=== PATIENT | female | born 1950 | race Caucasian/White ===

== ENCOUNTER 2019-07-06 01:04 | Outpatient (CLI) | payer MEDICARE, MEDICAID, SELFPAY ==
--- NOTE | 2019-07-06 11:05 | DI.RAD_ITS ---
EXAM: XR HAND RT COMPLETE INDICATION: Rt hand deformity, M21.941, RA, M06.9, rt hand pain, M79.641, OA, M19.90. COMPARISON: DEXA BONE DENSITY WITH CHITRA from 09/08/2017 TECHNIQUE: 2D digital imaging was performed. FINDINGS: There is severe narrowing of the radiocarpal joint space. There are bony erosions of the distal radi us, ulnar styloid, navicular and triquetrum. There is also severe narrowing at the proximal carpal r ow and at the carpal metacarpal joints. Bony erosions are seen at the base of the 1st metacarpal and within the trapezium. The 3rd metacarpophalangeal joint shows severe narrowing as well as erosions on both sides of the joint. The remaining metacarpophalangeal joints are unremarkable. There is some spurring and narrowing of the interphalangeal joints of the fingers and thumb without evidence of er osions. IMPRESSION: Severe joint space narrowing and bony erosions in the carpal region as well as 3rd metacarpophalangea l joint are consistent with rheumatoid arthritis.
[2019-07-06 19:32] LABS: HCT 32.4 % (36.0-46.0); Mean Corp. HGB Concentration 30.9 g/dL (32.0-36.0); Mean Corpuscular Hemoglobin 25.1 pg (27.0-33.0); Mean Corpuscular Volume 81.2 fL (80-95); Mean Platelet Volume 9.9 fL (8.0-11.0); Platelet Count 527 x1000/uL (130-400); RBC 3.99 m/cumm (4.00-5.20); RBC Distribution Width 15.8 % (11.7-14.6); White Blood Cell Count 6.56 k/cumm (4.4-10.8)
[2019-07-06 19:50] LABS: Anion Gap 9.7 mmol/L (3-11); BUN 17 mg/dL (7-18); CO2 30.3 mmol/L (21.0-32.0); CREATININE 0.88 mg/dL (0.55-1.02); Calcium 9.5 mg/dL (8.5-10.1); Calculated LDL 126 mg/dL (<100); Chloride 101 mmol/L (98-107); Cholesterol 197 mg/dL (<200); Glucose 101 mg/dL (74-106); HDL Cholesterol 57 mg/dL (40-60); Potassium 4.5 mmol/L (3.5-5.1); Sodium 141 mmol/L (136-145); Triglyceride 74 mg/dL (<150)
== END 2019-07-06 01:24 ==
PROVIDERS: PCP Student in an Organized Health Care Education/Training Program; Visit Provider Student in an Organized Health Care Education/Training Program
DX: M06.9 Rheumatoid arthritis, unspecified (principal); M79.641 Pain in right hand; M21.941 Unspecified acquired deformity of hand, right hand; M19.041 Primary osteoarthritis, right hand; R79.89 Other specified abnormal findings of blood chemistry; E78.5 Hyperlipidemia, unspecified; D64.9 Anemia, unspecified; Z82.49 Family history of ischemic heart disease and other diseases of the circulatory system
CPT/HCPCS: 80048; 80061; 85027; 73130

== ENCOUNTER 2020-03-02 04:03 | Outpatient (CLI) | payer MEDICARE, MEDICAID, SELFPAY ==
--- NOTE | 2020-03-02 15:22 | DI.MAMMO_ITS ---
EXAM: MAMMO SCREENING CLINICAL HISTORY: screening,Z12.39 TECHNIQUE: Mammograms were interpreted according to the usual protocol including computer analysis w [employer] CAD system, tomosynthesis and C-view imaging. COMPARISON: FINDINGS: The breasts are of moderate density with fairly symmetrical distribution of fibroglandular tissue. N o dominant mass is identified in either breast. There are multiple areas of grouped calcifications o f both breasts, these appear to be consistent with acinar benign calcifications and show little inter nadiya change in comparison with prior mammogram of September 2017. No new suspicious clumped microcalcificat ion seen. No other significant change IMPRESSION: . no specific evidence of malignancy at this time. Routine screening examinations are suggested at y early intervals in this age group according to the ACS ACR guidelines. BI-RADS Category 1 - Negative Breast Density - Category B - Scattered areas of fibroglandular density
== END 2020-03-02 04:23 ==
PROVIDERS: PCP Student in an Organized Health Care Education/Training Program; Visit Provider Student in an Organized Health Care Education/Training Program
DX: Z12.31 Encounter for screening mammogram for malignant neoplasm of breast (principal)
CPT/HCPCS: 77063; 77067

== ENCOUNTER 2021-01-11 10:11 | Outpatient (REF) | payer MEDICARE, MEDICAID, SELFPAY ==
[2021-01-11 15:02] LABS: HCT 31.1 % (36.0-46.0); HGB 9.4 g/dL (11.2-15.7); MCH 23.5 pg (27.0-33.0); MCHC 30.2 % (32.0-36.0); MCV 77.8 fL (80-95); MPV 10.2 fL (8.0-11.0); Platelet Count 511 10^3/uL (130-400); RDW 16.6 % (11.7-14.6); RDW-SD 46.4 fL
[2021-01-11 16:44] LABS: ALT 13 U/L (14-59); AST 16 U/L (15-37); Albumin 3.3 g/dL (3.4-5.0); Alkaline Phosphatase 103 U/L (46-116); Anion Gap 9.6 mmol/L (3-11); BUN 17 mg/dL (7-18); Bilirubin, Total 0.2 mg/dL (0.2-1.0); CO2 28.4 mmol/L (21.0-32.0); CREATININE 0.7 mg/dL (0.55-1.02); Calcium 9.6 mg/dL (8.5-10.1); Calculated LDL 127 mg/dL (<100); Chloride 101 mmol/L (98-107); Cholesterol 208 mg/dL (<200); Glucose 95 mg/dL (74-106); HDL Cholesterol 63 mg/dL (40-60); Potassium 4.7 mmol/L (3.5-5.1); Sodium 139 mmol/L (136-145); TSH (W/Ref FT4) 2.18 uIU/mL (0.36-3.74); Total Protein 8.1 g/dL (6.4-8.2); Triglyceride 93 mg/dL (<150); Vitamin B12 314 pg/mL (193-986)
== END 2021-01-11 10:12 | disposition home or self-care (01) ==
LOC: LBO 10:11
PROVIDERS: PCP Student in an Organized Health Care Education/Training Program; Visit Provider Student in an Organized Health Care Education/Training Program
DX: R53.83 Other fatigue (principal); R79.89 Other specified abnormal findings of blood chemistry; R20.0 Anesthesia of skin; R26.89 Other abnormalities of gait and mobility; D64.9 Anemia, unspecified; K21.9 Gastro-esophageal reflux disease without esophagitis; R03.0 Elevated blood-pressure reading, without diagnosis of hypertension; Z13.220 Encounter for screening for lipoid disorders; E86.0 Dehydration; Z79.1 Long term (current) use of non-steroidal anti-inflammatories (NSAID); Z86.2 Personal history of diseases of the blood and blood-forming organs and certain disorders involving the immune mechanism
CPT/HCPCS: 80053; 80061; 85027; 82607; 84443

== ENCOUNTER 2021-09-12 11:14 | Outpatient (REF) | payer OTHER, MEDICAID, SELFPAY ==
[2021-09-12 15:49] LABS: HCT 29.1 % (36.0-46.0); HGB 8.4 g/dL (11.2-15.7); MCH 21.7 pg (27.0-33.0); MCHC 28.9 % (32.0-36.0); MCV 75.2 fL (80-95); MPV 10.6 fL (8.0-11.0); Platelet Count 436 10^3/uL (130-400); RBC 3.87 10^6/uL (3.93-5.22); RDW 17.9 % (11.7-14.6); RDW-SD 48.2 fL; Reticulocyte 1.4 % (0.5-2.4); WBC 6.69 10^3/uL (4.4-10.8)
[2021-09-12 16:02] LABS: Iron 20 ug/dL (50-170); Total Iron Binding Capacity 390 ug/dL (250-450); Transferrin Sat 5 % (15-50)
[2021-09-12 19:08] LABS: ALT 9 U/L (14-59); AST 14 U/L (15-37); Albumin 3.4 g/dL (3.4-5.0); Alkaline Phosphatase 119 U/L (46-116); Anion Gap 8.6 mmol/L (3-11); BUN 17 mg/dL (7-18); Bilirubin, Total 0.2 mg/dL (0.2-1.0); CO2 28.4 mmol/L (21.0-32.0); CREATININE 0.8 mg/dL (0.55-1.02); Calcium 9.3 mg/dL (8.5-10.1); Chloride 102 mmol/L (98-107); Ferritin 13 ng/mL (8-252); Folate 4.5 ng/mL (8.6-20.0); Glucose 93 mg/dL (74-106); Potassium 4.8 mmol/L (3.5-5.1); Sodium 139 mmol/L (136-145); TSH (W/Ref FT4) 3.25 uIU/mL (0.36-3.74); Total Protein 8.2 g/dL (6.4-8.2); Vitamin B12 225 pg/mL (193-986)
== END 2021-09-12 11:15 | disposition home or self-care (01) ==
LOC: LBN 11:14
PROVIDERS: PCP Student in an Organized Health Care Education/Training Program; Visit Provider Student in an Organized Health Care Education/Training Program
DX: D64.9 Anemia, unspecified (principal); K21.9 Gastro-esophageal reflux disease without esophagitis; K90.9 Intestinal malabsorption, unspecified; M06.9 Rheumatoid arthritis, unspecified; Z79.899 Other long term (current) drug therapy; I10 Essential (primary) hypertension; R77.0 Abnormality of albumin
CPT/HCPCS: 80053; 82306; 85027; 82607; 82728; 82746; 83540; 83550; 84443; 85045

== ENCOUNTER 2021-09-24 14:40 | Outpatient (CLI) | payer OTHER, MEDICAID, SELFPAY ==
--- NOTE | 2021-09-24 14:30 | RT.EKG_ITS ---
APPROVED REPORT Exam: Resting ECG Reason for Exam: chest pain Patient Location: O HR:55 bpm ECG Measurements Heart Rate 55 AXIS SD 135 P 34 QRSd 95 QRS -8 QT 468 T 19 QTc 446 Conclusion Sinus bradycardia...rate< 60 Normal Electrocardiogram
== END 2021-09-24 14:41 | disposition home or self-care (01) ==
LOC: DI.KIM 14:41
PROVIDERS: PCP Student in an Organized Health Care Education/Training Program; Visit Provider Student in an Organized Health Care Education/Training Program
DX: R07.9 Chest pain, unspecified (principal)
CPT/HCPCS: 93010

== ENCOUNTER → 2021-10-02 00:12 | Outpatient (CLI) | payer OTHER, MEDICAID, SELFPAY ==
--- NOTE | 2021-10-02 10:28 | DI.US_ITS ---
APPROVED REPORT EXAM: Comprehensive 2D, Doppler, and color-flow Echocardiogram Patient Location: Out-Patient [employer] Operator: Yarelis Singletary RDCS (AE) Indications: New onset chest pain, bilateral ankle edema Other Information Study Quality: Adequate Conclusion Normal left ventricular wall thickness and chamber size. Estimated ejection fraction is 60%. Wall m otion is normal Normal right ventricular size and systolic function Both atria are normal in size There is no structural or hemodynamically significant valvular disease Mildly dilated ascending aorta measuring 3.6 cm Estimated right ventricular systolic pressure is 31 mmHg Wall motion Left Ventricle The left ventricle is normal size. The left ventricular systolic function is normal. The left ventric ular ejection fraction is within the normal range. There is normal left ventricular wall thickness. T here is normal LV segmental wall motion. There is no ventricular septal defect visualized. LVEF is 60 %. Right Ventricle The right ventricle is normal size. The right ventricular systolic function is normal. The RVSP is 31 .4 mmHg. Atria The left atrium size is normal. The right atrium size is normal. The interatrial septum is intact wit h no evidence for an atrial septal defect. Aortic Valve The aortic valve is normal in structure. Aortic valve is trileaflet. There is no aortic valvular sten osis. No aortic regurgitation is present. Mitral Valve The mitral valve is normal in structure. No evidence of mitral valve stenosis. Trace to mild mitral r egurgitation. Tricuspid Valve The tricuspid valve is normal in structure. There is no tricuspid valve stenosis. Trace tricuspid reg urgitation. Pulmonic Valve The pulmonary valve is normal in structure. There is no pulmonic valvular stenosis. There is no pulmo anish valvular regurgitation. Great Vessels The aortic root is normal in size. The ascending aorta is mildly dilated. Aortic arch is not well vis ualized. IVC is normal in size and collapses >50% with inspiration. Pericardium There is no pericardial effusion. 2D Dimensions IVSD d PLAX 0.97 cm F: 0.6-1.0 LV Vol A2C d MOD 152.4 mL LVPW d PLAX 0.97 cm F: 0.6 - 1.0 LV Vol A4C d MOD 136.8 mL LVID d PLAX 4.92 cm F: 3.8 - 5.2 LA vol/ BSA A4C s A-L 44.2 mL/m2 LVDs 3.25 cm F: 2.2 - 3.5 LA Area A4C s MOD 26.05 cm2 Ao Root d 2.85 cm F: 2.7 - 3.3 LV EF A4C MOD 59.0 % RA Area A4C 17.49 cm2 LV EF A2C MOD 60.4 % RA Vol/ BSA A4C s A-L 23.9 mL/m2 LV EF Biplane MOD 60.2 % Ao Asc Diam d 3.60 cm F: 2.3 - 3.1 SV 90.19 mL LV EF Teichholz 61.6 % SV Index 44.88 mL/m2 LVEF (Salcedo's) 60.20 % F: 54 - 74 LV Volume 112.18 mL F: 46 - 106 LV Volume Index 55.81 mL/m2 F: 29 - 61 LV Vol Biplane MOD 149.8 mL FS 33.15 % M-Mode TAPSE 2.64 cm (M/F) >1.7 LV Diastology MV E' medial 0.072 (>0.07 m/s) E/A Ratio 1.1 LV E/e MED 14.20 (<14) MV E Vmax 1.02 (0.4-1.3 m/s) MV E' lateral 0.077 (>0.1 m/s) MV A Vmax 0.95 (0.4-1.3 m/s) LV E/e LAT 13.30 (<14) MV E/A Ratio 1.02 MV E/E' medial 14.21 MV E/E' lateral 13.30 Aortic Valve LVOT Area 2.93 cm2 AoV Area Vmax 2.34 cm2 LVOT Vmax 1.61 m/s AoV Area/ BSA (Vmax) 1.16 cm2/m2 LVOT Mean Chaz. 1.04 m/s ADRIANNA Mean Chaz. 2.27 cm2 LVOT Peak Grad 10.4 mmHg ADRIANNA Mean Chaz. Index 1.13 cm2/m2 LVOT Mean Grad 5.2 mmHg LVOT VTI 0.372 m LVOT Diam s 1.90 cm AoV Vmax 2.02 m/s Velocity Ratio 0.79 AoV Mean Chaz. 1.35 m/s AoV Peak Grad 16.3 mmHg LVOT SV 109.05 mL AoV Mean Grad 8.2 mmHg AoV VTI 0.430 m AoV Area VTI 2.54 cm2 AoV Area/ BSA (VTI) 1.26 cm/m2 Mitral Valve MV DT 214 (160-240 msec) MV PHT 62 msec MV Area PHT 3.54 cm2 MV VTI 0.404 m MV Area VTI 2.70 (4.0-6.0 cm2) Pulmonary Valve PV Vmax 1.38 (0.5-1.5 m/s) RVOT Peak Gr. 2.66 mmHg PV Peak Grad 7.6 mmHg RVOT Mean Gr. 1.25 mmHg PV Mean Grad 3.6 mmHg RVOT VTI 0.171 m PV VTI 0.288 m RVOT Vmax 0.81 m/s Tricuspid Valve TR Peak Grad 28.3 mmHg TR Vmax 2.66 m/s RA Pressure 3.00 mmHg RVSP (TR) 31.4 mmHg
== END ==
PROVIDERS: PCP Student in an Organized Health Care Education/Training Program; Visit Provider Student in an Organized Health Care Education/Training Program
DX: M25.471 Effusion, right ankle (principal); M25.472 Effusion, left ankle; R07.9 Chest pain, unspecified; I77.819 Aortic ectasia, unspecified site
CPT/HCPCS: 93306

== ENCOUNTER → 2021-10-24 01:02 | Outpatient (CLI) | payer OTHER, MEDICAID, SELFPAY ==
--- NOTE | 2021-10-24 08:00 | DI.NM_ITS ---
APPROVED REPORT Exam: Pharmacologic Patient Location: Out-Patient Room/Bed: Stress Nurse: Yashira Nassar RN Ordering Provider:TOM TORRES, Contact Number: [phone] BMI: 41.14 Baseline Rhythm: Sinus Bradycardia Indications: SUE/Chest pain Medical History Medical History: HLD, Obesity, Fibromyalgia, Depression, RA, Osteoarthritis, GERD, Anemia, New onset edema, Neuropathy migraines Cardiac Medications: Sumatripen succinate, Omeprazole, Epinephrine pen, Allergies: PCN, bee venum, Oxycodone, Amitriptyline, Aspirin, Bupropion, Hydrocodone, Hydroxychloroqu ine Cardiac Risk Factors: Hyperlipidemia, FHX of CAD, Obesity Previous Cardiac Procedures: none Pretest Chest Pain Characteristics: Non exertional/atypical chest pain Exercise History: Sedentary Physical Disabilities: none Lung Sounds: Clear to auscultation Heart Sounds: Regular Stress Test Details Test: Pharmacologic stress testing performed using 0.4 mg of regadenoson per 5 mL given IV over 10 s econds. Reason for pharmacologic stress test: physical limitation. Nuclear Acquisition: Rest Tc-99m/Stress Tc-99m 1 day Rest Isotope: Tc-99m Sestamibi. Dose: 9.9 Date: 10/24/2021 Injection Time: 1110 Stress Isotope: Tc-99m Sestamibi. Dose: 31.3 Date: 10/24/2021 Injection Time: 1255 HR Resting HR Supine: 50 bpm Max Heart Rate (APMHR): 150.899160 bpm Resting HR Standin bpm Target HR (85% APMHR): 127.841696 bpm Max HR Achieved: 84 bpm % of APMHR: 56.00 Recovery HR: 69 bpm BP Resting BP Supine: 172/78 mmHg Resting BP Standin/72 mmHg Max BP: 172/78 mmHg Recovery BP: 142/70 mmHg ECG Resting ECG: Sinus Bradycardia Ectopy: none Stress ECG: Sinus Rhythm ST Change: No significant ST segment changes noted Arrhythmia: None Recovery ECG: Sinus Rhythm Recovery ST Change: No significant ST segment changes noted Recovery Arrhythmia: none Clinical Stress Symptoms: Nausea, Dizziness Rate Pressure Product: [id number] Stress ECG Conclusion 1. The resting electrocardiogram was within normal limits 2. Patient underwent pharmacologic stress with regadenoson 3. Blunted hemodynamics. Maximum heart rate achieved was 56% of predicted for age 4. The electrocardiographic portion of the test was nondiagnostic 5. See MPI report Stress Test Summary STAGE HR BP Symptoms NOTES Supine 50 172/78 1 min post Lexiscan injection 83 152/60 nausea 3 min post Lexiscan injection 76 148/62 nausea 6 min post Lexiscan injection 69 142/70 symptom subsided Attempted to exercise patient, pt lasted only 8 seconds on treadmill complained of dizzyness and unab le to keep up with treadmill speed. MPI Conclusion There is no evidence of myocardial ischemia Breast attenuation artifact with mild fixed decreased uptake in the anterior wall EF 46% Radiologist Interpretation Radiologist Interpretation by: Connor Yoon MD Interpretation Date/Time: 10/24/2021 17:17:48
[2021-10-24] MEDS: Regadenoson 0.4 MG/5 ML SYR IVP (13:43)
== END ==
PROVIDERS: PCP Student in an Organized Health Care Education/Training Program; Visit Provider Student in an Organized Health Care Education/Training Program
DX: D64.9 Anemia, unspecified (principal); M25.471 Effusion, right ankle; M25.472 Effusion, left ankle; R07.89 Other chest pain; R06.09 Other forms of dyspnea
CPT/HCPCS: 78452; 93016; 93018; 93017; J2785

== ENCOUNTER → 2021-11-12 09:58 | Outpatient (BNVA) | payer OTHER, MEDICAID, SELFPAY | PROVIDERS: PCP Student in an Organized Health Care Education/Training Program; Referring Provider Student in an Organized Health Care Education/Training Program; Visit Provider Internal Medicine Cardiovascular Disease | DX: R07.89 Other chest pain (principal) | CPT/HCPCS: 99203 ==

== ENCOUNTER 2021-11-19 02:27 | Outpatient (RCR) | payer OTHER, MEDICAID, SELFPAY ==
[2021-11-19] MEDS: Normal Saline Flush 10 ML SYR IVP (11:14)
[2021-11-19] MEDS: IRON SUCROSE COMPLEX 200 MG in Normal Saline 100 ML 440 MG IVPB (11:22)
== END 2021-11-21 23:59 | disposition home or self-care (01) ==
LOC: INF 02:27
PROVIDERS: PCP Student in an Organized Health Care Education/Training Program; Visit Provider Student in an Organized Health Care Education/Training Program
DX: E61.1 Iron deficiency (principal); R79.89 Other specified abnormal findings of blood chemistry; R53.83 Other fatigue
CPT/HCPCS: 96365; J1756

== ENCOUNTER 2021-12-17 03:12 | Outpatient (RCR) | payer OTHER, MEDICAID, SELFPAY ==
[2021-11-28] MEDS: IRON SUCROSE COMPLEX 200 MG in Normal Saline 100 ML 440 MG IVPB (11:24)
[2021-11-28] MEDS: Normal Saline Flush 10 ML SYR IVP (11:25)
[2021-12-03] MEDS: Normal Saline Flush 10 ML SYR IVP (11:08)
[2021-12-03] MEDS: IRON SUCROSE COMPLEX 200 MG in Normal Saline 100 ML 440 MG IVPB (11:08)
[2021-12-17] MEDS: Normal Saline Flush 10 ML SYR IVP (11:27)
[2021-12-17] MEDS: IRON SUCROSE COMPLEX 200 MG in Normal Saline 100 ML 440 MG IVPB (11:27)
== END 2021-12-22 23:59 | disposition home or self-care (01) ==
LOC: INF 03:12
PROVIDERS: PCP Student in an Organized Health Care Education/Training Program; Visit Provider Student in an Organized Health Care Education/Training Program
DX: E61.1 Iron deficiency (principal); D64.9 Anemia, unspecified; R79.89 Other specified abnormal findings of blood chemistry; R53.83 Other fatigue
CPT/HCPCS: 96365; J1756

== ENCOUNTER 2021-12-26 02:31 | Outpatient (RCR) | payer OTHER, MEDICAID, SELFPAY ==
[2021-12-26] MEDS: Normal Saline Flush 10 ML SYR IVP (11:02)
[2021-12-26] MEDS: IRON SUCROSE COMPLEX 200 MG in Normal Saline 100 ML 440 MG IVPB (11:29)
== END 2022-01-22 23:59 | disposition home or self-care (01) ==
LOC: INF 02:31
PROVIDERS: PCP Student in an Organized Health Care Education/Training Program; Visit Provider Student in an Organized Health Care Education/Training Program
DX: E61.1 Iron deficiency (principal); D64.9 Anemia, unspecified; R79.89 Other specified abnormal findings of blood chemistry; R53.83 Other fatigue
CPT/HCPCS: 96365; J1756

== ENCOUNTER 2022-01-28 11:54 | Outpatient (REF) | payer OTHER, MEDICAID, SELFPAY ==
[2022-01-28 15:07] LABS: Abs Immature Grans 0.01 10^3/uL (0.0-0.06); Absolute Basophil Count 0.06 10^3/uL (0.0-0.2); Absolute Eosinophil Count 0.19 10^3/uL (0.0-0.7); Absolute Monocyte Count 0.56 10^3/uL (0.1-0.8); Absolute Neutrophil Count 4.41 10^3/uL (1.2-6.7); Basophils % 0.9; HCT 33.4 % (36.0-46.0); HGB 10.4 g/dL (11.2-15.7); Immature Grans % 0.2; Lymphocytes % 17.4; MCHC 31.1 % (32.0-36.0); MCV 80 fL (80-95); MPV 10.8 fL (8.0-11.0); Monocytes % 8.8; Neutrophils % 69.7; Platelet Count 331 10^3/uL (130-400); RBC 4.16 10^6/uL (3.93-5.22); RDW-SD 63.3 fL; WBC 6.33 10^3/uL (4.4-10.8)
[2022-01-28 16:01] LABS: Diff Comment RBC Morph Reviewed
[2022-01-28 16:02] LABS: Anisocytosis 2+; Basophilic Stippling 1+; Hypochromasia 1+; Microcytosis 1+; Poikilocytes 1+; Polychromasia Present
[2022-01-28 16:22] LABS: Iron 27 ug/dL (50-170)
[2022-01-28 16:58] LABS: ALT 16 U/L (14-59); AST 21 U/L (15-37); Albumin 3.5 g/dL (3.4-5.0); Alkaline Phosphatase 99 U/L (46-116); Anion Gap 7.2 mmol/L (3-11); BUN 17 mg/dL (7-18); Bilirubin, Total 0.3 mg/dL (0.2-1.0); CO2 30.8 mmol/L (21.0-32.0); CREATININE 0.7 mg/dL (0.55-1.02); Calcium 9.1 mg/dL (8.5-10.1); Chloride 104 mmol/L (98-107); Estimated GFR 92.41 (mL/min/1.73m2); Ferritin 86 ng/mL (8-252); Glucose 97 mg/dL (74-106); Potassium 4.9 mmol/L (3.5-5.1); Sodium 142 mmol/L (136-145); Total Protein 7.9 g/dL (6.4-8.2)
== END 2022-01-28 11:55 | disposition home or self-care (01) ==
LOC: LBN 11:54
PROVIDERS: PCP Student in an Organized Health Care Education/Training Program; Visit Provider Student in an Organized Health Care Education/Training Program
DX: D64.9 Anemia, unspecified (principal); N28.9 Disorder of kidney and ureter, unspecified
CPT/HCPCS: 80053; 82728; 83540; 85025

== ENCOUNTER → 2022-01-28 16:05 | Outpatient (CLI) | payer OTHER, MEDICAID, SELFPAY ==
--- NOTE | 2022-01-28 11:45 | DI.RAD_ITS ---
Exam(s) XR FOOT RT COMPLETE EXAM: XR FOOT RT COMPLETE CLINICAL HISTORY: pain out of proportion to sprain in september M79.671 PAIN RT FOOT. TECHNIQUE: 2D digital imaging was performed of the right foot. Three images were obtained. AP, obl ique and lateral views were obtained. COMPARISON: CR RIGHT FOOT LIMITED from 09/15/2013 FINDINGS: BONES: No acute fracture is present. No bony destructive lesion is seen. There is a well-circumscribe d cyst in the navicular. JOINTS: No dislocation present. At the 3rd through 5th metacarpal joints there is joint space narrowi ng and marginal erosions noted. At the 1st MTP joint there is joint space narrowing, hypertrophy and subchondral cysts. Mild hypertrophic changes are seen in the midfoot. SOFT TISSUE: There is diffuse soft tissue swelling of the foot. IMPRESSION: 1. No definite acute fracture or dislocation is seen. If symptoms persist a follow-up examination ma y be obtained to assess for evidence of healing. 2. Arthritic changes seen at the metacarpophalangeal joints suggestive of an inflammatory arthritis. Please correlate clinically. 3. Degenerative changes of the foot. 4. Diffuse soft tissue swelling of the foot. DATA REPOSITORY: RADIATION DOSE DELIVERED:
== END ==
PROVIDERS: PCP Student in an Organized Health Care Education/Training Program; Visit Provider Student in an Organized Health Care Education/Training Program
DX: M19.071 Primary osteoarthritis, right ankle and foot (principal)
CPT/HCPCS: 73630

== ENCOUNTER 2022-05-14 15:36 | Emergency (ER) | payer OTHER, MEDICAID, SELFPAY ==
[2022-05-14 15:40] VITALS: BP 163/63; PULSE 77; RESP 18; TEMP 37; O2SAT 98
--- NOTE | 2022-05-14 15:56 | ED.GENADUL_ITS ---
Discharge Plan Disposition Patient Disposition: Home Condition: Good Discharge Details Clinical Impression: Frostbite of right great toe Primary Care Provider: Tameka Ware ED Provider: Liam Montes Home Meds and New Rx's Prescriptions: No Action cholecalciferol (vitamin D3) 50 mcg (2,000 unit) capsule 50 mcg PO DAILY Hold Instructions: Home Medication placed on hold at Doctor's office (DME) Incontinence pads MED See Rx Instructions .Route .MEDSUPPLY Qty: 150 0RF Rx Instructions: As directed sumatriptan succinate 50 mg tablet 50 mg PO ONCE Qty: 30 0RF Rx Instructions: Take 50mg by mouth ONCE. If no response in 2hrs, a 2nd dose can be taken, not to exceed 200mg/day or > 4 days in a month. sennosides-docusate sodium [Senna-S] 8.6-50 mg tablet 1 tab-cap PO DAILY Qty: 90 3RF citalopram 20 mg tablet 20 mg PO DAILY Qty: 90 3RF Rx Instructions: Take with 10mg tablet for a total of 30mg daily. 09/24/21 citalopram 10 mg tablet 10 mg PO DAILY Qty: 90 3RF Rx Instructions: Take with 20mg tablet for a total of 30mg daily. 09/24/21 alpha lipoic acid 100 mg capsule 100 mg PO TID Qty: 270 5RF Rx Instructions: Take 1 capsule with meal x 1wk, then increase to 1 cap BID x 1wk, then 1cap TID. If effective may titrate to MDD of 200mg TID with meals. epinephrine [EpiPen 2-Leon] 0.3 mg/0.3 mL auto-injector 0.3 mg IM PRN Qty: 2 1RF Rx Instructions: for allergic reaction prevagen See Rx Instructions .ROUTE .COMPLEX Qty: 90 1RF Rx Instructions: Supplement Trial, as recommended by pharmacist; Supplement Trial cholecalciferol (vitamin D3) 250 mcg (10,000 unit) capsule 250 mcg PO QWEEK Qty: 10 0RF Rx Instructions: High dose WEEKLY, then return to 1,000 units/daily Nurtec ODT 75 mg tablet,disintegrating 75 mg PO ONCE PRN (Reason: migraine headache) Qty: 30 1RF Rx Instructions: Continue acetaminophen [Arthritis Pain Relief (acetam)] 650 mg tablet extended release 650 mg PO .once a day PRN (Reason: fever) Qty: 90 1RF Zyrtec 10 mg capsule 10 mg PO DAILY Qty: 90 3RF Rx Instructions: OTC, taking daily now vs just seasonally alpha lipoic acid 100 mg capsule 100 mg PO TID Qty: 90 1RF Rx Instructions: Trial for nerve health; Start @ 1/day in AM x 3 days, then add @ meals for 3/day. pyridoxine (vitamin B6) 100 mg tablet 100 mg PO BID Qty: 60 1RF Rx Instructions: Trial for nerve health. Review per Super B. thiamine HCl (vitamin B1) 100 mg tablet 100 mg PO DAILY Qty: 30 1RF Rx Instructions: Trial for nerve health. Rvw with Super-B. pregabalin 100 mg capsule 100 mg PO QHS Qty: 90 1RF Rx Instructions: increase from 75mg, goal of 150mg BID multivitamin [Once Daily] 1 EACH tablet 1 ea PO DAILY Rx Instructions: every other day. Super B Complex + C 150 mg tablet 1 tab PO DAILY Rx Instructions: every other day ipratropium bromide 21 mcg (0.03 %) spray,non-aerosol 2 spray NS TID PRN (Reason: allergy symptoms) Qty: 1 0RF Rx Instructions: as directed for allergic rhinitis (uses year round) ibuprofen 800 mg tablet 800 mg PO TID PRN (Reason: fever or pain) Qty: 90 3RF Hold Instructions: Changed by Provider Rx Instructions: sparingly for arthritic pain WITH FOOD (no longer taking celebrex) omeprazole 40 mg capsule,delayed release(DR/EC) 40 mg PO BID Qty: 180 3RF Rx Instructions: BID per GI fluticasone propionate 50 mcg/actuation spray,suspension 1 spray intranasal .COMPLEX Qty: 16 1RF Rx Instructions: 1 spray intranasal; Nervive 1 ea PO DAILY Qty: 90 1RF Rx Instructions: Supplement naproxen 500 mg tablet 500 mg PO BID PRN (Reason: pain) Qty: 60 2RF Rx Instructions: (do not take with ibuprofen/advil). ER not covered by insurance. diclofenac sodium 1 % gel 4 g topical QID Qty: 100 2RF Rx Instructions: apply to single foot, @ top of foot @ around ankles magnesium oxide 400 mg magnesium capsule 400 mg PO DAILY Qty: 90 3RF Rx Instructions: Take (1) every evening .. helps with the low potassium, and may help with headache, muscle pains Discharge Instructions Instructions: Frostbite (ED) Additional Instructions: Continue to keep toe clean warm and dry. Monitor for signs of infection and if these occur then return to ED or follow up with your Primary care office. It is reccomended to follow up with your Primary care office next week for recheck and to ensure proper healing. Referrals: Tameka Ware DO [Primary Care Provider] - 1 week Discharge Data Discharge Date/Time-TO BE ENTERED AT DEPARTURE: 05/14/22 16:13 Medical Decision Making Patient presenting to the emergency department for chief complaint of frostbite to right great toe. She states that she had been walking outside in the snow when snow got into her shoe. She did not realize it until later when she took off her shoe. Patient denies any other symptoms. Physical exam shows blackened tissue to the plantar aspect of the right toe. Patient does have two-point discrimination intact and does have sensation below the blackened tissue. Given that this occurred 1 week ago and I see no signs of secondary infection encourage patient to continue to monitor and described standard acute wound care for frostbite along with return and follow-up precautions. I do not feel that tissue should be removed at this point as it is intact. After discussion of diagnosis and plan of care patient has no further needs, questions, or concerns and states clear understanding to return to the emergency department for any worsening symptoms. This documentation was generated using [employer] dictation system, please disregard any oddities of phrase or misspellings. HPI General Mode of arrival: ambulatory . Date/Time Provider Initiated Documentation: 05/14/22 15:38 . Limitations to Documentation: no limitations . Information obtained by: patient and RN notes reviewed . History of Present Illness 71 year old F presents to the emergency department with the chief complaint of Frostbite on right foot, described as moderate, with intensity rated at 7. Quality is described as aching, and is localized to the right and lower extremity. Patient reports no radiation. Patient started experiencing this week(s) (1) and it has been constant. No relieving factors improve symptom(s), No exacerbating factors reported . Patient notes no other symptoms.. Patient did receive the following treatments prior to arrival, none Related Data Home Medications Medication Instructions Recorded Confirmed multivitamin (Once Daily tablet) 1 ea PO DAILY 07/27/12 05/12/22 vitamin B comp with C no.4 150 mg 1 tab PO DAILY 03/03/18 05/12/22 tablet (Super B Complex + C) ipratropium bromide 21 mcg (0.03 2 spray NS TID PRN allergy 09/06/20 05/12/22 %) nasal spray symptoms #1 unit cholecalciferol (vitamin D3) 50 50 mcg PO DAILY 12/13/20 05/12/22 mcg (2,000 unit) capsule Incontinence pads #150 ea 01/11/21 05/12/22 sumatriptan succinate 50 mg tablet 50 mg PO ONCE #30 tab-caps 01/11/21 05/12/22 ibuprofen 800 mg tablet 800 mg PO TID PRN fever or pain 05/08/21 05/12/22 #90 tab-caps omeprazole 40 mg capsule,delayed 40 mg PO BID #180 caps 06/09/21 05/12/22 release fluticasone propionate 50 1 spray intranasal .COMPLEX #16 mL 07/11/21 05/12/22 mcg/actuation nasal spray,suspension epinephrine 0.3 mg/0.3 mL 0.3 mg (0.3 mL) IM PRN bee sting 09/22/21 05/12/22 injection, auto-injector (EpiPen #2 multiple units 2-Leon) alpha lipoic acid 100 mg capsule 100 mg PO TID peripheral 09/24/21 05/12/22 neuropathy #270 caps citalopram 10 mg tablet 10 mg PO DAILY #90 tabs 09/24/21 05/12/22 citalopram 20 mg tablet 20 mg PO DAILY #90 tabs 09/24/21 05/12/22 sennosides 8.6 mg-docusate sodium 1 tab-cap PO DAILY #90 tabs 09/24/21 05/12/22 50 mg tablet (Senna-S) Nervive 1 ea PO DAILY #90 tabs 11/08/21 05/12/22 naproxen 500 mg tablet 500 mg PO BID PRN pain #60 tabs 11/21/21 05/12/22 cholecalciferol (vitamin D3) 250 250 mcg PO QWEEK #10 caps 01/28/22 05/12/22 mcg (10,000 unit) capsule prevagen See Rx Instructions .Route 01/28/22 05/12/22 .COMPLEX #90 ea rimegepant 75 mg disintegrating 75 mg PO ONCE PRN migraine 01/28/22 05/12/22 tablet (Nurtec ODT) headache #30 tabs acetaminophen 650 mg 650 mg PO .once a day PRN fever 04/18/22 05/12/22 tablet,extended release (Arthritis #90 tabs Pain Relief (acetaminophen) ER) alpha lipoic acid 100 mg capsule 100 mg PO TID #90 caps 04/18/22 05/12/22 cetirizine 10 mg capsule (Zyrtec) 10 mg PO DAILY #90 caps 04/18/22 05/12/22 pregabalin 100 mg capsule 100 mg PO QHS #90 caps 04/18/22 05/12/22 pyridoxine (vitamin B6) 100 mg 100 mg PO BID #60 tabs 04/18/22 05/12/22 tablet thiamine HCl (vitamin B1) 100 mg 100 mg PO DAILY #30 tabs 04/18/22 05/12/22 tablet diclofenac sodium 1 % topical gel 4 g topical QID acute 04/30/22 05/12/22 musculo-skeletal pain #100 grams magnesium oxide 400 mg PO DAILY hypokal #90 05/01/22 05/12/22 tab-caps Previous Rx's Medication Instructions Recorded ipratropium bromide 21 mcg (0.03 2 spray NS TID PRN allergy 09/06/20 %) nasal spray symptoms #1 unit Incontinence pads #150 ea 01/11/21 sumatriptan succinate 50 mg tablet 50 mg PO ONCE #30 tab-caps 01/11/21 ibuprofen 800 mg tablet 800 mg PO TID PRN fever or pain 05/08/21 #90 tab-caps omeprazole 40 mg capsule,delayed 40 mg PO BID #180 caps 06/09/21 release fluticasone propionate 50 1 spray intranasal .COMPLEX #16 mL 07/11/21 mcg/actuation nasal spray,suspension epinephrine 0.3 mg/0.3 mL 0.3 mg (0.3 mL) IM PRN bee sting 09/22/21 injection, auto-injector (EpiPen #2 multiple units 2-Leon) alpha lipoic acid 100 mg capsule 100 mg PO TID peripheral 09/24/21 neuropathy #270 caps citalopram 10 mg tablet 10 mg PO DAILY #90 tabs 09/24/21 citalopram 20 mg tablet 20 mg PO DAILY #90 tabs 09/24/21 sennosides 8.6 mg-docusate sodium 1 tab-cap PO DAILY #90 tabs 09/24/21 50 mg tablet (Senna-S) Nervive 1 ea PO DAILY #90 tabs 11/08/21 naproxen 500 mg tablet 500 mg PO BID PRN pain #60 tabs 11/21/21 cholecalciferol (vitamin D3) 250 250 mcg PO QWEEK #10 caps 01/28/22 mcg (10,000 unit) capsule prevagen See Rx Instructions .Route 01/28/22 .COMPLEX #90 ea rimegepant 75 mg disintegrating 75 mg PO ONCE PRN migraine 01/28/22 tablet (Nurtec ODT) headache #30 tabs acetaminophen 650 mg 650 mg PO .once a day PRN fever 04/18/22 tablet,extended release (Arthritis #90 tabs Pain Relief (acetaminophen) ER) alpha lipoic acid 100 mg capsule 100 mg PO TID #90 caps 04/18/22 cetirizine 10 mg capsule (Zyrtec) 10 mg PO DAILY #90 caps 04/18/22 pregabalin 100 mg capsule 100 mg PO QHS #90 caps 04/18/22 pyridoxine (vitamin B6) 100 mg 100 mg PO BID #60 tabs 04/18/22 tablet thiamine HCl (vitamin B1) 100 mg 100 mg PO DAILY #30 tabs 04/18/22 tablet diclofenac sodium 1 % topical gel 4 g topical QID acute 04/30/22 musculo-skeletal pain #100 grams magnesium oxide 400 mg PO DAILY hypokal #90 05/01/22 tab-caps Allergies Allergy/AdvReac Type Severity Reaction Status Date / Time Penicillins Allergy Severe HOSPITALIZE Verified 04/18/22 15:50 D venom-honey bee Allergy Severe ANAPHYLAXSI Verified 04/18/22 15:50 S oxycodone AdvReac Severe HEART Verified 04/18/22 15:50 ATTACK LIKE SYMPTOMS amitriptyline AdvReac Intermediate WEIGHT Verified 04/18/22 15:50 GAIN ON 50 MG aspirin AdvReac Intermediate GI Verified 04/18/22 15:50 INTOLERANCE bupropion [From Wellbutrin] AdvReac Intermediate depression Verified 04/18/22 15:50 hydrocodone AdvReac Intermediate NAUSEA, Verified 04/18/22 15:50 CONFUSION hydroxychloroquine AdvReac Intermediate blurred Verified 04/18/22 15:50 vision and headache General Stated Complaint: Orthopedic SILVERIO: 4 Review of Systems Narrative: 6 systems reviewed and unremarkable except what is marked below. Integumentary/Breasts Skin/Breast: Reports as per HPI and Reports change in pigmentation PFSH All Active Problems (Updated 05/14/22 @ 16:00 by Liam Montes NP) Frostbite of right great toe (Acute) Hypertensive retinopathy (Acute ~02/19/22) early, both Eyes Chest wall muscle strain (Acute) Ejection fraction < 50% (Acute) Ankle edema, bilateral (Acute) new onset Atypical chest pain (Acute) Neuropathy (Chronic) vs fibro? myalgias? Fibromyalgia muscle pain (Acute) Anemia (Chronic) Incontinence in female (Acute) Complicated grief (Acute) Shoulder pain, right (Acute) Acute on chronic pain, injury? Depressive disorder, not elsewhere classified (Chronic 08/04/11) Stress due to illness of family member (Acute) Bro w/ lung CA; Sister with CAD, recent PM/Bypass); Sis w/ ut cancer... Seasonal affective disorder (Acute) Arthritis (Acute 09/12/13) Hallux valgus with bunions (Acute 10/24/13) Headache (Acute 08/31/12) Spondylosis of cervical spine (Acute 07/06/14) Toxic effect of venom (Acute 08/04/11) Sleep disorder (Acute 02/01/13) senior care ambien use Rheumatoid arthritis (Acute 09/20/13) R 2&3 MCP & TMP; [place]aut[place] [facility] [place] Primary osteoarthritis involving multiple joints (Acute 08/04/11) s/p bilateral TKA, following with Ortho (09/09/17) Obesity, Class III, BMI 40-49.9 (morbid obesity) (Acute 08/04/11) Weight goal: 190 Myalgia and myositis, unspecified (Acute 08/04/11) Fibromyalgia Migraine (Acute 12/06/12) SINCE PUBERTY; ANTONIO-MENSTRUAL UNTIL MENOPAUSE; WORSE SINCE ~05/2011; Topirimate helps, Dr Fuller, Dr Cooper 2012 Please evaluate for BOTOX for worsening migraines Localized adiposity of lower extremity (Acute 10/16/17[place] [facility] [place] Plastic surgery of bilateral legs, fullness surrounding knees. Surgical removal suggested Hyperlipidemia (Acute 08/04/11) LDL GOAL 130; CV risk 5.1% 05/2016 Hirsutism (Acute 08/04/11) Dr Clyde astudillo Headache (Acute 08/31/12) Dr Fuller 09/2012; chronic; [place] 03/22/13 Hallux abductovalgus with bunions (Acute 10/24/13) bilat Gastroesophageal reflux disease (Acute 08/04/11) + ON BA SWALLOW 11/2011; Omeprazole effective Familial tremor (Acute 09/08/16) similar to her two sisters Degenerative joint disease of cervical spine (Acute 07/06/14) Cervicalgia (Acute 08/04/11) WORK INJURY 2004 shoulder injury Atrophic vaginitis (Acute 12/26/14) Arthritis (Acute 09/12/13) R hand index middle MCP; R foot 2 3 MTP Allergic rhinitis (Acute 12/26/13) year round, sarah goldenrod & milkweed, rx OTC Loratadine Surgical History (Updated 02/28/22 @ 14:59 by Maude Rice RN) Abdominal hysterectomy (07/11/98) Dr Arellano, [facility] Appendectomy (07/11/98) Dr Arellano, along with hysterectomy section (05/06/75) Dr Grant, [facility] Cholecystectomy (02/10/12) Dr Funes Ligation of fallopian tube (11/12/75) Dr Castro, [facility] Replacement of total knee joint (05/25/06) R Knee Dr Ted Spicer R Knee revsion Dr Hernandez [facility] [place] [facility] [place] of total knee joint (07/25/09) R Knee Dr Ted Spicer R Knee revsion Dr Hernandez [facility] [place] [facility] [place] of total knee joint (09/02/11) R Knee Dr Ted Spicer R Knee revsion Dr Hernandez [facility] [place] [facility] [place] of lipoma (12/2018[place] [facility] [place] Family History Mother , breast ca at age 47. Tobacco dependence Breast cancer Lung cancer COPD (chronic obstructive pulmonary disease) Father , renal failure at age 62. Tobacco dependence COPD (chronic obstructive pulmonary disease) Atrial fibrillation Renal failure Sister Age: 67 Tobacco dependence Lung cancer COPD (chronic obstructive pulmonary disease) Bladder cancer Sister Age: 69 Tobacco dependence Diabetes Brother Age: 67 Tobacco dependence COPD (chronic obstructive pulmonary disease) Heart disease Paternal Grandmother Diabetes Social History Smoking/Tobacco Use Status: Never Smoking risk assessment performed?: Yes Alcohol Intake: current Alcohol Intake frequency: holidays/special occasions only Drug use: Never Substance use type: does not use Adopted: No Caregiver/Support person: No Foster care: No Household members: none Housing: apartment Number of Children: 1 number of grandchildren: 1 Education Level: master's degree Do you need help understanding health information?: Rarely current occupation: retired Pets and animals: Yes Sexually active: No Do you think of yourself as: straight/heterosexual Current gender identity: female What is your relationship status?: How often do you talk on the phone with friends or family?: three or more times per week How often do you get together with friends or relatives?: three or more times per week Do you belong to any clubs or organized social groups?: yes Panel score (0-1 are the most socially isolated patients): 2 What type of physical activity do you participate in: walking Duration: 30-45 minutes/day Frequency: 3-4 times per week Ellen/Episcopal: Faith Special ellen needs: No Seatbelt use: always Helmet use: Yes Helmet use: never Drive intox or ride w/intox student truck 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: No Do you feel safe at home: Yes Do you feel safe in your relationship?: Yes Exam Const General: cooperative, no acute distress and not ill appearing Orientation: alert, awake and oriented x3 Resp Effort & Inspection: normal respiratory effort, able to speak in complete sentences and no respiratory distress Cardio Rate: regular rate Rhythm: regular rhythm Pulses: posterior tibial pulses present, dorsalis pedis present and normal peripheral pulses Skin General skin exam: no rashes or lesions noted Neuro General: patient alert, patient awake, patient oriented x3, moves all extremities and no focal motor deficits Sensory Exam: no sensory deficits noted Extrem General: normal exam except as noted Right lower extremity: foot Details: abnormal to inspection Details: other (Blackened skin on plantar surface of distal right toe) Course Vital Signs Vital signs: Vital Signs Temperature 37.0 C 05/14/22 15:40 Pulse 77 05/14/22 15:40 Respiratory Rate 18 05/14/22 15:40 Blood Pressure 163/63 H 05/14/22 15:40 Pulse Oximetry 98 05/14/22 15:40 Temperature 37.0 C 05/14/22 15:40 Temperature Source Tympanic 05/14/22 15:40 Pulse 77 05/14/22 15:40 Respiratory Rate 18 05/14/22 15:40 Respiratory Effort 05/14/22 15:45 Blood Pressure 163/63 H 05/14/22 15:40 Blood Pressure Position Supine 05/14/22 15:40 Pulse Oximetry 98 05/14/22 15:40 Oxygen Delivery Method Room Air 05/14/22 15:40 Oxygen Flow Rate 0 05/14/22 15:40 Pain Level 7 05/14/22 15:40
--- NOTE | 2022-05-14 18:27 | NUR.NOTE ---
Nursing Note: referral to for frostbite can be phone visit
== END 2022-05-14 16:13 | disposition home or self-care (01) ==
PROVIDERS: Emergency Provider Nurse Practitioner Family; PCP Student in an Organized Health Care Education/Training Program
DX: T33.831A Superficial frostbite of right toe(s), initial encounter (principal); X31.XXXA Exposure to excessive natural cold, initial encounter
CPT/HCPCS: 99281; 99282

== ENCOUNTER 2022-07-21 02:56 | Outpatient (CLI) | payer OTHER, MEDICAID, SELFPAY ==
[2022-07-21 13:28] LABS: HCT 35.6 % (36.0-46.0); HGB 11.2 g/dL (11.2-15.7); MCH 27.2 pg (27.0-33.0); MCHC 31.5 % (32.0-36.0); MCV 86 fL (80-95); Platelet Count 288 10^3/uL (130-400); RBC 4.12 10^6/uL (3.93-5.22); RDW-SD 47.1 fL; WBC 5.58 10^3/uL (4.4-10.8)
[2022-07-21 14:20] LABS: Vitamin D 25 Total 31.2 ng/mL (30-100)
[2022-07-21 14:22] LABS: ALT 18 U/L (14-59); AST 19 U/L (15-37); Albumin 3.4 g/dL (3.4-5.0); Alkaline Phosphatase 121 U/L (46-116); Anion Gap 4.4 mmol/L (3-11); BUN 17 mg/dL (7-18); Bilirubin, Total 0.3 mg/dL (0.2-1.0); CO2 33.6 mmol/L (21.0-32.0); CREATININE 0.8 mg/dL (0.55-1.02); Calcium 9.8 mg/dL (8.5-10.1); Chloride 104 mmol/L (98-107); Estimated GFR 78.72 (mL/min/1.73m2); Folate 15.7 ng/mL (8.6-20.0); Glucose 97 mg/dL (74-106); Potassium 4.7 mmol/L (3.5-5.1); Sodium 142 mmol/L (136-145); Total Protein 8.2 g/dL (6.4-8.2); Vitamin B12 327 pg/mL (193-986)
[2022-07-21 14:24] LABS: Iron 41 ug/dL (50-170); Total Iron Binding Capacity 305 ug/dL (250-450); Transferrin Sat 13 % (15-50)
== END 2022-07-21 02:57 | disposition home or self-care (01) ==
PROVIDERS: PCP Student in an Organized Health Care Education/Training Program; Referring Provider Student in an Organized Health Care Education/Training Program; Visit Provider Student in an Organized Health Care Education/Training Program
DX: E66.01 Morbid (severe) obesity due to excess calories (principal); D64.9 Anemia, unspecified; G62.9 Polyneuropathy, unspecified; M06.9 Rheumatoid arthritis, unspecified; M79.7 Fibromyalgia; T50.905A Adverse effect of unspecified drugs, medicaments and biological substances, initial encounter; Z86.018 Personal history of other benign neoplasm; R60.9 Edema, unspecified; R74.8 Abnormal levels of other serum enzymes
CPT/HCPCS: 80053; 82306; 85027; 82607; 82746; 83540; 83550

== ENCOUNTER 2022-12-16 08:51 | Observation (INO) | payer OTHER, MEDICAID, SELFPAY ==
[2022-12-16] VITALS (8 sets, daily range): BP systolic 124–175; BP diastolic 59–101; PULSE 62–92; RESP 2–20; TEMP 36–37; O2SAT 94–98
--- NOTE | 2022-12-16 08:45 | RT.EKG_ITS ---
APPROVED REPORT Exam: Resting ECG Reason for Exam: dryheaving feeling unwell Patient Location: E HR:83 bpm ECG Measurements Heart Rate 83 AXIS IA 151 P 43 QRSd 95 QRS 2 QT 373 T 54 QTc 438 Conclusion Sinus rhythm...normal P axis, V-rate 60- 99 sinus rhytm, normal axis, normal intervals, non ischemic
[2022-12-16] MEDS: Albuterol 2.5 MG/3 ML INH SOLN VIAL UPD (09:23)
[2022-12-16 09:30] LABS: Source Nasal/Nares
[2022-12-16 09:30] LABS: Abs Immature Grans 0.02 10^3/uL (0.0-0.06); Absolute Basophil Count 0.04 10^3/uL (0.0-0.2); Absolute Eosinophil Count 0.18 10^3/uL (0.0-0.7); Absolute Lymphocyte Count 1.14 10^3/uL (1.2-3.4); Absolute Monocyte Count 0.49 10^3/uL (0.1-0.8); Absolute Neutrophil Count 5.36 10^3/uL (1.2-6.7); Basophils % 0.6; Eosinophils % 2.5; HCT 30.5 % (36.0-46.0); HGB 9.6 g/dL (11.2-15.7); Immature Grans % 0.3; Lymphocytes % 15.8; MCH 27.2 pg (27.0-33.0); MCHC 31.5 % (32.0-36.0); MCV 86 fL (80-95); MPV 10.2 fL (8.0-11.0); Monocytes % 6.8; Platelet Count 340 10^3/uL (130-400); RBC 3.53 10^6/uL (3.93-5.22); RDW 14.5 % (11.7-14.6); WBC 7.23 10^3/uL (4.4-10.8)
[2022-12-16 09:53] LABS: ALT 14 U/L (14-59); AST 15 U/L (15-37); Albumin 3.1 g/dL (3.4-5.0); Alkaline Phosphatase 91 U/L (46-116); Anion Gap 8.2 mmol/L (3-11); BUN 13 mg/dL (7-18); Bilirubin, Total 0.3 mg/dL (0.2-1.0); CO2 29.8 mmol/L (21.0-32.0); CREATININE 0.7 mg/dL (0.55-1.02); Chloride 107 mmol/L (98-107); Estimated GFR 91.83 (mL/min/1.73m2); Glucose 111 mg/dL (74-106); Magnesium 1.8 mg/dL (1.8-2.4); Potassium 3.2 mmol/L (3.5-5.1); Sodium 145 mmol/L (136-145); Troponin I 56 ng/L (<or=60)
[2022-12-16 10:00] LABS: NT-proBNP 5793 pg/mL (<300)
[2022-12-16 10:01] LABS: TSH (W/Ref FT4) 2.67 uIU/mL (0.36-3.74)
--- NOTE | 2022-12-16 10:05 | DI.CT_ITS ---
Exam(s) CT HEAD CERVICAL SPINE WO EXAM: CT HEAD CERVICAL SPINE WO CLINICAL HISTORY: falls, head injury, left weakness. TECHNIQUE: Imaging Protocol: Axial computed tomography images with coronal and sagittal reformatted images were created and reviewed COMPARISON: No exams were available for comparison FINDINGS: BRAIN: There are no skull fractures nor fluid in the visualized paranasal sinuses. There is no evidence of intracranial hemorrhage, mass effect, or shift of midline structures. There are no extra-axial fluid collections. The ventricles are not enlarged or shifted and there is no blo od within the ventricular system nor within the basal cisterns. CERVICAL SPINE: There are advanced degenerative changes at C1-C2 level but no obvious acute fracture, listhesis, nor offset of the spinal laminar line. There is multilevel disc space narrowing throughout the cervical spine. Multilevel facet arthropathy. There is no significant facet joint malalignment. No significant osseous lesions evident. IMPRESSION: No acute intracranial findings on this noninfused CT scan of the brain. No evidence of cervical spine fracture, malalignment, nor acute compromise of the cervical spinal can al. RADIATION DOSE DELIVERED: Total DLP DATA REPOSITORY: All CT scans at this facility are submitted to the National Radiology Data Registry (NRDR) Dose Index Registry (DIR) with the [employer] (ACR). RADIATION OPTIMIZATION: All CT scans at this facility use at least one of these dose optimization te chniques: automated exposure control; mA and/or kV adjustment per patient size (includes targeted exa ms where dose is matched to clinical indication); or iterative reconstruction.
[2022-12-16] MEDS: Normal Saline Flush 10 ML SYR IJ ×2 (10:09→16:01)
[2022-12-16] MEDS: Normal Saline - Diluent 50 ML VIAL IJ (10:09)
[2022-12-16] MEDS: Omnipaque 350 MG/ML 500 ML BTL-Imaging package 100 ML IJ (10:10)
--- NOTE | 2022-12-16 10:16 | DI.CT_ITS ---
Exam(s) CT CHEST PE ABD PELVIS W EXAM: CT CHEST PE ABD PELVIS W CLINICAL HISTORY: falls, left hip pain, left flank pain. TECHNIQUE: Imaging Protocol: Axial CT angiography was performed with multi-slice acquisition and m ulti-planar and/or 3D reconstructions. CONTRAST MATERIAL: Intravenous: Omnipaque 350 Contrast volume:100 ml Oral: None COMPARISON: CT,NM,TMT NM MPI REST STRESS GRP from 10/24/[address] HEAD CERVICAL SPINE WO from 12/16/2022 FINDINGS: CHEST: PULMONARY ARTERIES: There are no obvious intra-arterial filling defects to suggest the presence of [place] pulmonary emboli. LUNGS: There are moderate size bilateral pleural effusions. Mild ground-glass densities both lung fi elds.. MEDIASTINUM: There is no hilar nor mediastinal adenopathy. CARDIAC: There is cardiomegaly. No pericardial effusion.Caliber thoracic aorta normal. No dissectio n. OSSEOUS: No significant osseous lesions.No fractures.. ABDOMEN: There is no ascites. LIVER: There 2 benign-appearing hypodensities in the superior aspect of the right hepatic lobe. The larger hypodensity measures 1 cm. These are probably benign cysts or hemangiomas. GALLBLADDER/BILIARY: Gallbladder is surgically absent. CBD diameter upper normal. PANCREAS: No evidence of pancreatic mass nor dilatation of the pancreatic duct. SPLEEN: Spleen is not enlarged. There are no intrasplenic lesions. Splenic and portal veins are jose nt. ADRENALS: There are no significant adrenal masses. KIDNEYS:Small sub cm benign cyst left kidney. No calculi nor hydronephrosis. No solid renal masses. ABDOMINAL AORTA: Abdominal aorta is not enlarged. LYMPH NODES: There is no retroperitoneal or para-aortic adenopathy. ABDOMINAL WALL/GI: No evidence of significant anterior abdominal wall hernia. No bowel obstruction. PELVIS: LYMPH NODES: There is no intrapelvic nor inguinal adenopathy. GI: No evidence of appendicitis.Sigmoid diverticuli but no evidence of acute diverticulitis. Abundan t fecal material noted in the rectum. URINARY BLADDER: No calculi nor masses evident REPRODUCTIVE: Uterus surgically absent. No abnormal adnexal masses. OSSEOUS: Degenerative changes noted in both hips. No fractures. No osseous. IMPRESSION: 1. No evidence of obvious acute pulmonary emboli nor pulmonary infarction. 2. Moderate-sized bilateral pleural effusions. 3. Cardiomegaly. No pericardial effusion. Possible CHF 4. Intra-abdominal findings as above but no acute [id number] findings. 5. Evidence of previous cholecystectomy and hysterectomy. No bowel obstruction. RADIATION DOSE DELIVERED: Total DLP DATA REPOSITORY: All CT scans at this facility are submitted to the National Radiology Data Registry (NRDR) Dose Index Registry (DIR) with the [employer] (ACR). RADIATION OPTIMIZATION: All CT scans at this facility use at least one of these dose optimization te chniques: automated exposure control; mA and/or kV adjustment per patient size (includes targeted exa ms where dose is matched to clinical indication); or iterative reconstruction.
[2022-12-16 10:32] LABS: COVID-19 PCR Negative (Negative)
--- NOTE | 2022-12-16 10:34 | ED.GENADUL_ITS ---
Discharge Plan Disposition Patient Disposition: Admit to [facility] Discharge Details Chief Complaint: SOB/SuddenOnset Clinical Impression: Hypokalemia, Anemia, Heart failure, Respiratory failure Admit Date/Time: 12/16/22 11:09 Admit Provider: Fidel Christensen Attending Provider: Fidel Chirstensen Primary Care Provider: Tameka Ware ED Provider: Manju Lawrence Discharge Data Discharge Date/Time-TO BE ENTERED AT DEPARTURE: 12/16/22 13:20 Medical Decision Making 72-year-old female in acute respiratory distress, hypoxia 87%, tachypnea, crackles throughout, no significant peripheral edema maybe 1+, no significant calf swelling or tenderness Speaking in complete sentences, alert and oriented x4, no murmur or rub appreciated Patient secondary to BNP of 5698, CT chest consistent with pulmonary edema, cardiomegaly, and acute respiratory steroid failure was administered 40 of IV Lasix and this diuretic na?ve patient Approximately 850 cc of output past administration with mild improvement in symptoms, still oxygen dependent Will need admission for diuresis and likely repeat echocardiogram Case discussed with Dr. Christensen who is agreeable to admission at this time Troponin negative, blood pressure improved at time of reassessment, on 2 L of oxygen, 93% on room air Mild anemia, 9.6, decreased from 11 in June, denies any bleeding Mild hypokalemia, 3, supplemented with 40 mEq of p.o. potassium HPI General Date/Time Provider Initiated Documentation: 12/16/22 09:11 . HPI Narrative: This 72-year-old female presents with hypertension rheumatoid arthritis, presents with report of shortness of breath which woke patient from sleep in the supine position. She states she cannot catch her breath. She received a neb in the ambulance and feels as though this helped her symptoms. She denies ever feeling like this before. She denies any weight gain, change in medications, chest pain, fever or chills. She states she felt fine yesterday per patient. Denies any calf pain or swelling, remote history of DVT, not currently anticoagulated, denies history of PE. States has had frequent falls secondary to balance issues, currently under the best investigation of her primary care physician, this been going on for a year patient denies acute change, she states she has had some ongoing left-sided lower extremity weakness which is essentially unchanged. She states she is fallen twice this week, once when she was walking and lost her balance fell on her left side and now has left-sided pain, and an additional time when she attempted to stand on a stool to hang a plant from the ceiling. She did she fell back and did hit her head. She has no loss of consciousness. She denies any changes in bowel or bladder. Related Data Home Medications Medication Instructions Recorded Confirmed multivitamin (Once Daily tablet) 1 ea PO DAILY 07/27/12 12/16/22 vitamin B comp with C no.4 150 mg 1 tab PO DAILY 03/03/18 12/16/22 tablet (Super B Complex + C) cholecalciferol (vitamin D3) 50 50 mcg PO DAILY 12/13/20 08/13/22 mcg (2,000 unit) capsule Incontinence pads #150 ea 01/11/21 08/13/22 sennosides 8.6 mg-docusate sodium 1 tab-cap PO DAILY #90 tabs 09/24/21 12/16/22 50 mg tablet (Senna-S) prevagen See Rx Instructions .Route 01/28/22 08/13/22 .COMPLEX #90 ea rimegepant 75 mg disintegrating 75 mg PO ONCE PRN migraine 01/28/22 12/16/22 tablet (Nurtec ODT) headache #30 tabs cetirizine 10 mg capsule (Zyrtec) 10 mg PO DAILY #90 caps 04/18/22 12/16/22 magnesium oxide 400 mg PO DAILY hypokal #90 05/01/22 12/16/22 tab-caps omeprazole 40 mg capsule,delayed 40 mg PO BID #180 caps 07/18/22 12/16/22 release epinephrine 0.3 mg/0.3 mL 0.3 mg (0.3 mL) IM PRN bee sting 08/13/22 12/16/22 injection, auto-injector (EpiPen #2 multiple units 2-Leon) fluticasone propionate 50 1 spray intranasal .COMPLEX #16 mL 08/13/22 12/16/22 mcg/actuation nasal spray,suspension lisinopril 10 mg tablet 10 mg PO BID #180 tabs 08/13/22 12/16/22 diclofenac sodium 1 % topical gel 4 g topical QID acute 08/21/22 12/16/22 musculo-skeletal pain #100 grams acetaminophen 650 mg 650 mg PO .once a day PRN fever 09/19/22 12/16/22 tablet,extended release (Arthritis #90 tabs Pain Relief (acetaminophen) ER) citalopram 10 mg tablet 10 mg PO DAILY #90 tabs 10/09/22 12/16/22 citalopram 20 mg tablet 20 mg PO DAILY #90 tabs 10/09/22 12/16/22 naproxen 500 mg tablet See Rx Instructions .Route 10/09/22 12/16/22 .COMPLEX #60 tabs Lipoedema Pedal Machine #1 ea 11/04/22 11/04/22 cholecalciferol (vitamin D3) 250 250 mcg PO QWEEK #10 caps 11/09/22 11/09/22 mcg (10,000 unit) capsule ibuprofen 800 mg tablet 800 mg PO Q8H PRN fever or pain 11/09/22 12/16/22 #100 tab-caps pregabalin 100 mg capsule 100 mg PO BID #180 caps 11/09/22 12/16/22 Previous Rx's Medication Instructions Recorded Incontinence pads #150 ea 01/11/21 sennosides 8.6 mg-docusate sodium 1 tab-cap PO DAILY #90 tabs 09/24/21 50 mg tablet (Senna-S) prevagen See Rx Instructions .Route 01/28/22 .COMPLEX #90 ea rimegepant 75 mg disintegrating 75 mg PO ONCE PRN migraine 01/28/22 tablet (Nurtec ODT) headache #30 tabs cetirizine 10 mg capsule (Zyrtec) 10 mg PO DAILY #90 caps 04/18/22 magnesium oxide 400 mg PO DAILY hypokal #90 05/01/22 tab-caps omeprazole 40 mg capsule,delayed 40 mg PO BID #180 caps 07/18/22 release epinephrine 0.3 mg/0.3 mL 0.3 mg (0.3 mL) IM PRN bee sting 08/13/22 injection, auto-injector (EpiPen #2 multiple units 2-Leon) fluticasone propionate 50 1 spray intranasal .COMPLEX #16 mL 08/13/22 mcg/actuation nasal spray,suspension lisinopril 10 mg tablet 10 mg PO BID #180 tabs 08/13/22 diclofenac sodium 1 % topical gel 4 g topical QID acute 08/21/22 musculo-skeletal pain #100 grams acetaminophen 650 mg 650 mg PO .once a day PRN fever 09/19/22 tablet,extended release (Arthritis #90 tabs Pain Relief (acetaminophen) ER) citalopram 10 mg tablet 10 mg PO DAILY #90 tabs 10/09/22 citalopram 20 mg tablet 20 mg PO DAILY #90 tabs 10/09/22 naproxen 500 mg tablet See Rx Instructions .Route 10/09/22 .COMPLEX #60 tabs Lipoedema Pedal Machine #1 ea 11/04/22 cholecalciferol (vitamin D3) 250 250 mcg PO QWEEK #10 caps 11/09/22 mcg (10,000 unit) capsule ibuprofen 800 mg tablet 800 mg PO Q8H PRN fever or pain 11/09/22 #100 tab-caps pregabalin 100 mg capsule 100 mg PO BID #180 caps 11/09/22 Allergies Allergy/AdvReac Type Severity Reaction Status Date / Time Penicillins Allergy Severe HOSPITALIZE Verified 11/04/22 12:36 D venom-honey bee Allergy Severe ANAPHYLAXSI Verified 11/04/22 12:36 S oxycodone AdvReac Severe HEART Verified 11/04/22 12:36 ATTACK LIKE SYMPTOMS amitriptyline AdvReac Intermediate WEIGHT Verified 11/04/22 12:36 GAIN ON 50 MG aspirin AdvReac Intermediate GI Verified 11/04/22 12:36 INTOLERANCE bupropion [From Wellbutrin] AdvReac Intermediate depression Verified 11/04/22 12:36 hydrocodone AdvReac Intermediate NAUSEA, Verified 11/04/22 12:36 CONFUSION hydroxychloroquine AdvReac Intermediate blurred Verified 11/04/22 12:36 vision and headache General Stated Complaint: SOB/SuddenOnset SILVERIO: 3 PFSH All Active Problems (Updated 12/17/22 @ 08:29 by MING Salcido) Anemia (Chronic) Respiratory failure (Acute) Hypokalemia (Acute) Heart failure (Acute) Hypertension (Chronic) Elevated BPs, with Hx HTN. Hx Rx per pt rpt? Starting lisinopril. Hypertensive retinopathy (Acute ~02/19/22) early, both Eyes Chest wall muscle strain (Acute) Ejection fraction < 50% (Acute) Ankle edema, bilateral (Acute) new onset Atypical chest pain (Acute) Neuropathy (Chronic) vs fibro? myalgias? Fibromyalgia muscle pain (Acute) Anemia (Chronic) Incontinence in female (Acute) Complicated grief (Acute) Shoulder pain, right (Acute) Acute on chronic pain, injury? Depressive disorder, not elsewhere classified (Chronic 08/04/11) Stress due to illness of family member (Acute) Bro w/ lung CA; Sister with CAD, recent PM/Bypass); Sis w/ ut cancer... 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 Rheumatoid arthritis (Acute 09/20/13) R 2&3 MCP & TMP; Rheum Dr Bautista [facility] [place] (09/2014) Primary osteoarthritis involving multiple joints (Acute 08/04/11) s/p bilateral TKA, following with Ortho (09/09/17) Obesity, Class III, BMI 40-49.9 (morbid obesity) (Acute 08/04/11) Weight goal: 190 Myalgia and myositis, unspecified (Acute 08/04/11) Fibromyalgia Migraine (Acute 12/06/12) SINCE PUBERTY; 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 Surgical removal suggested Hyperlipidemia (Acute 08/04/11) LDL GOAL 130; CV risk 5.1% 05/2016 Hirsutism (Acute 08/04/11) Dr Clyde astudillo Headache (Acute 08/31/12) Dr Fuller 09/2012; chronic; Allison 03/22/13 Hallux abductovalgus with bunions (Acute 10/24/13) bilat Gastroesophageal reflux disease (Acute 08/04/11) + ON BA SWALLOW 11/2011; Omeprazole effective Familial tremor (Acute 09/08/16) similar to her two sisters Degenerative joint disease of cervical spine (Acute 07/06/14) Cervicalgia (Acute 08/04/11) WORK INJURY 2004 shoulder injury Atrophic vaginitis (Acute 12/26/14) Arthritis (Acute 09/12/13) R hand index middle MCP; R foot 2 3 MTP Allergic rhinitis (Acute 12/26/13) year round, sarah goldenrod & milkweed, rx OTC Loratadine Surgical History (Updated 02/28/22 @ 14:59 by Maude Rice RN) Abdominal hysterectomy (07/11/98) Dr Arellano, [facility] Appendectomy (07/11/98) Dr Arellano, along with hysterectomy section (05/06/75) Dr Grant, [facility] Cholecystectomy (02/10/12) Dr Funes Ligation of fallopian tube (11/12/75) Dr Castro, [facility] Replacement of total knee joint (05/25/06) R Knee Dr Ted Spicer R Knee revsion Dr Hernandez [facility] [place] L knee Dr Hernandez [facility] [place] Replacement of total knee joint (07/25/09) R Knee Dr Ted Spicer R Knee revsion Dr Hernandez [facility] [place] L knee Dr Hernandez [facility] [place] Replacement of total knee joint (09/02/11) R Knee Dr Ted Spicer R Knee revsion Dr Hernandez [facility] [place] L knee Dr Hernandez [facility] [place] S/P excision of lipoma (12/2018) [facility] [place]-thigh tumor excision Family History Mother , breast ca at age 47. Tobacco dependence Breast cancer Lung cancer COPD (chronic obstructive pulmonary disease) Father , renal failure at age 62. Tobacco dependence COPD (chronic obstructive pulmonary disease) Atrial fibrillation Renal failure Sister Age: 67 Tobacco dependence Lung cancer COPD (chronic obstructive pulmonary disease) Bladder cancer Sister Age: 69 Tobacco dependence Diabetes Brother Age: 67 Tobacco dependence COPD (chronic obstructive pulmonary disease) Heart disease Paternal Grandmother Diabetes Social History Smoking/Tobacco Use Status: Never Smoking risk assessment performed?: Yes Alcohol Intake: current Alcohol Intake frequency: holidays/special occasions only Drug use: Never Substance use type: does not use Adopted: No Caregiver/Support person: No Foster care: No Household members: none Housing: apartment Number of Children: 1 number of grandchildren: 1 Education Level: master's degree Do you need help understanding health information?: Rarely current occupation: retired Pets and animals: Yes Sexually active: No Do you think of yourself as: straight/heterosexual Current gender identity: female What is your relationship status?: How often do you talk on the phone with friends or family?: three or more times per week How often do you get together with friends or relatives?: three or more times per week Do you belong to any clubs or organized social groups?: yes Panel score (0-1 are the most socially isolated patients): 2 What type of physical activity do you participate in: walking Duration: 30-45 minutes/day Frequency: 3-4 times per week Ellen/Temple: Sikhism Special ellen needs: No Seatbelt use: always Helmet use: Yes Helmet use: never Drive intox or ride w/intox 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 Do you feel safe at home: Yes Do you feel safe in your relationship?: Yes Course Vital Signs Vital signs: Vital Signs Temperature 36.4 C 12/16/22 08:52 Pulse 90 12/16/22 08:52 Respiratory Rate 17 12/16/22 08:52 Blood Pressure 175/101 H 12/16/22 08:52 Pulse Oximetry 97 12/16/22 08:52 Temperature 36.4 C 12/16/22 08:52 Temperature Source Oral 12/16/22 08:52 Pulse 72 12/16/22 09:23 Respiratory Rate 20 12/16/22 09:23 Respiratory Effort Short of Breath 12/16/22 09:12 Respiratory Depth Normal 12/16/22 09:12 Respiratory Pattern Normal 12/16/22 09:12 Blood Pressure 175/101 H 12/16/22 08:52 Blood Pressure Position Supine 12/16/22 08:52 Pulse Oximetry 95 12/16/22 09:23 Oxygen Delivery Method Nasal Cannula 12/16/22 09:23 Oxygen Flow Rate 2 12/16/22 09:23 Lab/Test Results Lab/Test Results: Laboratory Tests Range/Units 12/16/22 12/16/22 12/16/22 09:15 09:15 09:15 WBC (4.4-10.8) 10^3/uL 7.23 RBC (3.93-5.22) 10^6/uL 3.53 L Hgb (11.2-15.7) g/dL 9.6 L Hct (36.0-46.0) % 30.5 L MCV (80-95) fL 86 MCH (27.0-33.0) pg 27.2 MCHC (32.0-36.0) % 31.5 L RDW (11.7-14.6) % 14.5 Plt Count (130-400) 10^3/uL 340 MPV (8.0-11.0) fL 10.2 Immature Gran % 0.3 Neutrophils % 74.0 Lymphocytes % 15.8 Monocytes % 6.8 Eosinophils % 2.5 Basophils % 0.6 Nucleated RBC % (0.0-0.3) % 0.0 Absolute Neutrophils (1.2-6.7) 10^3/uL 5.36 Absolute Lymphocytes (1.2-3.4) 10^3/uL 1.14 L Absolute Monocytes (0.1-0.8) 10^3/uL 0.49 Absolute Eosinophils (0.0-0.7) 10^3/uL 0.18 Absolute Basophils (0.0-0.2) 10^3/uL 0.04 Sodium (136-145) mmol/L 145 Potassium (3.5-5.1) mmol/L 3.2 L Chloride (98-107) mmol/L 107 Carbon Dioxide (21.0-32.0) mmol/L 29.8 Anion Gap (3-11) mmol/L 8.2 BUN (7-18) mg/dL 13 Creatinine (0.55-1.02) mg/dL 0.7 Est GFR (CKD-EPI 2020) (mL/min/1.73m2) 91.83 Glucose (74-106) mg/dL 111 H Calcium (8.5-10.1) mg/dL 9.0 Magnesium (1.8-2.4) mg/dL 1.8 Total Bilirubin (0.2-1.0) mg/dL 0.3 AST (15-37) U/L 15 ALT (14-59) U/L 14 Alkaline Phosphatase (46-116) U/L 91 Troponin I (<or=60) ng/L 56 NT-Pro-B Natriuret Pep (<300) pg/mL 5793 H Total Protein (6.4-8.2) g/dL 8.0 Albumin (3.4-5.0) g/dL 3.1 L TSH (0.36-3.74) uIU/mL COVID-19 Source SARS-CoV-2 (PCR) (Negative) Range/Units 12/16/22 12/16/22 09:15 09:20 WBC (4.4-10.8) 10^3/uL RBC (3.93-5.22) 10^6/uL Hgb (11.2-15.7) g/dL Hct (36.0-46.0) % MCV (80-95) fL MCH (27.0-33.0) pg MCHC (32.0-36.0) % RDW (11.7-14.6) % Plt Count (130-400) 10^3/uL MPV (8.0-11.0) fL Immature Gran % Neutrophils % Lymphocytes % Monocytes % Eosinophils % Basophils % Nucleated RBC % (0.0-0.3) % Absolute Neutrophils (1.2-6.7) 10^3/uL Absolute Lymphocytes (1.2-3.4) 10^3/uL Absolute Monocytes (0.1-0.8) 10^3/uL Absolute Eosinophils (0.0-0.7) 10^3/uL Absolute Basophils (0.0-0.2) 10^3/uL Sodium (136-145) mmol/L Potassium (3.5-5.1) mmol/L Chloride (98-107) mmol/L Carbon Dioxide (21.0-32.0) mmol/L Anion Gap (3-11) mmol/L BUN (7-18) mg/dL Creatinine (0.55-1.02) mg/dL Est GFR (CKD-EPI 2020) (mL/min/1.73m2) Glucose (74-106) mg/dL Calcium (8.5-10.1) mg/dL Magnesium (1.8-2.4) mg/dL Total Bilirubin (0.2-1.0) mg/dL AST (15-37) U/L ALT (14-59) U/L Alkaline Phosphatase (46-116) U/L Troponin I (<or=60) ng/L NT-Pro-B Natriuret Pep (<300) pg/mL Total Protein (6.4-8.2) g/dL Albumin (3.4-5.0) g/dL TSH (0.36-3.74) uIU/mL 2.67 COVID-19 Source Nasal/Nares SARS-CoV-2 (PCR) (Negative) Negative Critical Care Time Critical Care Time Attestation: 45 minutes of critical care time secondary to acute respiratory failure in the setting of CHF, with 2 L of oxygen supplementation required, acute diuresis for volume overload with Lasix and CHF exacerbation, and telemetry monitoring and admission to the hospital
[2022-12-16] MEDS: Furosemide 40 MG/4 ML VIAL IVP ×2 (10:57→16:01)
--- NOTE | 2022-12-16 11:12 | HPE_ITS ---
Date of service: 12/16/22 Time of Service: 11:12 Assessment and Plan Assessment and plan (1) Heart failure: Status: Acute Assessment and plan: continue diuresis with strict I&O, daily weights, update echo trend troponin. wean oxygen as able. last echo September 2021 Conclusion Normal left ventricular wall thickness and chamber size.? Estimated ejection fraction is 60%.? Wall motion is normal Normal right ventricular size and systolic function Both atria are normal in size There is no structural or hemodynamically significant valvular disease Mildly dilated ascending aorta measuring 3.6 cm Estimated right ventricular systolic pressure is 31 mmHg (2) Hypertension: Status: Chronic Assessment and plan: continue lisinopril monitor and adjust as needed (3) Hypokalemia: Status: Acute Assessment and plan: repete and follow discussed with DR Christensen. History of Present Illness History of Present Illness Chief Complaint: shortness of breath Narrative: woke up from sleep with sudden onset of shortness of breath. work up in the ED shows CHF, given 40 mg IV lasix and potassium replacement. will be admitted to hosp services. Review of Systems All systems reviewed & are unremarkable except as noted in HPI and below PFSH All Active Problems (Updated 12/17/22 @ 08:29 by MING Salcido) Anemia (Chronic) Respiratory failure (Acute) Hypokalemia (Acute) Heart failure (Acute) Hypertension (Chronic) Elevated BPs, with Hx HTN. Hx Rx per pt rpt? Starting lisinopril. Hypertensive retinopathy (Acute ~02/19/22) early, both Eyes Chest wall muscle strain (Acute) Ejection fraction < 50% (Acute) Ankle edema, bilateral (Acute) new onset Atypical chest pain (Acute) Neuropathy (Chronic) vs fibro? myalgias? Fibromyalgia muscle pain (Acute) Anemia (Chronic) Incontinence in female (Acute) Complicated grief (Acute) Shoulder pain, right (Acute) Acute on chronic pain, injury? Depressive disorder, not elsewhere classified (Chronic 08/04/11) Stress due to illness of family member (Acute) Bro w/ lung CA; Sister with CAD, recent PM/Bypass); Sis w/ ut cancer... 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 Rheumatoid arthritis (Acute 09/20/13) R 2&3 MCP & TMP; Rheum Dr Batuista [facility] [place] (09/2014) Primary osteoarthritis involving multiple joints (Acute 08/04/11) s/p bilateral TKA, following with Ortho (09/09/17) Obesity, Class III, BMI 40-49.9 (morbid obesity) (Acute 08/04/11) Weight goal: 190 Myalgia and myositis, unspecified (Acute 08/04/11) Fibromyalgia Migraine (Acute 12/06/12) SINCE PUBERTY; ANTONIO-MENSTRUAL UNTIL MENOPAUSE; WORSE SINCE ~05/2011; Topirimate helps, Dr Fuller, Dr Cooper 2012 Please evaluate for BOTOX for worsening migraines Localized adiposity of lower extremity (Acute 10/16/17) C Dr Carlos Veras, Plastic surgery of bilateral legs, fullness surrounding knees. Surgical removal suggested Hyperlipidemia (Acute 08/04/11) LDL GOAL 130; CV risk 5.1% 05/2016 Hirsutism (Acute 08/04/11) Dr Clyde astudillo Headache (Acute 08/31/12) Dr Fuller 09/2012; chronic; Allison 03/22/13 Hallux abductovalgus with bunions (Acute 10/24/13) bilat Gastroesophageal reflux disease (Acute 08/04/11) + ON BA SWALLOW 11/2011; Omeprazole effective Familial tremor (Acute 09/08/16) similar to her two sisters Degenerative joint disease of cervical spine (Acute 07/06/14) Cervicalgia (Acute 08/04/11) WORK INJURY 2004 shoulder injury Atrophic vaginitis (Acute 12/26/14) Arthritis (Acute 09/12/13) R hand index middle MCP; R foot 2 3 MTP Allergic rhinitis (Acute 12/26/13) year round, sarah goldenrod & milkweed, rx OTC Loratadine Surgical History (Updated 02/28/22 @ 14:59 by Maude Rice RN) Abdominal hysterectomy (07/11/98) Dr Arellano, [facility] Appendectomy (07/11/98) Dr Arellano, along with hysterectomy section (05/06/75) Dr Grant, [facility] Cholecystectomy (02/10/12) Dr Funes Ligation of fallopian tube (11/12/75) Dr Castro, [facility] Replacement of total knee joint (05/25/06) R Knee Dr Ted Spicer R Knee revsion Dr Hernandez [facility] L knee Dr Hernandez [facility] Replacement of total knee joint (07/25/09) R Knee Dr Ted Spicer R Knee revsion Dr Hernandez [facility] L knee Dr Hernandez [facility] Replacement of total knee joint (09/02/11) R Knee Dr Ted Spicer R Knee revsion Dr Hernandez [facility] L knee Dr Hernandez [facility] S/P excision of lipoma (12/2018) [facility] [place]-thigh tumor excision Family History Mother , breast ca at age 47. Tobacco dependence Breast cancer Lung cancer COPD (chronic obstructive pulmonary disease) Father , renal failure at age 62. Tobacco dependence COPD (chronic obstructive pulmonary disease) Atrial fibrillation Renal failure Sister Age: 67 Tobacco dependence Lung cancer COPD (chronic obstructive pulmonary disease) Bladder cancer Sister Age: 69 Tobacco dependence Diabetes Brother Age: 67 Tobacco dependence COPD (chronic obstructive pulmonary disease) Heart disease Paternal Grandmother Diabetes Social History Smoking/Tobacco Use Status: Never Smoking risk assessment performed?: Yes Alcohol Intake: current Alcohol Intake frequency: holidays/special occasions only Drug use: Never Substance use type: does not use Adopted: No Caregiver/Support person: No Foster care: No Household members: none Housing: apartment Number of Children: 1 number of grandchildren: 1 Education Level: master's degree Do you need help understanding health information?: Rarely current occupation: retired Pets and animals: Yes Sexually active: No Do you think of yourself as: straight/heterosexual Current gender identity: female What is your relationship status?: How often do you talk on the phone with friends or family?: three or more times per week How often do you get together with friends or relatives?: three or more times per week Do you belong to any clubs or organized social groups?: yes Panel score (0-1 are the most socially isolated patients): 2 What type of physical activity do you participate in: walking Duration: 30-45 minutes/day Frequency: 3-4 times per week Ellen/Zoroastrian: Amish Special ellen needs: No Seatbelt use: always Helmet use: Yes Helmet use: never Drive 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 or 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 w/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 Do you feel safe at home: Yes Do you feel safe in your relationship?: Yes Meds Allergies and Home Medications Allergies Allergy/AdvReac Type Severity Reaction Status Date / Time Penicillins Allergy Severe HOSPITALIZE Verified 11/04/22 12:36 D venom-honey bee Allergy Severe ANAPHYLAXSI Verified 11/04/22 12:36 S oxycodone AdvReac Severe HEART Verified 11/04/22 12:36 ATTACK LIKE SYMPTOMS amitriptyline AdvReac Intermediate WEIGHT Verified 11/04/22 12:36 GAIN ON 50 MG aspirin AdvReac Intermediate GI Verified 11/04/22 12:36 INTOLERANCE bupropion [From Wellbutrin] AdvReac Intermediate depression Verified 11/04/22 12:36 hydrocodone AdvReac Intermediate NAUSEA, Verified 11/04/22 12:36 CONFUSION hydroxychloroquine AdvReac Intermediate blurred Verified 11/04/22 12:36 vision and headache Home Medications Medication Instructions Recorded Confirmed Type multivitamin (Once Daily tablet) 1 ea PO DAILY 07/27/12 12/16/22 History vitamin B comp with C no.4 150 mg 1 tab PO DAILY 03/03/18 12/16/22 History tablet (Super B Complex + C) cholecalciferol (vitamin D3) 50 50 mcg PO DAILY 12/13/20 08/13/22 History mcg (2,000 unit) capsule Incontinence pads #150 ea 01/11/21 08/13/22 Rx sennosides 8.6 mg-docusate sodium 1 tab-cap PO DAILY #90 tabs 09/24/21 12/16/22 Rx 50 mg tablet (Senna-S) prevagen See Rx Instructions .Route 01/28/22 08/13/22 Rx .COMPLEX #90 ea rimegepant 75 mg disintegrating 75 mg PO ONCE PRN migraine 01/28/22 12/16/22 Rx tablet (Nurtec ODT) headache #30 tabs cetirizine 10 mg capsule (Zyrtec) 10 mg PO DAILY #90 caps 04/18/22 12/16/22 Rx magnesium oxide 400 mg PO DAILY hypokal #90 05/01/22 12/16/22 Rx tab-caps omeprazole 40 mg capsule,delayed 40 mg PO BID #180 caps 07/18/22 12/16/22 Rx release epinephrine 0.3 mg/0.3 mL 0.3 mg (0.3 mL) IM PRN bee sting 08/13/22 12/16/22 Rx injection, auto-injector (EpiPen #2 multiple units 2-Leon) fluticasone propionate 50 1 spray intranasal .COMPLEX #16 mL 08/13/22 12/16/22 Rx mcg/actuation nasal spray,suspension lisinopril 10 mg tablet 10 mg PO BID #180 tabs 08/13/22 12/16/22 Rx diclofenac sodium 1 % topical gel 4 g topical QID acute 08/21/22 12/16/22 Rx musculo-skeletal pain #100 grams acetaminophen 650 mg 650 mg PO .once a day PRN fever 09/19/22 12/16/22 Rx tablet,extended release (Arthritis #90 tabs Pain Relief (acetaminophen) ER) citalopram 10 mg tablet 10 mg PO DAILY #90 tabs 10/09/22 12/16/22 Rx citalopram 20 mg tablet 20 mg PO DAILY #90 tabs 10/09/22 12/16/22 Rx naproxen 500 mg tablet See Rx Instructions .Route 10/09/22 12/16/22 Rx .COMPLEX #60 tabs Lipoedema Pedal Machine #1 ea 11/04/22 11/04/22 Rx cholecalciferol (vitamin D3) 250 250 mcg PO QWEEK #10 caps 11/09/22 11/09/22 Rx mcg (10,000 unit) capsule ibuprofen 800 mg tablet 800 mg PO Q8H PRN fever or pain 11/09/22 12/16/22 Rx #100 tab-caps pregabalin 100 mg capsule 100 mg PO BID #180 caps 11/09/22 12/16/22 Rx Exam Const General: cooperative, comfortable and no acute distress Nutritional Appearance: overweight Orientation: alert, awake and oriented x3 HENMT Head: normal to inspection and normocephalic Mouth: oral mucosae normal Neck Neck: full ROM and JVD Chest Chest: normal inspection of the chest Resp Effort & Inspection: no audible wheezes, no cough and tachypneic Auscultation: rales Cardio Rate: regular rate Rhythm: regular rhythm Heart Sounds: murmur GI Inspection: normal to inspection Palpation: soft Skin General skin exam: no rashes or lesions noted Neuro General: patient alert, patient awake and patient oriented x3 Extrem General: normal to inspection Psych Appearance: grossly normal Mental Status: mental status grossly normal Speech and Movement: speech and movement normal Mood: anxious mood Affect: anxious affect Results Labs 12/17/22 05:55 12/17/22 05:55 Labs: Laboratory Results - last 24 hr 12/16/22 12/16/22 12/16/22 09:15 09:15 09:15 WBC 7.23 RBC 3.53 L Hgb 9.6 L Hct 30.5 L MCV 86 MCH 27.2 MCHC 31.5 L RDW 14.5 Plt Count 340 MPV 10.2 Immature Gran % 0.3 Neutrophils % 74.0 Lymphocytes % 15.8 Monocytes % 6.8 Eosinophils % 2.5 Basophils % 0.6 Nucleated RBC % 0.0 Absolute Neutrophils 5.36 Absolute Lymphocytes 1.14 L Absolute Monocytes 0.49 Absolute Eosinophils 0.18 Absolute Basophils 0.04 Sodium 145 Potassium 3.2 L Chloride 107 Carbon Dioxide 29.8 Anion Gap 8.2 BUN 13 Creatinine 0.7 Est GFR (CKD-EPI 2020) 91.83 Glucose 111 H Calcium 9.0 Magnesium 1.8 Total Bilirubin 0.3 AST 15 ALT 14 Alkaline Phosphatase 91 Troponin I 56 NT-Pro-B Natriuret Pep 5793 H Total Protein 8.0 Albumin 3.1 L TSH COVID-19 Source SARS-CoV-2 (PCR) 12/16/22 12/16/22 09:15 09:20 WBC RBC Hgb Hct MCV MCH MCHC RDW Plt Count MPV Immature Gran % Neutrophils % Lymphocytes % Monocytes % Eosinophils % Basophils % Nucleated RBC % Absolute Neutrophils Absolute Lymphocytes Absolute Monocytes Absolute Eosinophils Absolute Basophils Sodium Potassium Chloride Carbon Dioxide Anion Gap BUN Creatinine Est GFR (CKD-EPI 2020) Glucose Calcium Magnesium Total Bilirubin AST ALT Alkaline Phosphatase Troponin I NT-Pro-B Natriuret Pep Total Protein Albumin TSH 2.67 COVID-19 Source Nasal/Nares SARS-CoV-2 (PCR) Negative Last Vital Signs Temp 36.4 C 12/16/22 08:52 Pulse 72 12/16/22 09:23 Resp 20 12/16/22 09:23 BP 175/101 H 12/16/22 08:52 Pulse Ox 95 12/16/22 09:23 Time Spent Time spent with Patient: 40-54 minutes Time was spent: preparing to see the patient(eg.review tests), obtaining and/or reviewing separately otained hiistory, ordering medications,tests, procedures, indepentently interpreting results and counseling the patient
[2022-12-16] MEDS: Potassium Chloride 20 MEQ TABCR 40 MEQ PO (11:15)
--- NOTE | 2022-12-16 15:00 | PT.INIE ---
PT Notes Visit Reasons: Congestive heart failure Inpatient Physical Therapy Evaluation Date: 12/16/2022 Referring Doctor: Domonique Dao PT Orders: PT CONSULT: mobility evaluation Precautions: Fall Risk, standard Patient Profile/Admitting Diagnosis: CHF, Pt. woke this am with SOB and couldn't catch her breath was taken via ambulance to ED. She reports increased frequency of falling that is happening more frequently. She also states she recently fell backward off of a step stool and hit her head 1.5 weeks ago and couldn't get up thus waited for someone to come by that heard her calling, refused transport but thinks she's still sore from that in her head, neck. She has hx of RA, weakness of left UE/LE of unknown etiology. PMHX: []All Active Problems?(Updated 06/14/22 @ 00:01 by JESSIE DOS SANTOS) Hypertension (Chronic) Elevated BPs, with Hx HTN. Hx Rx per pt rpt?? Starting lisinopril.Hypertensive retinopathy (Acute ~02/19/22) early, both EyesChest wall muscle strain (Acute) Ejection fraction < 50% (Acute) Ankle edema, bilateral (Acute) new onsetAtypical chest pain (Acute) Neuropathy (Chronic) vs fibro? 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 190 Myalgia and myositis, unspecified (Acute 08/04/11) Fibromyalgia Migraine (Acute 12/06/12) SINCE PUBERTY; ANTONIO-MENSTRUAL UNTIL MENOPAUSE; WORSE SINCE ~05/2011; Topirimate helps, Dr Fuller, Dr Cooper 2012 Please evaluate for BOTOX for worsening migraines Localized adiposity of lower extremity (Acute 10/16/17) [facility] Dr Carlos Veras, Plastic surgery of bilateral legs, fullness surrounding knees. Surgical removal suggested Hyperlipidemia (Acute 08/04/11) LDL GOAL 130; CV risk 5.1% 05/2016 Hirsutism (Acute 08/04/11) Dr Clyde astudillo Headache (Acute 08/31/12) Dr Fuller 09/2012; chronic; Allison 03/22/13 Hallux abductovalgus with bunions (Acute 10/24/13) bilat Gastroesophageal reflux disease (Acute 08/04/11) + ON BA SWALLOW 11/2011; Omeprazole effective Familial tremor (Acute 09/08/16) similar to her two sisters Degenerative joint disease of cervical spine (Acute 07/06/14) Cervicalgia (Acute 08/04/11) WORK INJURY 2004 shoulder injury Atrophic vaginitis (Acute 12/26/14) Arthritis (Acute 09/12/13) R hand index ? middle MCP; R foot 2 3 MTP Allergic rhinitis (Acute 12/26/13) year round, sarah goldenrod & milkweed, rx OTC Loratadine Surgical History?(Updated 02/28/22 @ 14:59 by Maude Rice RN) Abdominal [facility] (07/11/98) [facility] Arellano, along with hysterectomyCesarean section (05/06/75) Dr Grant[facility] Dr Abdi of fallopian tube (11/12/75) Dr Castro[facility] of [facility] (05/25/06) R Knee Dr Ted Spicer R Knee revsion Dr Hernandez [facility] [place] [place] L knee Dr Hernandez [facility] [place] [place] of [place] (07/25/09) R Knee Dr Ted Spicer R Knee revsion Dr Hernandez [facility] [place] [place] L knee Dr Hernandez [facility] [place] [place] of [place] (09/02/11) R Knee Dr Ted Spicer R Knee revsion Dr Hernandez [facility] [place] [place] L knee Dr Hernandez [facility]/P excision of lipoma (12/2018) [facility] [place] [place]-thigh tumor excision Social History/Home Situation: Lives alone in apartment with neighbors nearby, usually wears call button, has a dog and cat, 13 stairs to bedroom with railing, uses cane at baseline outside and furniture walks Current Functional Limitations: unsteady balance, increased falling Equipment Owned/DME:O2 n/c 1 L, cane, will need RW Subjective: []I have a headache and neck pain, feel better with breathing since being here Objective: [] General Observation: []Pt. with 1 L O2 n/c, sitting in chair Mental Status: A and O x3 Pain: 9/10 ROM: Right Upper Extremity:WFL Left Upper Extremity: 50% limited Right Lower Extremity: WFL Left Lower Extremity: 10-110 Strength: Right Upper Extremity: 4/5 Left Upper Extremity: shoulder elevation 3/5 bicep 4/5, tricep 4/5 Right Lower Extremity: 4/5 Left Lower Extremity: quad 3/5, ham 4/5, hip flex 3/5 reports inc LBP Sensation: dec. sensation both feet, neuropathy Bed Mobility/Transfers: sit to stand chair to RW with v/c for hand placement RW to chair v/c for hand placement RW to toilet v/c for handplacement using single rail toilet to RW indep Gait: Ambulates 2x12' with RW needs v/c for step length, sequencing and RW positioning tending to push far out in front Balance: Static Sitting: good Dynamic Sitting: good Static Standing: fair Dynamic Standing: poor/unable Special Tests: Mobility Limitations Standardized Measure [facility] AM-PAC 6 clicks Basic Mobility Inpatient Short Form: Raw Score: 19 CMS Score: 42% Informed Consent/Education: Patient instructed in purpose of PT consult and plan of care. Assessment: Patient is a 72 year old female referred to physical therapy services with the diagnosis of CHF . Patient presents with clinical signs and symptoms consistent with CHF and recent fall/balance issues, as demonstrated by the following impairment level findings: decreased ROM of left UE and L LE, Poor balance, decreased strength of Left UE and LE, increased fall risk. Impairments are contributing to the following functional limitations: AMPAC score. Patient is assessed as a Low 72262 complexity based on the following: Therapeutic Activity:([id number]) Repeated sit to stand chair to RW x5 Standing with light support at RW marching in place x5 ea leg Ambulate with RW 2x 10' (should be walking longer distances) with 1L n/c O2 Seated leg ext x5, hip flex x5, ankle pumps x5 every 30 min Goals: Goals X1 week 1. Supine-Sit I 2. Sit-Supine I 3. Sit-Stand I 4. Stand-Sit I 5. Bed-Chair I 6. Chair-Bed I 7. Gait Amb with least AD, walker likely but has been using cane at home 8. Stairs I with rail 9. Independent with home exercise program 10. Balance fair dynamic balance Plan of Care/Treatment Plan: 1-2x/day, 7 days/week x 1 week. Plan of care has been reviewed with the EMPLOYMENT PROGRAM REPRESENTATIVE providing the service under Physical Therapy direction. Initiate Physical Therapy intervention for strengthening, bed mobility, transfers, gait, stairs, balance training, use of assistive device. DISCHARGE RECOMMENDATIONS: [] Home with no services [] [x] Home with services PT [] Home with outpatient PT [] [] SNF for continued rehabilitation [] [] [facility] [] [] SNF versus LTC based on ability to participate and progress [] TREATMENT CODE/TIME:[id number]/[id number] 30'
[2022-12-16 15:34] LABS: Troponin I 81 ng/L (<or=60)
[2022-12-16 16:01] LABS: Bilirubin Negative (Negative); Blood Negative (Negative); Clarity Clear (Clear); Glucose Negative (Negative); Ketones Negative (Negative); Leukocyte Esterase Negative (Negative); Nitrite Negative (Negative); Urobilinogen 0.2 mg/dL (Up to 0.2); pH 5.5 (5-8)
[2022-12-16] MEDS: Diclofenac 1% Gel 100 GM TUBE TP ×2 (16:09→20:40)
[2022-12-16] MEDS: Lisinopril 10 MG TAB PO (20:41)
[2022-12-16] MEDS: Omeprazole 20 MG CAPCR 40 MG PO (20:41)
[2022-12-16] MEDS: Pregabalin 100 MG CAP PO (20:42)
[2022-12-16] MEDS: Ibuprofen 800 MG TAB PO (20:46)
[2022-12-16 23:50] LABS: Troponin I 71 ng/L (<or=60)
[2022-12-17] VITALS (7 sets, daily range): BP systolic 117–155; BP diastolic 63–78; PULSE 64–69; RESP 16–18; TEMP 36.5–37.2; O2SAT 90–97
[2022-12-17 07:01] LABS: Absolute Basophil Count 0.03 10^3/uL (0.0-0.2); Absolute Eosinophil Count 0.15 10^3/uL (0.0-0.7); Absolute Lymphocyte Count 1.25 10^3/uL (1.2-3.4); Absolute Monocyte Count 0.44 10^3/uL (0.1-0.8); Absolute Neutrophil Count 2.54 10^3/uL (1.2-6.7); Basophils % 0.7; Eosinophils % 3.4; HGB 8.9 g/dL (11.2-15.7); Lymphocytes % 28.3; MCH 27.1 pg (27.0-33.0); MCHC 31.8 % (32.0-36.0); MCV 85 fL (80-95); MPV 10.6 fL (8.0-11.0); Neutrophils % 57.6; Platelet Count 304 10^3/uL (130-400); RBC 3.28 10^6/uL (3.93-5.22); RDW 14.5 % (11.7-14.6); RDW-SD 44.5 fL; WBC 4.41 10^3/uL (4.4-10.8)
--- NOTE | 2022-12-17 07:15 | RT.EKG_ITS ---
APPROVED REPORT Exam: Resting ECG Reason for Exam: chest pain Patient Location: I HR:63 bpm ECG Measurements Heart Rate 63 AXIS GA 146 P 2 QRSd 87 QRS -14 QT 481 T 19 QTc 493 Conclusion Sinus rhythm...normal P axis, V-rate 50- 99 Probable left atrial enlargement...P >50mS, <-0.10mV V1 Possible inferior infarct, age indeterminate...Q>35mS, T neg, II III aVF Abnormal T, consider ischemia, anterior leads...T <-0.20mV, V2-V4 Baseline wander in lead(s) V1
[2022-12-17 07:27] LABS: Anion Gap 5.6 mmol/L (3-11); BUN 14 mg/dL (7-18); CO2 34.4 mmol/L (21.0-32.0); CREATININE 0.8 mg/dL (0.55-1.02); Chloride 104 mmol/L (98-107); Estimated GFR 78.24 (mL/min/1.73m2); Glucose 92 mg/dL (74-106); Potassium 3.3 mmol/L (3.5-5.1); Sodium 144 mmol/L (136-145)
[2022-12-17] MEDS: Omeprazole 20 MG CAPCR 40 MG PO ×2 (07:33→20:27)
[2022-12-17] MEDS: Vitamins B Comp w/C TAB 1 TAB PO (07:38)
[2022-12-17] MEDS: Cholecalciferol (Vitamin D3) 1,000 UNIT TAB 2000 UNITS PO (07:38)
[2022-12-17] MEDS: Acetaminophen 325 MG TAB 650 MG PO (07:38)
[2022-12-17] MEDS: Multivitamin TAB 1 TAB PO (07:39)
[2022-12-17] MEDS: M 10 MG PO (07:39)
[2022-12-17] MEDS: Pregabalin 100 MG CAP PO ×2 (07:40→20:27)
[2022-12-17] MEDS: Magnesium Oxide 400 MG TAB PO (07:41)
[2022-12-17] MEDS: Furosemide 40 MG/4 ML VIAL IVP ×2 (07:41→15:49)
[2022-12-17] MEDS: Potassium Chloride 20 MEQ TABCR PO ×3 (07:41→15:50)
[2022-12-17] MEDS: Lisinopril 10 MG TAB PO ×2 (07:41→20:29)
[2022-12-17] MEDS: Normal Saline Flush 10 ML SYR IJ ×2 (07:42→15:51)
[2022-12-17] MEDS: Diclofenac 1% Gel 100 GM TUBE TP ×2 (07:42→15:54)
[2022-12-17 08:32] LABS: Troponin I 63 ng/L (<or=60)
[2022-12-17] MEDS: Citalopram 10 MG TAB PO (09:14)
[2022-12-17] MEDS: Citalopram 20 MG TAB PO (09:15)
--- NOTE | 2022-12-17 12:22 | PDOC.CMIN ---
Date of service: 12/17/22 Time of Service: 12:22 Care Management Initial Assmt Initial Assessment REASON FOR HOSPITALIZATION:: CHF PREVIOUS FUNCTIONAL STATUS/SOCIAL/FAMILY SUPPORTS:: Bibi lives at [facility] in [place], [facility]. Her son and grand daughter live locally, and are supportive, as well as her sister and brother. 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 She is retired now, and is independent at baseline. CURRENT FUNCTIONAL STATUS:: Bibi was sitting up in her chair when CM met with her. She stated that she is feeling much better today than when she arrived. She discussed how she feels that she has declined mobility ring in the last year and a half, after she fell outside during the winter in May 2021. She reported that she now has a life line, which her insurance pays for. She stated that she has some trouble getting upstairs to her bedroom. CM discussed options including SNF placement, if recommended. She stated that she has been to SNF before, and does not want to return at this time. She stated that her plan will be to return home. Per report, she will have an echo tomorrow, as it is not available today. CM will continue to follow. ADVANCE DIRECTIVES:: On file, Shahid Julio listed as HCA. Diana Huang listed as alternate HCA. Has patient been provided with info about the portal/API?: Yes Did the patient sign up for the portal?: No CODE STATUS:: Full Code INSURANCE COVERAGE / FINANCIAL ISSUES:: [employer]; [employer] CURRENT HOME/COMMUNITY SERVICES/EQUIPMENT:: No current services or equipment PRIMARY CARE PHYSICIAN:: Tameka Ware POTENTIAL DISCHARGE NEEDS:: Evaluations for further needs, follow up appointments. PATIENT/FAMILY EDUCATION NEEDS:: Review discharge instructions and limitations, discussion of self care needs including ask me three. ANTICIPATED BARRIERS TO DISCHARGE:: None identified. TRANSPORTATION:: Via private vehicle by family/friends. PLAN:: Anticipate Bibi will return home once medically cleared. She will transport via private vehicle and will follow up with her PCP and discharge plan of care. CM will continue to follow. PFSH All Active Problems (Updated 12/17/22 @ 08:29 by MING Salcido) Anemia (Chronic) Respiratory failure (Acute) Hypokalemia (Acute) Heart failure (Acute) Hypertension (Chronic) Elevated BPs, with Hx HTN. Hx Rx per pt rpt? Starting lisinopril. Hypertensive retinopathy (Acute ~02/19/22) early, both Eyes Chest wall muscle strain (Acute) Ejection fraction < 50% (Acute) Ankle edema, bilateral (Acute) new onset Atypical chest pain (Acute) Neuropathy (Chronic) vs fibro? myalgias? Fibromyalgia muscle pain (Acute) Anemia (Chronic) Incontinence in female (Acute) Complicated grief (Acute) Shoulder pain, right (Acute) Acute on chronic pain, injury? Depressive disorder, not elsewhere classified (Chronic 08/04/11) Stress due to illness of family member (Acute) Bro w/ lung CA; Sister with CAD, recent PM/Bypass); Sis w/ ut cancer... Seasonal affective disorder (Acute) Arthritis (Acute 09/12/13) Hallux valgus with bunions (Acute 10/24/13) Headache (Acute 08/31/12) Spondylosis of cervical spine (Acute 07/06/14) Toxic effect of venom (Acute 08/04/11) Sleep disorder (Acute 02/01/13) senior care ambien use Rheumatoid arthritis (Acute 09/20/13) R 2&3 MCP & TMP; Rheum Dr Bautista [facility] (09/2014) Primary osteoarthritis involving multiple joints (Acute 08/04/11) s/p bilateral TKA, following with Ortho (09/09/17) Obesity, Class III, BMI 40-49.9 (morbid obesity) (Acute 08/04/11) Weight goal: 190 Myalgia and myositis, unspecified (Acute 08/04/11) Fibromyalgia Migraine (Acute 12/06/12) SINCE PUBERTY; ANTONIO-MENSTRUAL UNTIL MENOPAUSE; WORSE SINCE ~05/2011; Topirimate helps, Dr Fuller, Dr Cooper 2013 Please evaluate for BOTOX for worsening migraines Localized adiposity of lower extremity (Acute 10/16/17) C Dr Carlos Veras, Plastic surgery of bilateral legs, fullness surrounding knees. Surgical removal suggested Hyperlipidemia (Acute 08/04/11) LDL GOAL 130; CV risk 5.1% 05/2016 Hirsutism (Acute 08/04/11) Dr Clyde astudillo Headache (Acute 08/31/12) Dr Fuller 09/2012; chronic; [place] 03/22/13 Hallux abductovalgus with bunions (Acute 10/24/13) bilat Gastroesophageal reflux disease (Acute 08/04/11) + ON BA SWALLOW 11/2011; Omeprazole effective Familial tremor (Acute 09/08/16) similar to her two sisters Degenerative joint disease of cervical spine (Acute 07/06/14) Cervicalgia (Acute 08/04/11) WORK INJURY 2004 shoulder injury Atrophic vaginitis (Acute 12/26/14) Arthritis (Acute 09/12/13) R hand index middle MCP; R foot 2 3 MTP Allergic rhinitis (Acute 12/26/13) year round, sarah goldenrod & milkweed, rx OTC Loratadine Surgical History (Updated 02/28/22 @ 14:59 by Maude Rice RN) Abdominal hysterectomy (07/11/98) Dr Arellano, [facility] Appendectomy (07/11/98) Dr Arellano, along with hysterectomy section (05/06/75) Dr Grant, [facility] Cholecystectomy (02/10/12) Dr Funes Ligation of fallopian tube (11/12/75) Dr Castro, [facility] Replacement of total knee joint (05/25/06) R Knee Dr Ted Spicer R Knee revsion Dr Hernandez [facility] L knee Dr Hernandez [facility] Replacement of total knee joint (07/25/09) R Knee Dr Ted Spicer R Knee revsion Dr Hernandez [facility] L knee Dr Hernandez [facility] Replacement of total knee joint (09/02/11) R Knee Dr Ted Spicer R Knee revsion Dr Hernandez [facility] L knee Dr Hernandez [facility] S/P excision of lipoma (12/2018) [facility]-thigh tumor excision Family History Mother , breast ca at age 47. Tobacco dependence Breast cancer Lung cancer COPD (chronic obstructive pulmonary disease) Father , renal failure at age 62. Tobacco dependence COPD (chronic obstructive pulmonary disease) Atrial fibrillation Renal failure Sister Age: 67 Tobacco dependence Lung cancer COPD (chronic obstructive pulmonary disease) Bladder cancer Sister Age: 69 Tobacco dependence Diabetes Brother Age: 67 Tobacco dependence COPD (chronic obstructive pulmonary disease) Heart disease Paternal Grandmother Diabetes Social History Smoking/Tobacco Use Status: Never Smoking risk assessment performed?: Yes Alcohol Intake: current Alcohol Intake frequency: holidays/special occasions only Drug use: Never Substance use type: does not use Adopted: No Caregiver/Support person: No Foster care: No Household members: none Housing: apartment Number of Children: 1 number of grandchildren: 1 Education Level: master's degree Do you need help understanding health information?: Rarely current occupation: retired Pets and animals: Yes Sexually active: No Do you think of yourself as: straight/heterosexual Current gender identity: female What is your relationship status?: How often do you talk on the phone with friends or family?: three or more times per week How often do you get together with friends or relatives?: three or more times per week Do you belong to any clubs or organized social groups?: yes Panel score (0-1 are the most socially isolated patients): 2 What type of physical activity do you participate in: walking Duration: 30-45 minutes/day Frequency: 3-4 times per week Ellen/Jew: Anabaptist Special ellen needs: No Seatbelt use: always Helmet use: Yes Helmet use: never Drive intox or ride w/intox carry all driver: No Do you feel safe at home: Yes Do you feel safe in your relationship?: Yes
--- NOTE | 2022-12-17 15:05 | CHAPLAIN ---
Bibi was sitting up in the chair when I visited. She told me she is a believer. She attended Mass and catechism until her father told all the children they were no longer going to the Mandaeism Buddhism. She as rebaptized into the Baptist Buddhism as a teenager, but has not attended scientology lately. Bibi is close to her 19-year old granddaughter who visits her regularly. Her son is also supportive, she said. She was having some discomfort after talking for a while, so we stopped there.
--- NOTE | 2022-12-17 15:41 | NUR.NOTE ---
this rn was called to pt room after she states that she had a sever coughing episode that left her sob. on assessment, oxygen sat was 97% ra, hr 71, rr 20. pt does have hx of anxiety. charge nurse brandee notified.
--- NOTE | 2022-12-17 16:37 | PT.INTREAT ---
Date of service: 12/17/22 Time of Service: 10:22 PT Notes Visit Reasons: Congestive heart failure Inpatient Physical Therapy Treatment Note [facility] Date: 12/17/22 PRECAUTIONS: Fall, standard, activity as tolerated. SUBJECTIVE: Patient supine in bed, agreeable to therapy. OBJECTIVE: PAIN: none reported BED MOBILITY/TRANSFERS Rolling L/R: independent Supine-sit: independent Sit-supine: independent Sit-stand: standby Stand-sit: standby Bed-Chair: CGA Chair-bed: CGA GAIT Assistive Device: FWW Weight bearing: full Assist: CGA Distance: 200 feet Deviation: reduced rafia, required 2x standing rest, reported excessive SOB. SARAH Cronin notified. MANUAL THERAPY: soft tissue techniques applied to shoulders and neck to loosen muscles. Patient then instructed in grade 1 self-mobilizations to 1st rib, sidelying ribcage stretch, seated ribcage stretch. NEURO KAYY: Patient instructed in pursed lip breathing while seated, standing, walking. ASSESSMENT: Patient tolerates therapy well PLAN: Continue global strengthening per plan of care until patient is medically ready for discharge. TREATMENT CODE/TIME: AM: 39022 Manual 30 minutes, 49870 Neuro 13 minutes beginning at 10:22. PM [id number] Gait 29 minutes beginning at 14:24
--- NOTE | 2022-12-17 17:48 | W.PM.PROGNOT ---
Date of Service Date of service: 12/17/22 Time of Service: 17:48 Assessment and Plan Assessment and plan (1) Heart failure: Status: Acute Assessment and plan: now weaned off oxygen continue diuresis with strict I&O, daily weights, update echo tomorrow. trend troponin. wean oxygen as able. last echo September 2021 Conclusion Normal left ventricular wall thickness and chamber size.? Estimated ejection fraction is 60%.? Wall motion is normal Normal right ventricular size and systolic function Both atria are normal in size There is no structural or hemodynamically significant valvular disease Mildly dilated ascending aorta measuring 3.6 cm Estimated right ventricular systolic pressure is 31 mmHg (2) Hypertension: Status: Chronic Assessment and plan: blood pressure stable. continue lisinopril monitor and adjust as needed (3) Hypokalemia: Status: Acute Assessment and plan: continue to replete and follow discussed with DR Christensen. Subjective Subjective Patient reports: no new complaints, feels better, tolerating liquids well, tolerating a regular diet, voiding w/o difficulty and shortness of breath (with exertion, has been weaned off oxygen) Interval history since last seen: diuresing well Exam Const General: cooperative, no acute distress and not ill appearing Orientation: alert, awake and oriented x3 Resp Effort & Inspection: normal respiratory effort, able to speak in complete sentences and no respiratory distress Auscultation: rales bilaterally at the base, no rhonchi and no wheezes Cardio Rate: regular rate Rhythm: regular rhythm Heart Sounds: murmur systolic II/ GI Inspection: normal to inspection Palpation: soft and nontender Skin General skin exam: no rashes or lesions noted Neuro General: patient alert, patient awake, patient oriented x3, moves all extremities and no focal motor deficits Extrem General: normal to inspection and normal exam except as noted Right lower extremity: foot Details: abnormal to inspection Details: other (Blackened skin on plantar surface of distal right toe) Objective Last Vital Signs Temp 37.2 C 12/17/22 14:59 Pulse 65 12/17/22 14:59 Resp 16 12/17/22 07:23 BP 123/78 12/17/22 14:59 Pulse Ox 96 12/17/22 14:59 Laboratory Results - last 24 hr 12/16/22 12/17/22 12/17/22 23:14 05:55 05:55 WBC 4.41 RBC 3.28 L Hgb 8.9 L Hct 28.0 L MCV 85 MCH 27.1 MCHC 31.8 L RDW 14.5 Plt Count 304 MPV 10.6 Immature Gran % 0.0 Neutrophils % 57.6 Lymphocytes % 28.3 Monocytes % 10.0 Eosinophils % 3.4 Basophils % 0.7 Nucleated RBC % 0.0 Absolute Neutrophils 2.54 Absolute Lymphocytes 1.25 Absolute Monocytes 0.44 Absolute Eosinophils 0.15 Absolute Basophils 0.03 Sodium 144 Potassium 3.3 L Chloride 104 Carbon Dioxide 34.4 H Anion Gap 5.6 BUN 14 Creatinine 0.8 Est GFR (CKD-EPI 2020) 78.24 Glucose 92 Calcium 9.0 Troponin I 71 H* 63 H* Add-On Test Request 12/17/22 12/17/22 05:55 17:24 WBC RBC Hgb Hct MCV MCH MCHC RDW Plt Count MPV Immature Gran % Neutrophils % Lymphocytes % Monocytes % Eosinophils % Basophils % Nucleated RBC % Absolute Neutrophils Absolute Lymphocytes Absolute Monocytes Absolute Eosinophils Absolute Basophils Sodium Potassium Chloride Carbon Dioxide Anion Gap BUN Creatinine Est GFR (CKD-EPI 2020) Glucose Calcium Troponin I Cancelled Add-On Test Request Cancelled Time Spent with Patient Time Spent with Patient: 25-34 minutes Time was spent: preparing to see the patient(eg.review tests), ordering medications,tests, procedures and counseling the patient
[2022-12-17] MEDS: Melatonin 3 MG TAB 12 MG PO (20:27)
[2022-12-17] MEDS: Ibuprofen 800 MG TAB PO (20:29)
[2022-12-18 06:54] LABS: Abs Immature Grans 0.02 10^3/uL (0.0-0.06); Absolute Basophil Count 0.05 10^3/uL (0.0-0.2); Absolute Eosinophil Count 0.25 10^3/uL (0.0-0.7); Absolute Lymphocyte Count 1.24 10^3/uL (1.2-3.4); Basophils % 0.8; HGB 9.4 g/dL (11.2-15.7); Immature Grans % 0.3; Lymphocytes % 19.8; MCH 27.6 pg (27.0-33.0); MCHC 32.4 % (32.0-36.0); MCV 85 fL (80-95); MPV 10.6 fL (8.0-11.0); Monocytes % 9.6; Neutrophils % 65.5; Platelet Count 332 10^3/uL (130-400); RBC 3.41 10^6/uL (3.93-5.22); RDW 14.5 % (11.7-14.6); RDW-SD 44.5 fL; WBC 6.26 10^3/uL (4.4-10.8)
[2022-12-18 07:16] LABS: Anion Gap 4.2 mmol/L (3-11); BUN 24 mg/dL (7-18); CO2 34.8 mmol/L (21.0-32.0); Chloride 101 mmol/L (98-107); Estimated GFR 59.86 (mL/min/1.73m2); Glucose 105 mg/dL (74-106); Potassium 3.4 mmol/L (3.5-5.1); Sodium 140 mmol/L (136-145)
[2022-12-18 07:17] VITALS: BP 130/59; PULSE 65; RESP 18; TEMP 36.4; O2SAT 95
[2022-12-18] MEDS: Citalopram 20 MG TAB PO (07:33)
[2022-12-18] MEDS: Potassium Chloride 20 MEQ TABCR PO ×2 (07:33→11:17)
[2022-12-18] MEDS: Sennosides/Docusate Sodium TAB 1 TAB PO (07:33)
[2022-12-18] MEDS: Cholecalciferol (Vitamin D3) 1,000 UNIT TAB 2000 UNITS PO (07:33)
[2022-12-18] MEDS: Vitamins B Comp w/C TAB 1 TAB PO (07:33)
[2022-12-18] MEDS: Pregabalin 100 MG CAP PO (07:34)
[2022-12-18] MEDS: Omeprazole 20 MG CAPCR 40 MG PO (07:34)
[2022-12-18] MEDS: Furosemide 40 MG/4 ML VIAL IVP (07:34)
[2022-12-18] MEDS: Citalopram 10 MG TAB PO (07:34)
[2022-12-18] MEDS: M 10 MG PO (07:34)
[2022-12-18] MEDS: Magnesium Oxide 400 MG TAB PO (07:34)
[2022-12-18] MEDS: Multivitamin TAB 1 TAB PO (07:34)
[2022-12-18] MEDS: Diclofenac 1% Gel 100 GM TUBE TP (07:34)
[2022-12-18] MEDS: Lisinopril 10 MG TAB PO (07:36)
--- NOTE | 2022-12-18 11:08 | DI.US_ITS ---
APPROVED REPORT EXAM: Comprehensive 2D, Doppler, and color-flow Echocardiogram Patient Location: In-Patient Room/Bed: 228 Imagery Intelligence: Adal Louis RDMS, CASSIDYT Indications: CHF, HTN Other Information Study Quality: Adequate. Technically limited study due to body habitus. Conclusion Normal left ventricular wall thickness and chamber size. Ejection fraction is 60%. Wall motion is n ormal. Diastolic function is normal Normal right ventricular size and systolic function Both atria are normal in size There is no structural or hemodynamically significant valvular disease Right ventricular systolic pressure could not be estimated Wall motion Left Ventricle The left ventricle is normal size. The left ventricular systolic function is normal. The left ventric ular ejection fraction is within the normal range. There is normal left ventricular wall thickness. T here is normal LV segmental wall motion. There is no ventricular septal defect visualized. LVEF is 60 %. Right Ventricle The right ventricle is normal size. Right ventricular systolic function is grossly normal. Unable to assess PA pressure. Atria The left atrium size is normal. The right atrium size is normal. The interatrial septum is intact wit h no evidence for an atrial septal defect. Aortic Valve The aortic valve is normal in structure. Aortic valve is trileaflet. There is no aortic valvular sten osis. No aortic regurgitation is present. Mitral Valve Mild mitral annular calcification. No evidence of mitral valve stenosis. Trace mitral regurgitation. Tricuspid Valve The tricuspid valve is normal in structure. There is no tricuspid valve stenosis. Trace tricuspid reg urgitation. Pulmonic Valve The pulmonary valve is normal in structure. There is no pulmonic valvular stenosis. There is no pulmo anish valvular regurgitation. Great Vessels The aortic root is normal in size. Ascending aorta is not well visualized. Aortic arch is normal in c aliber. IVC is normal in size and collapses >50% with inspiration. Pericardium There is no pericardial effusion. 2D Dimensions IVSD d PLAX 0.66 cm F: 0.6-1.0 LV Vol A2C d MOD 132.0 mL LVPW d PLAX 0.68 cm F: 0.6 - 1.0 LV Vol A4C d MOD 110.6 mL LVID d PLAX 3.77 cm F: 3.8 - 5.2 LV EF A4C MOD 58.6 % LVDs 2.40 cm F: 2.2 - 3.5 LV EF A2C MOD 58.7 % Ao Root d 2.79 cm F: 2.7 - 3.3 LV EF Biplane MOD 55.9 % LV EF Teichholz 66.3 % SV 68.81 mL LVEF (Salcedo's) 55.93 % F: 54 - 74 SV Index 35.25 mL/m2 LV Volume 93.03 mL F: 46 - 106 LV Volume Index 47.70 mL/m2 F: 29 - 61 LV Vol Biplane MOD 123.0 mL FS 35.90 % M-Mode TAPSE 2.92 cm (M/F) >1.7 LV Diastology MV E' medial 0.068 (>0.07 m/s) E/A Ratio 0.7 LV E/e MED 10.10 (<14) MV E Vmax 0.69 (0.4-1.3 m/s) MV E' lateral 0.071 (>0.1 m/s) MV A Vmax 1.00 (0.4-1.3 m/s) LV E/e LAT 9.75 (<14) MV E/A Ratio 0.69 MV E/E' medial 10.14 MV E/E' lateral 9.79 Aortic Valve LVOT Area 2.84 cm2 AoV Area Vmax 2.34 cm2 LVOT Vmax 1.38 m/s AoV Area/ BSA (Vmax) 1.20 cm2/m2 LVOT Mean Chaz. 0.87 m/s ADRIANNA Mean Chaz. 2.22 cm2 LVOT Peak Grad 7.6 mmHg ADRIANNA Mean Chaz. Index 1.14 cm2/m2 LVOT Mean Grad 3.6 mmHg LVOT VTI 0.255 m LVOT Diam s 1.90 cm AoV Vmax 1.67 m/s Velocity Ratio 0.83 AoV Mean Chaz. 1.12 m/s AoV Peak Grad 11.2 mmHg LVOT SV 72.47 mL AoV Mean Grad 5.8 mmHg AoV VTI 0.293 m AoV Area VTI 2.48 cm2 AoV Area/ BSA (VTI) 1.27 cm/m2 Mitral Valve MV DT 217 (160-240 msec) MV PHT 63 msec MV Area PHT 3.50 cm2 MV VTI 0.314 m MV Area VTI 2.31 (4.0-6.0 cm2) Pulmonary Valve PV Vmax 1.11 (0.5-1.5 m/s) RVOT Peak Gr. 2.39 mmHg PV Peak Grad 4.9 mmHg RVOT Mean Gr. 1.10 mmHg PV Mean Grad 3.2 mmHg RVOT VTI 0.150 m PV VTI 0.189 m RVOT Vmax 0.77 m/s
--- NOTE | 2022-12-18 13:00 | DSE_ITS ---
Date of service: 12/18/22 Time of Service: 13:00 DS: Diagnosis Discharge Diagnosis (1) Heart failure: Status: Acute (2) Hypertension: Status: Chronic (3) Hypokalemia: Status: Acute Discharge Plan Disposition Patient Disposition: Home Condition: Stable Discharge Details Reason For Visit: CHF Admit Date/Time: 12/16/22 11:09 Admit Provider: Fidel Christensen Attending Provider: Fidel Christensen Primary Care Provider: Tameka Ware Hospital Course Hospital Course: This is a 72-year-old female patient who was awoken during the night with shortness of breath. She had no chest pain. She presented to the emergency department and work-up was most consistent with fluid overload. She was diuresed with good effect. She underwent an echocardiogram which did show normal left ventricular wall size. EF was 60% no wall motion abnormalities diastolic function was normal. Her symptoms were completely resolved. She was back to her baseline with no further shortness of breath. She had no chest pain or pressure serial troponins remained negative EKG with no acute ST segment changes she is to be discharged to home with no new medication changes she was to resume her previous medications and discuss further with primary care provider discharge discussed with Dr. Christensen Home Meds and New Rx's Prescriptions: Continued cholecalciferol (vitamin D3) 50 mcg (2,000 unit) capsule 50 mcg PO DAILY Hold Instructions: Home Medication placed on hold at Doctor's office (DME) Incontinence pads MED See Rx Instructions .Route .MEDSUPPLY Qty: 150 0RF Rx Instructions: As directed sennosides-docusate sodium [Senna-S] 8.6-50 mg tablet 1 tab-cap PO DAILY Qty: 90 3RF prevagen See Rx Instructions .ROUTE .COMPLEX Qty: 90 1RF Rx Instructions: Supplement Trial, as recommended by pharmacist; Supplement Trial Nurtec ODT 75 mg tablet,disintegrating 75 mg PO ONCE PRN (Reason: migraine headache) Qty: 30 1RF Rx Instructions: Continue epinephrine [EpiPen 2-Leon] 0.3 mg/0.3 mL auto-injector 0.3 mg IM PRN Qty: 2 1RF Rx Instructions: for allergic reaction fluticasone propionate 50 mcg/actuation spray,suspension 1 spray intranasal .COMPLEX Qty: 16 1RF Rx Instructions: 1 spray intranasal; lisinopril 10 mg tablet 10 mg PO BID Qty: 180 3RF Rx Instructions: Continue once a day, with BP checks (possible need for afternoon tab if BP fluctuates) Zyrtec 10 mg capsule 10 mg PO DAILY Qty: 90 3RF Rx Instructions: OTC, taking daily now vs just seasonally (DME) Lipoedema Pedal Machine See Rx Instructions .Route .MEDSUPPLY Qty: 1 0RF Rx Instructions: As discussed with [facility] cholecalciferol (vitamin D3) 250 mcg (10,000 unit) capsule 250 mcg PO QWEEK Qty: 10 0RF Rx Instructions: High dose WEEKLY, then return to 1,000 units/daily ibuprofen 800 mg tablet 800 mg PO Q8H MDD 2400mg PRN (Reason: fever or pain) Qty: 100 3RF Rx Instructions: sparingly for arthritic pain WITH FOOD (no longer taking celebrex) pregabalin 100 mg capsule 100 mg PO BID Qty: 180 1RF Rx Instructions: Trial 2/day, add to morning pills; Goal of 150mg BID multivitamin [Once Daily] 1 EACH tablet 1 ea PO DAILY Rx Instructions: every other day. Super B Complex + C 150 mg tablet 1 tab PO DAILY Rx Instructions: every other day magnesium oxide 400 mg magnesium capsule 400 mg PO DAILY Qty: 90 3RF Rx Instructions: Take (1) every evening .. helps with the low potassium, and may help with headache, muscle pains omeprazole 40 mg capsule,delayed release(DR/EC) 40 mg PO BID Qty: 180 3RF Rx Instructions: BID per GI diclofenac sodium 1 % gel 4 g topical QID Qty: 100 2RF Rx Instructions: apply to single foot, @ top of foot @ around ankles acetaminophen [Arthritis Pain Relief (acetam)] 650 mg tablet extended release 650 mg PO .once a day PRN (Reason: fever) Qty: 90 1RF citalopram 10 mg tablet 10 mg PO DAILY Qty: 90 3RF Rx Instructions: Take with 20mg tablet for a total of 30mg daily. 09/24/21 citalopram 20 mg tablet 20 mg PO DAILY Qty: 90 3RF Rx Instructions: Take with 10mg tablet for a total of 30mg daily. 09/24/21 naproxen 500 mg tablet See Rx Instructions .ROUTE .COMPLEX Qty: 60 0RF Dose Instruction: TAKE ONE TABLET BY MOUTH TWICE A DAY NEEDED FOR PAIN ( DO NOT TAKE WITH IBUPROFEN/ ADVIL) Rx Instructions: TAKE ONE TABLET BY MOUTH TWICE A DAY NEEDED FOR PAIN ( DO NOT TAKE WITH IBUPROFEN/ ADVIL) Discharge Instructions Instructions: Heart Failure (DC) Additional Instructions: continue usual medication discuss further outpatient evaluation with your primary care provider echo results: Normal left ventricular wall thickness and chamber size.? Ejection fraction is 60%.? Wall motion is normal.? Diastolic function is normal Referrals: Tameka Ware DO [Primary Care Provider] - Activity:: Activity as Tolerated Equipment/Supplies:: No Equipment Needed Diet:: As Tolerated Discharge Orders Discharge Orders: Discharge Order (Routine); Ordered 12/18/22 Ordered By: Domonique Dao Discharge Data Discharge Date/Time-TO BE ENTERED AT DEPARTURE: 12/18/22 15:48 DS: Summary Time Spent with Patient providing and/or coordinating discharge services: Less than 30 minutes Status at Discharge Functional status at discharge: independent ambulation Overall status at discharge: patient is back to baseline Mental Status: mental status grossly normal Speech and Movement: speech and movement normal Mood: congruent mood Affect: normal affect Exam Const General: cooperative and no acute distress Orientation: alert, awake and oriented x3 Resp Effort & Inspection: normal respiratory effort, able to speak in complete sentences and no respiratory distress Auscultation: rales bilaterally at the base, no rhonchi and no wheezes Cardio Rate: regular rate Rhythm: regular rhythm GI Inspection: normal to inspection Palpation: soft and nontender Skin General skin exam: no rashes or lesions noted Neuro General: patient alert, patient awake, patient oriented x3, moves all extremities and no focal motor deficits Extrem General: normal to inspection Psych Mental Status: mental status grossly normal Speech and Movement: speech and movement normal Mood: congruent mood Affect: normal affect DS: Data Vitals/I&O Vitals and I&O: Vital Signs Temperature 36.4 C L 12/18/22 07:17 Temperature Source Tympanic 12/18/22 07:17 Pulse 65 12/18/22 07:17 Pulse Rhythm Regular 12/18/22 07:43 Respiratory Rate 18 12/18/22 07:17 Respiratory Effort Normal, Non-Labored 12/18/22 07:43 Respiratory Depth Normal 12/18/22 07:43 Respiratory Pattern Normal 12/18/22 07:43 Blood Pressure 130/59 L 12/18/22 07:17 Blood Pressure Position Supine 12/16/22 08:52 Pulse Oximetry 95 12/18/22 07:17 Oxygen Delivery Method Room Air 12/18/22 07:17 Oxygen Flow Rate 0 12/18/22 07:17 Pain Level 5 12/18/22 07:17 Intake & Output 12/17/22 12/18/22 12/18/22 23:59 11:59 23:59 Intake Total 900 / 1300 250 / 250 Output Total 1650 / 3250 1400 / 1400 Balance -750 / -1950 -1150 / -1150 Intake: Oral 900 / 1300 250 / 250 Output: Urine 1650 / 3250 1400 / 1400 Other: Urine Color Yellow Pale Yellow Urine Appearance Clear Clear Urine Odor None Voiding Methods Toilet Toilet Data Completed and Pending Labs on day of discharge: Labs from last 24 hours 12/18/22 12/18/22 12/17/22 06:11 06:11 17:24 WBC 6.26 RBC 3.41 L Hgb 9.4 L Hct 29.0 L MCV 85 MCH 27.6 MCHC 32.4 RDW 14.5 Plt Count 332 MPV 10.6 Immature Gran % 0.3 Neutrophils % 65.5 Lymphocytes % 19.8 Monocytes % 9.6 Eosinophils % 4.0 Basophils % 0.8 Nucleated RBC % 0.0 Absolute Neutrophils 4.10 Absolute Lymphocytes 1.24 Absolute Monocytes 0.60 Absolute Eosinophils 0.25 Absolute Basophils 0.05 Sodium 140 Potassium 3.4 L Chloride 101 Carbon Dioxide 34.8 H Anion Gap 4.2 BUN 24 H Creatinine 1.0 Est GFR (CKD-EPI 2020) 59.86 Glucose 105 Calcium 9.0 Troponin I Add-On Test Request Cancelled 12/17/22 05:55 WBC RBC Hgb Hct MCV MCH MCHC RDW Plt Count MPV Immature Gran % Neutrophils % Lymphocytes % Monocytes % Eosinophils % Basophils % Nucleated RBC % Absolute Neutrophils Absolute Lymphocytes Absolute Monocytes Absolute Eosinophils Absolute Basophils Sodium Potassium Chloride Carbon Dioxide Anion Gap BUN Creatinine Est GFR (CKD-EPI 2020) Glucose Calcium Troponin I Cancelled Add-On Test Request PFSH All Active Problems (Updated 12/17/22 @ 08:29 by MING Salcido) Anemia (Chronic) Respiratory failure (Acute) Hypokalemia (Acute) Heart failure (Acute) Hypertension (Chronic) Elevated BPs, with Hx HTN. Hx Rx per pt rpt? Starting lisinopril. Hypertensive retinopathy (Acute ~02/19/22) early, both Eyes Chest wall muscle strain (Acute) Ejection fraction < 50% (Acute) Ankle edema, bilateral (Acute) new onset Atypical chest pain (Acute) Neuropathy (Chronic) vs fibro? myalgias? Fibromyalgia muscle pain (Acute) Anemia (Chronic) Incontinence in female (Acute) Complicated grief (Acute) Shoulder pain, right (Acute) Acute on chronic pain, injury? Depressive disorder, not elsewhere classified (Chronic 08/04/11) Stress due to illness of family member (Acute) Bro w/ lung CA; Sister with CAD, recent PM/Bypass); Sis w/ ut cancer... Seasonal affective disorder (Acute) Arthritis (Acute 09/12/13) Hallux valgus with bunions (Acute 10/24/13) Headache (Acute 08/31/12) Spondylosis of cervical spine (Acute 07/06/14) Toxic effect of venom (Acute 08/04/11) Sleep disorder (Acute 02/01/13) oysterman ambien use Rheumatoid arthritis (Acute 09/20/13) R 2&3 MCP & TMP; Rheum Dr Bautista [facility] (09/2014) Primary osteoarthritis involving multiple joints (Acute 08/04/11) s/p bilateral TKA, following with Ortho (09/09/17) Obesity, Class III, BMI 40-49.9 (morbid obesity) (Acute 08/04/11) Weight goal: 190 Myalgia and myositis, unspecified (Acute 08/04/11) Fibromyalgia Migraine (Acute 12/06/12) SINCE PUBERTY; ANTONIO-MENSTRUAL UNTIL MENOPAUSE; WORSE SINCE ~05/2011; To pirimate Dr Jonny [place], Dr Cooper 2012 Please evaluate for BOTOX for worsening migraines Localized adiposity of lower extremity (Acute 10/16/17) [facility] [place] Carlos Veras, Plastic surgery of bilateral legs, fullness surrounding knees. Surgical removal suggested Hyperlipidemia (Acute 08/04/11) LDL GOAL 130; CV risk 5.1% 05/2016 Hirsutism (Acute 08/04/11) Dr Clyde astudillo Headache (Acute 08/31/12) Dr Fuller 09/2012; chronic; Allison 03/22/13 Hallux abductovalgus with bunions (Acute 10/24/13) bilat Gastroesophageal reflux disease (Acute 08/04/11) + ON BA SWALLOW 11/2011; Omeprazole effective Familial tremor (Acute 09/08/16) similar to her two sisters Degenerative joint disease of cervical spine (Acute 07/06/14) Cervicalgia (Acute 08/04/11) WORK INJURY 2004 shoulder injury Atrophic vaginitis (Acute 12/26/14) Arthritis (Acute 09/12/13) R hand index middle MCP; R foot 2 3 MTP Allergic rhinitis (Acute 12/26/13) year round, sarah goldenrod & milkweed, rx OTC Loratadine Surgical History (Updated 02/28/22 @ 14:59 by Maude Rice RN) Abdominal hysterectomy (07/11/98) Dr Arellano, [facility] Appendectomy (07/11/98) Dr Arellano, along with hysterectomy section (05/06/75) Dr Grant, [facility] Cholecystectomy (02/10/12) Dr Funes Ligation of fallopian tube (11/12/75) Dr Castro, [facility] Replacement of total knee joint (05/25/06) R Knee Dr Ted Spicer R Knee revsion Dr Hernandez [facility] L knee Dr Hernandez [facility] Replacement of total knee joint (07/25/09) R Knee Dr Ted Spicer R Knee revsion Dr Hernandez [facility] L knee Dr Hernandez [facility] Replacement of total knee joint (09/02/11) R Knee Dr Ted Spicer R Knee revsion Dr Hernandez [facility] L knee Dr Hernandez [facility] S/P excision of lipoma (12/2018) [facility]-thigh tumor excision Family History Mother , breast ca at age 47. Tobacco dependence Breast cancer Lung cancer COPD (chronic obstructive pulmonary disease) Father , renal failure at age 62. Tobacco dependence COPD (chronic obstructive pulmonary disease) Atrial fibrillation Renal failure Sister Age: 67 Tobacco dependence Lung cancer COPD (chronic obstructive pulmonary disease) Bladder cancer Sister Age: 69 Tobacco dependence Diabetes Brother Age: 67 Tobacco dependence COPD (chronic obstructive pulmonary disease) Heart disease Paternal Grandmother Diabetes Social History Smoking/Tobacco Use Status: Never Smoking risk assessment performed?: Yes Alcohol Intake: current Alcohol Intake frequency: holidays/special occasions only Drug use: Never Substance use type: does not use Adopted: No Caregiver/Support person: No Foster care: No Household members: none Housing: apartment Number of Children: 1 number of grandchildren: 1 Education Level: master's degree Do you need help understanding health information?: Rarely current occupation: retired Pets and animals: Yes Sexually active: No Do you think of yourself as: straight/heterosexual Current gender identity: female What is your relationship status?: How often do you talk on the phone with friends or family?: three or more times per week How often do you get together with friends or relatives?: three or more times per week Do you belong to any clubs or organized social groups?: yes Panel score (0-1 are the most socially isolated patients): 2 What type of physical activity do you participate in: walking Duration: 30-45 minutes/day Frequency: 3-4 times per week Ellen/Yazidism: Denominational Special ellen needs: No Seatbelt use: always Helmet use: Yes Helmet use: never Drive intox or ride w/intox delivery driver: No Do you feel safe at home: Yes Do you feel safe in your relationship?: Yes Time Spent with Patient Time Spent with Patient: <45 minutes Time was spent: preparing to see the patient(eg.review tests), ordering medications,tests, procedures and counseling the patient
--- NOTE | 2022-12-18 16:59 | PTTR_ITS ---
Date of service: 12/18/22 Time of Service: 13:35 PT Notes Visit Reasons: Congestive heart failure Inpatient Physical Therapy Treatment Note [facility] Date: 12/18/22 PRECAUTIONS: Fall, standard, activity as tolerated. SUBJECTIVE: Patient seated EOB, agreeable to therapy. This therapist returned after 2 hours, patient seated in recliner, agreeable to therapy, preparing for discharge. OBJECTIVE: PAIN: none reported BED MOBILITY/TRANSFERS Sit-stand: independent Stand-sit: independent Bed-Chair: independent Chair-bed: independent GAIT Assistive Device: FWW Weight bearing: full Assist: SBA Distance: 150 feet Deviation: no LOB, no SOB reported. Issued walker for home, adjusted walker to patient, educated patient on adjustment of walker as well as how to fold and unfold it. THEREX: Created and reviewed HEP with patient including the following exercises. Patient demonstrated good understanding of each exercise. Access Code: [email or web address] URL: [email or web address] Date: 12/18/2022 Prepared by: Mily Ortiz Exercises - First Rib Mobilization with Strap? - 1 x daily - 7 x weekly - 3 sets - 10 reps - Seated Thoracic Self-Mobilization? - 1 x daily - 7 x weekly - 3 sets - 10 reps - Thoracic Sidebending with Towel Roll? - 1 x daily - 7 x weekly - 3 sets - 10 reps - Seated Alternating Side Stretch with Arm Overhead? - 1 x daily - 7 x weekly - 3 sets - 10 reps - Supine Pursed Lip Breathing? - 1 x daily - 7 x weekly - 3 sets - 10 reps - Seated Pursed Lip Breathing? - 1 x daily - 7 x weekly - 3 sets - 10 reps - Walking with Pursed Lip Breathing? - 1 x daily - 7 x weekly - 3 sets - 10 reps ASSESSMENT: Patient tolerates therapy well x2. Would benefit from continued skilled therapy services at home for balance, gait, strength. PLAN: Continue global strengthening per plan of care until patient is medicallly cleared for discharge. Walker issued for home use. TREATMENT CODE/TIME: 41501 Ther Act 31 minutes beginning at 13:35. 61422 Ther Ex 9 minutes beginning as 15:13.
--- NOTE | 2022-12-18 17:11 | NUR.NOTE ---
Nursing Note: Discharge Instructions printed to be mailed to patient. Voicemail left with KARIN - requested they schedule a follow up with pt.
--- NOTE | 2022-12-18 17:28 | PDOC.CMDIS ---
Date of service: 12/18/22 Time of Service: 17:28 LACE Index Scoring Tool Questions: Length of Stay (in days): 2 Was the patient admitted via the E.D.?: Yes Comorbidities: Congestive Heart Failure E.D. Visits: 0 Answers: Total Score: 7 Risk of Readmission: Low Risk Care Management Discharge Plan Reason for Hospitalization: CHF Discharge Plan: Bibi returned home today with no new services. She transported via private vehicle. She will follow up with her PCP and discharge plan of care. Patient/Family Education Needs: Review discharge instructions and limitations, discussion of self care needs including ask me three.
--- NOTE | 2022-12-19 15:10 | NUR.NOTE ---
Accessed chart to determine orders for EKG and to determine whether or not one needs to be cancelled. Nursing Note:
== END 2022-12-18 15:48 | disposition home or self-care (01) | DRG 291 ==
LOC: ER 11:24 → MS 13:29
PROVIDERS: Nurse Practitioner Acute Care; Admitting Provider Family Medicine; Emergency Provider Physician Assistant; PCP Student in an Organized Health Care Education/Training Program; Visit Provider Family Medicine
DX: I11.0 Hypertensive heart disease with heart failure (principal); J96.00 Acute respiratory failure, unspecified whether with hypoxia or hypercapnia; I50.9 Heart failure, unspecified; E87.6 Hypokalemia; D64.9 Anemia, unspecified; M79.7 Fibromyalgia; G62.9 Polyneuropathy, unspecified; F32.A Depression, unspecified; R32 Unspecified urinary incontinence; M15.9 Polyosteoarthritis, unspecified; G43.909 Migraine, unspecified, not intractable, without status migrainosus; E78.5 Hyperlipidemia, unspecified; J30.2 Other seasonal allergic rhinitis; M06.9 Rheumatoid arthritis, unspecified; R29.6 Repeated falls; W08.XXXA Fall from other furniture, initial encounter; Z96.653 Presence of artificial knee joint, bilateral
CPT/HCPCS: 36415; 71275; 74177; 80048; 80053; 87635; 93005; 96374; 97110; 97112; 97116; 97140; 97161; 97530; 99291; 70450; 72125; 81003; 83735; 83880; 84443; 84484; 85025; 93010; 93306; 99223; 99233; 99239; J1940; J7613

== ENCOUNTER 2022-12-22 12:54 | Observation (INO) | payer OTHER, MEDICAID, SELFPAY ==
[2022-12-22] VITALS (9 sets, daily range): BP systolic 110–182; BP diastolic 52–79; PULSE 55–83; RESP 16–22; TEMP 36.6–36.8; O2SAT 93–99
--- NOTE | 2022-12-22 12:45 | RT.EKG_ITS ---
APPROVED REPORT Exam: Resting ECG Reason for Exam: SOB/CP Patient Location: E HR:60 bpm ECG Measurements Heart Rate 60 AXIS NV 148 P 50 QRSd 106 QRS 20 QT 547 T -16 QTc 536 Conclusion Sinus bradycardia...rate< 60 Atrial premature complex...SV complex w/ short R-R interval Abnrm T, consider ischemia, anterolateral lds...T <-0.20mV, I aVL V2-V6 Prolonged QT interval...QTc >500mS
--- NOTE | 2022-12-22 13:15 | DI.RAD_ITS ---
Exam(s) XR PORTABLE CHEST AP EXAM: XR PORTABLE CHEST AP CLINICAL HISTORY: chest pain. TECHNIQUE: 2D digital imaging was performed. COMPARISON: No exams were available for comparison FINDINGS: Single AP portable view. Heart size is upper normal. The mediastinum is not widened. Lungs are clear. No infiltrates nor obvious pleural effusions. IMPRESSION: No acute pulmonary findings on this single AP portable view of the chest. DATA REPOSITORY: RADIATION DOSE DELIVERED:
--- NOTE | 2022-12-22 13:24 | ED.GENADUL_ITS ---
Discharge Plan Disposition Patient Disposition: Admit to [facility] Condition: Stable Discharge Details Chief Complaint: SOB Clinical Impression: Chest pain Primary Care Provider: Tameka Ware ED Provider: Darrell Segal Home Meds and New Rx's Prescriptions: No Action cholecalciferol (vitamin D3) 50 mcg (2,000 unit) capsule 50 mcg PO DAILY Hold Instructions: Home Medication placed on hold at Doctor's office (DME) Incontinence pads MED See Rx Instructions .Route .MEDSUPPLY Qty: 150 0RF Rx Instructions: As directed sennosides-docusate sodium [Senna-S] 8.6-50 mg tablet 1 tab-cap PO DAILY Qty: 90 3RF prevagen See Rx Instructions .ROUTE .COMPLEX Qty: 90 1RF Rx Instructions: Supplement Trial, as recommended by pharmacist; Supplement Trial Nurtec ODT 75 mg tablet,disintegrating 75 mg PO ONCE PRN (Reason: migraine headache) Qty: 30 1RF Rx Instructions: Continue epinephrine [EpiPen 2-Leon] 0.3 mg/0.3 mL auto-injector 0.3 mg IM PRN Qty: 2 1RF Rx Instructions: for allergic reaction fluticasone propionate 50 mcg/actuation spray,suspension 1 spray intranasal .COMPLEX Qty: 16 1RF Rx Instructions: 1 spray intranasal; lisinopril 10 mg tablet 10 mg PO BID Qty: 180 3RF Rx Instructions: Continue once a day, with BP checks (possible need for afternoon tab if BP fluctuates) Zyrtec 10 mg capsule 10 mg PO DAILY Qty: 90 3RF Rx Instructions: OTC, taking daily now vs just seasonally (DME) Lipoedema Pedal Machine See Rx Instructions .Route .MEDSUPPLY Qty: 1 0RF Rx Instructions: As discussed with [facility] cholecalciferol (vitamin D3) 250 mcg (10,000 unit) capsule 250 mcg PO QWEEK Qty: 10 0RF Rx Instructions: High dose WEEKLY, then return to 1,000 units/daily ibuprofen 800 mg tablet 800 mg PO Q8H MDD 2400mg PRN (Reason: fever or pain) Qty: 100 3RF Rx Instructions: sparingly for arthritic pain WITH FOOD (no longer taking celebrex) pregabalin 100 mg capsule 100 mg PO BID Qty: 180 1RF Rx Instructions: Trial 2/day, add to morning pills; Goal of 150mg BID multivitamin [Once Daily] 1 EACH tablet 1 ea PO DAILY Rx Instructions: every other day. Super B Complex + C 150 mg tablet 1 tab PO DAILY Rx Instructions: every other day magnesium oxide 400 mg magnesium capsule 400 mg PO DAILY Qty: 90 3RF Rx Instructions: Take (1) every evening .. helps with the low potassium, and may help with headache, muscle pains omeprazole 40 mg capsule,delayed release(DR/EC) 40 mg PO BID Qty: 180 3RF Rx Instructions: BID per GI diclofenac sodium 1 % gel 4 g topical QID Qty: 100 2RF Rx Instructions: apply to single foot, @ top of foot @ around ankles acetaminophen [Arthritis Pain Relief (acetam)] 650 mg tablet extended release 650 mg PO .once a day PRN (Reason: fever) Qty: 90 1RF citalopram 10 mg tablet 10 mg PO DAILY Qty: 90 3RF Rx Instructions: Take with 20mg tablet for a total of 30mg daily. 09/24/21 citalopram 20 mg tablet 20 mg PO DAILY Qty: 90 3RF Rx Instructions: Take with 10mg tablet for a total of 30mg daily. 09/24/21 naproxen 500 mg tablet See Rx Instructions .ROUTE .COMPLEX Qty: 60 0RF Dose Instruction: TAKE ONE TABLET BY MOUTH TWICE A DAY NEEDED FOR PAIN ( DO NOT TAKE WITH IBUPROFEN/ ADVIL) Rx Instructions: TAKE ONE TABLET BY MOUTH TWICE A DAY NEEDED FOR PAIN ( DO NOT TAKE WITH IBUPROFEN/ ADVIL) Medical Decision Making 72 yo female with hx of htn, gerd, who was recently addmitted for new onste pulmonary edema causing hypoxia and had reassuring echo and diuresed well, who comes in with chest pain on the left anterior chest for a day descrbied as a pressure. Denies fevers, chills, has had some dyspnea as well. She arrives hemodynamically stable, given asa with ems. She has clear lungs, no murmurs, no jvd, no abdominal tenderness, ekg unchanged. Concern for possible nstemi, will obtain cbc,cmp, troponin and treat with nitro. She had a negative CTA when she was admitted without evidence of PE so doubt this and has no tearing back pain so doubt dissection. labs unremarkable, probnp improved from admission, troponin negative, xray unremarkable on my read. She does feel better after nitro, discussed results with her and given her age and states she lives alone doesn't feel comfortable going home which I feel is reasonable, will discuss with hospitalist about admission for serial troponins and possible stress test Differential Diagnosis Differential Diagnosis: nstemi, chest wall pain, pneumonia Medical Records Medical records reviewed: Yes I reviewed the patient's medical records. Imaging Data Radiologic Study: Attestation: I personally reviewed and interpreted this imaging study as follows: Imaging: X-Ray Radiologist's impression: no acute findings Lab Data Lab results reviewed: Yes I reviewed the patient's lab results. ECG Data Attestation: I personally reviewed and interpreted this ECG (s) as follows: Prior ECG tracings: available for review Interpretation: sinus rate of 60 pr 148 no significant changes from prior ekg no stemi HPI General Mode of arrival: EMS . Date/Time Provider Initiated Documentation: 12/22/22 12:56 . Limitations to Documentation: no limitations . Information obtained by: patient . History of Present Illness 72 year old F presents to the emergency department with the chief complaint of chest pain, described as moderate, Patient started experiencing this day(s) (1) and it has been constant. No relieving factors improve symptom(s), No exacerbating factors reported . Patient notes denies cough and fever/chills. Patient did receive the following treatments prior to arrival, Aspirin Related Data Home Medications Medication Instructions Recorded Confirmed multivitamin (Once Daily tablet) 1 ea PO DAILY 07/27/12 12/22/22 vitamin B comp with C no.4 150 mg 1 tab PO DAILY 03/03/18 12/22/22 tablet (Super B Complex + C) cholecalciferol (vitamin D3) 50 50 mcg PO DAILY 12/13/20 12/22/22 mcg (2,000 unit) capsule Incontinence pads #150 ea 01/11/21 08/13/22 sennosides 8.6 mg-docusate sodium 1 tab-cap PO DAILY #90 tabs 09/24/21 12/22/22 50 mg tablet (Senna-S) prevagen See Rx Instructions .Route 01/28/22 12/22/22 .COMPLEX #90 ea rimegepant 75 mg disintegrating 75 mg PO ONCE PRN migraine 01/28/22 12/22/22 tablet (Nurtec ODT) headache #30 tabs cetirizine 10 mg capsule (Zyrtec) 10 mg PO DAILY #90 caps 04/18/22 12/22/22 magnesium oxide 400 mg PO DAILY hypokal #90 05/01/22 12/22/22 tab-caps omeprazole 40 mg capsule,delayed 40 mg PO BID #180 caps 07/18/22 12/22/22 release epinephrine 0.3 mg/0.3 mL 0.3 mg (0.3 mL) IM PRN bee sting 08/13/22 12/22/22 injection, auto-injector (EpiPen #2 multiple units 2-Leon) fluticasone propionate 50 1 spray intranasal .COMPLEX #16 mL 08/13/22 12/22/22 mcg/actuation nasal spray,suspension lisinopril 10 mg tablet 10 mg PO BID #180 tabs 08/13/22 12/22/22 diclofenac sodium 1 % topical gel 4 g topical QID acute 08/21/22 12/22/22 musculo-skeletal pain #100 grams acetaminophen 650 mg 650 mg PO .once a day PRN fever 09/19/22 12/22/22 tablet,extended release (Arthritis #90 tabs Pain Relief (acetaminophen) ER) citalopram 10 mg tablet 10 mg PO DAILY #90 tabs 10/09/22 12/22/22 citalopram 20 mg tablet 20 mg PO DAILY #90 tabs 10/09/22 12/22/22 naproxen 500 mg tablet See Rx Instructions .Route 10/09/22 12/22/22 .COMPLEX #60 tabs Lipoedema Pedal Machine #1 ea 11/04/22 11/04/22 cholecalciferol (vitamin D3) 250 250 mcg PO QWEEK #10 caps 11/09/22 12/22/22 mcg (10,000 unit) capsule ibuprofen 800 mg tablet 800 mg PO Q8H PRN fever or pain 11/09/22 12/22/22 #100 tab-caps pregabalin 100 mg capsule 100 mg PO BID #180 caps 11/09/22 12/22/22 Previous Rx's Medication Instructions Recorded Incontinence pads #150 ea 01/11/21 sennosides 8.6 mg-docusate sodium 1 tab-cap PO DAILY #90 tabs 09/24/21 50 mg tablet (Senna-S) prevagen See Rx Instructions .Route 01/28/22 .COMPLEX #90 ea rimegepant 75 mg disintegrating 75 mg PO ONCE PRN migraine 01/28/22 tablet (Nurtec ODT) headache #30 tabs cetirizine 10 mg capsule (Zyrtec) 10 mg PO DAILY #90 caps 04/18/22 magnesium oxide 400 mg PO DAILY hypokal #90 05/01/22 tab-caps omeprazole 40 mg capsule,delayed 40 mg PO BID #180 caps 07/18/22 release epinephrine 0.3 mg/0.3 mL 0.3 mg (0.3 mL) IM PRN bee sting 08/13/22 injection, auto-injector (EpiPen #2 multiple units 2-Leon) fluticasone propionate 50 1 spray intranasal .COMPLEX #16 mL 08/13/22 mcg/actuation nasal spray,suspension lisinopril 10 mg tablet 10 mg PO BID #180 tabs 08/13/22 diclofenac sodium 1 % topical gel 4 g topical QID acute 08/21/22 musculo-skeletal pain #100 grams acetaminophen 650 mg 650 mg PO .once a day PRN fever 09/19/22 tablet,extended release (Arthritis #90 tabs Pain Relief (acetaminophen) ER) citalopram 10 mg tablet 10 mg PO DAILY #90 tabs 10/09/22 citalopram 20 mg tablet 20 mg PO DAILY #90 tabs 10/09/22 naproxen 500 mg tablet See Rx Instructions .Route 10/09/22 .COMPLEX #60 tabs Lipoedema Pedal Machine #1 ea 11/04/22 cholecalciferol (vitamin D3) 250 250 mcg PO QWEEK #10 caps 11/09/22 mcg (10,000 unit) capsule ibuprofen 800 mg tablet 800 mg PO Q8H PRN fever or pain 11/09/22 #100 tab-caps pregabalin 100 mg capsule 100 mg PO BID #180 caps 11/09/22 Allergies Allergy/AdvReac Type Severity Reaction Status Date / Time Penicillins Allergy Severe HOSPITALIZE Verified 12/22/22 13:01 D venom-honey bee Allergy Severe ANAPHYLAXSI Verified 12/22/22 13:01 S oxycodone AdvReac Severe HEART Verified 12/22/22 13:01 ATTACK LIKE SYMPTOMS amitriptyline AdvReac Intermediate WEIGHT Verified 12/22/22 13:01 GAIN ON 50 MG aspirin AdvReac Intermediate GI Verified 12/22/22 13:01 INTOLERANCE bupropion [From Wellbutrin] AdvReac Intermediate depression Verified 12/22/22 13:01 hydrocodone AdvReac Intermediate NAUSEA, Verified 12/22/22 13:01 CONFUSION hydroxychloroquine AdvReac Intermediate blurred Verified 12/22/22 13:01 vision and headache General Stated Complaint: SOB SILVERIO: 3 Review of Systems All systems reviewed & are unremarkable except as noted in HPI and below Constitutional Constitutional: Denies chills, Denies fever(s) and Denies weakness Eyes Eyes: Denies loss of vision ENT Ears, Nose, Mouth, and Throat: Denies change in voice Cardiovascular Cardiovascular: Reports chest pain Respiratory Respiratory: Denies cough Gastrointestinal Gastrointestinal: Denies abdominal pain, Denies nausea and Denies vomiting Genitourinary Genitourinary: Denies dysuria Musculoskeletal Musculoskeletal: Denies joint swelling Integumentary/Breasts Skin/Breast: Denies rash Neurologic Neurologic: Denies loss of vision and Denies weakness Psychiatric Psychiatric: Denies depression Endocrine Endocrine: Denies cold intolerance and Denies heat intolerance Allergic/Immunologic Allergic/Immunologic: Denies urticaria PFSH All Active Problems (Updated 12/22/22 @ 14:48 by Darrell Segal MD) Anemia (Chronic) Respiratory failure (Acute) Chest pain (Acute) Hypokalemia (Acute) Heart failure (Acute) Hypertension (Chronic) Elevated BPs, with Hx HTN. Hx Rx per pt rpt? Starting lisinopril. Hypertensive retinopathy (Acute ~02/19/22) early, both Eyes Chest wall muscle strain (Acute) Ejection fraction < 50% (Acute) Ankle edema, bilateral (Acute) new onset Atypical chest pain (Acute) Neuropathy (Chronic) vs fibro? myalgias? Fibromyalgia muscle pain (Acute) Anemia (Chronic) Incontinence in female (Acute) Complicated grief (Acute) Shoulder pain, right (Acute) Acute on chronic pain, injury? Depressive disorder, not elsewhere classified (Chronic 08/04/11) Stress due to illness of family member (Acute) Bro w/ lung CA; Sister with CAD, recent PM/Bypass); Sis w/ ut cancer... Seasonal affective disorder (Acute) Arthritis (Acute 09/12/13) Hallux valgus with bunions (Acute 10/24/13) Headache (Acute 08/31/12) Spondylosis of cervical spine (Acute 07/06/14) Toxic effect of venom (Acute 08/04/11) Sleep disorder (Acute 02/01/13) half-way ambien use Rheumatoid arthritis (Acute 09/20/13) R 2&3 MCP & TMP; [place] [facility] [place] Primary osteoarthritis involving multiple joints (Acute 08/04/11) s/p bilateral TKA, following with Ortho (09/09/17) Obesity, Class III, BMI 40-49.9 (morbid obesity) (Acute 08/04/11) Weight goal: 190 Myalgia and myositis, unspecified (Acute 08/04/11) Fibromyalgia Migraine (Acute 12/06/12) SINCE PUBERTY; 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 Surgical removal suggested Hyperlipidemia (Acute 08/04/11) LDL GOAL 130; CV risk 5.1% 05/2016 Hirsutism (Acute 08/04/11) Dr Clyde astudillo Headache (Acute 08/31/12) Dr Fuller 09/2012; chronic; Allison 03/22/13 Hallux abductovalgus with bunions (Acute 10/24/13) bilat Gastroesophageal reflux disease (Acute 08/04/11) + ON BA SWALLOW 11/2011; Omeprazole effective Familial tremor (Acute 09/08/16) similar to her two sisters Degenerative joint disease of cervical spine (Acute 07/06/14) Cervicalgia (Acute 08/04/11) WORK INJURY 2004 shoulder injury Atrophic vaginitis (Acute 12/26/14) Arthritis (Acute 09/12/13) R hand index middle MCP; R foot 2 3 MTP Allergic rhinitis (Acute 12/26/13) year round, sarah goldenrod & milkweed, rx OTC Loratadine Surgical History (Updated 02/28/22 @ 14:59 by Maude Rice RN) Abdominal hysterectomy (07/11/98) Dr Arellano, [facility] Appendectomy (07/11/98) Dr Arellano, along with hysterectomy section (05/06/75) Dr Grant, [facility] Cholecystectomy (02/10/12) Dr Funes Ligation of fallopian tube (11/12/75) Dr Castro, [facility] Replacement of total knee joint (05/25/06) R Knee Dr Ted Spicer R Knee revsion Dr [place] [facility] [place] [facility] [place]placement of total knee joint (07/25/09) R Knee Dr eTd Spicer R Knee revsion Dr Hernandez [facility] [place] [facility] [place]placement of total knee joint (09/02/11) R Knee Dr Ted Spicer R Knee revsion Dr [place] [facility] [place] [facility] [place] excision of lipoma (12/2018[place] [facility] [place] Family History Mother , breast ca at age 47. Tobacco dependence Breast cancer Lung cancer COPD (chronic obstructive pulmonary disease) Father , renal failure at age 62. Tobacco dependence COPD (chronic obstructive pulmonary disease) Atrial fibrillation Renal failure Sister Age: 67 Tobacco dependence Lung cancer COPD (chronic obstructive pulmonary disease) Bladder cancer Sister Age: 69 Tobacco dependence Diabetes Brother Age: 67 Tobacco dependence COPD (chronic obstructive pulmonary disease) Heart disease Paternal Grandmother Diabetes Social History Smoking/Tobacco Use Status: Never Smoking risk assessment performed?: Yes Alcohol Intake: current Alcohol Intake frequency: holidays/special occasions only Drug use: Never Substance use type: does not use Adopted: No Caregiver/Support person: No Foster care: No Household members: none Housing: apartment Number of Children: 1 number of grandchildren: 1 Education Level: master's degree Do you need help understanding health information?: Rarely current occupation: retired Pets and animals: Yes Sexually active: No Do you think of yourself as: straight/heterosexual Current gender identity: female What is your relationship status?: How often do you talk on the phone with friends or family?: three or more times per week How often do you get together with friends or relatives?: three or more times per week Do you belong to any clubs or organized social groups?: yes Panel score (0-1 are the most socially isolated patients): 2 What type of physical activity do you participate in: walking Duration: 30-45 minutes/day Frequency: 3-4 times per week Ellen/Sabianism: Jew Special ellen needs: No Seatbelt use: always Helmet use: Yes Helmet use: never Drive intox or ride w/intox racing car driver: No Do you feel safe at home: Yes Do you feel safe in your relationship?: Yes Exam Const General: no acute distress Orientation: alert HENMT Head: normal to inspection Ears: external ears normal General nose exam: external nose normal Mouth: moist mucous membranes Eyes General: appearance normal, both eyes and all related structures Neck Neck: normal visual inspection Resp Effort & Inspection: normal respiratory effort and able to speak in complete sentences Auscultation: clear to auscultation bilaterally Cardio Jugular venous pressure: no JVD Rate: regular rate Heart Sounds: no murmurs GI Palpation: soft and nontender Skin General skin exam: no rashes or lesions noted Neuro General: patient alert and patient oriented x3 Extrem General: normal to inspection Psych Mental Status: mental status grossly normal Course Vital Signs Vital signs: Vital Signs Temperature 36.8 C 12/22/22 12:58 Pulse 61 12/22/22 12:58 Respiratory Rate 20 12/22/22 12:58 Blood Pressure 161/69 H 12/22/22 12:58 Pulse Oximetry 99 12/22/22 12:58 Temperature 36.8 C 12/22/22 12:58 Pulse 61 12/22/22 12:58 Respiratory Rate 20 12/22/22 12:58 Blood Pressure 161/69 H 12/22/22 12:58 Blood Pressure Position Sitting 12/22/22 12:58 Pulse Oximetry 99 12/22/22 12:58 Oxygen Delivery Method Room Air 12/22/22 12:58 Oxygen Flow Rate 0 12/22/22 12:58 Pain Level 8 12/22/22 12:58
[2022-12-22 13:37] LABS: Abs Immature Grans 0.02 10^3/uL (0.0-0.06); Absolute Basophil Count 0.04 10^3/uL (0.0-0.2); Absolute Eosinophil Count 0.19 10^3/uL (0.0-0.7); Absolute Lymphocyte Count 0.95 10^3/uL (1.2-3.4); Absolute Monocyte Count 0.48 10^3/uL (0.1-0.8); Absolute Neutrophil Count 3.21 10^3/uL (1.2-6.7); Basophils % 0.8; Eosinophils % 3.9; HCT 30.4 % (36.0-46.0); HGB 9.5 g/dL (11.2-15.7); Immature Grans % 0.4; Lymphocytes % 19.4; MCH 26.6 pg (27.0-33.0); MCHC 31.3 % (32.0-36.0); MCV 85 fL (80-95); MPV 10.3 fL (8.0-11.0); Monocytes % 9.8; Neutrophils % 65.7; Platelet Count 327 10^3/uL (130-400); RBC 3.57 10^6/uL (3.93-5.22); RDW 14.3 % (11.7-14.6); WBC 4.89 10^3/uL (4.4-10.8)
[2022-12-22] MEDS: nitroGLYcerin 0.4 MG TAB SL (13:45)
[2022-12-22 14:07] LABS: ALT 11 U/L (14-59); AST 18 U/L (15-37); Albumin 3.1 g/dL (3.4-5.0); Alkaline Phosphatase 96 U/L (46-116); Anion Gap 9.4 mmol/L (3-11); BUN 15 mg/dL (7-18); Bilirubin, Total 0.3 mg/dL (0.2-1.0); CO2 27.6 mmol/L (21.0-32.0); CREATININE 0.8 mg/dL (0.55-1.02); Calcium 9.3 mg/dL (8.5-10.1); Chloride 103 mmol/L (98-107); Estimated GFR 78.24 (mL/min/1.73m2); Glucose 95 mg/dL (74-106); Magnesium 2.1 mg/dL (1.8-2.4); NT-proBNP 2128 pg/mL (<300); Potassium 4.2 mmol/L (3.5-5.1); Sodium 140 mmol/L (136-145); Troponin I < 50 ng/L (<or=60)
[2022-12-22 14:31] LABS: PTT Activated 32.1 sec (21.5-31.9); Prothrombin Time 9.9 sec (9.3-11.0)
[2022-12-22] MEDS: Enoxaparin 40 MG/0.4 ML SYR SC (15:57)
[2022-12-22] MEDS: Normal Saline Flush 10 ML SYR IVP (15:58)
--- NOTE | 2022-12-22 16:04 | NUR.NOTE ---
Nursing Note: EKG assigned in [facility] and facesheet faxed to [facility].
[2022-12-22] MEDS: Acetaminophen 325 MG TAB PO (16:25)
[2022-12-22] MEDS: Diclofenac 1% Gel 100 GM TUBE TP ×2 (16:58→21:21)
--- NOTE | 2022-12-22 17:00 | RT.EKG_ITS ---
APPROVED REPORT Exam: Resting ECG Reason for Exam: chest pain Patient Location: I HR:62 bpm ECG Measurements Heart Rate 62 AXIS NJ 133 P -6 QRSd 106 QRS -6 QT 530 T -61 QTc 539 Conclusion Sinus rhythm...normal P axis, V-rate 50- 99 Abnormal T, consider ischemia, diffuse leads...T <-0.20mV, ant/lat/inf Prolonged QT interval...QTc >500mS
--- NOTE | 2022-12-22 17:07 | W.PM.HP.N ---
Date of service: 12/22/22 Time of Service: 17:07 Assessment and Plan Assessment and plan (1) Chest pain: Status: Acute Assessment and plan: R/o ACS. Monitor on tele. NPO after midnight for a stress test. Given NSAID use and concomittent PPI use, I do wonder if the etiology of chest pain is not esophageal, so we will continue home BID PPI and add carafate. For the musculoskeletal component, will trial lidocaine patches. However, the patient did present with new onset heart failure on her last admission and CP did respond to nitroglycerin, and this could have been an indication of underlying CAD. For MPI. Check COVID-19 PCR. (2) (HFpEF) heart failure with preserved ejection fraction: Status: Acute Assessment and plan: Monitor volume status. Avoid NSADS. (3) Hypertension: Status: Chronic Assessment and plan: Continue lisinopril. (4) Hyperlipidemia: Status: Chronic Assessment and plan: Check Fasting lipid panel (5) Fibromyalgia muscle pain: Status: Chronic Assessment and plan: Continue lyrica, tylenol; I am not prescribing NSAIDs on this admission. Trial prn morphine. (6) QT prolongation: Status: Acute Assessment and plan: Electrolytes ok. On citalopram. Monitor on tele (7) DVT prophylaxis: Status: Acute Assessment and plan: SC enoxaparin (8) Discharge planning issues: Status: Acute Assessment and plan: Full code History of Present Illness History of Present Illness Chief Complaint: Chest pain Narrative: Ms Huang is a 72 year old female with PMHx of hypertension, hyperlipidemia, chronic headaches for which she takes NSAIDS, GERD, who was a patient at [facility] from 12/16/22 until 12/18/22 for new diagnosis of CHFpEF, who had very mildly elevated troponins on this admission, who returned to [facility] ED today c/o episodes of chest pain starting suddenly today while on the phone. The chest pain was traveling from under her breast to her L shoulder and was accompanied by a sensation of her lungs feeling like spiderwebs. Nitroglycerin relieved her pain in the ER. The pain is also reproducible with palpation. Her troponin x 1 was negative and her EKG was non-ischemic. Observation on the hospitalist service for an MPI stress test was requested. Right now the patient continues to endorse some chest pain, but it is entirely reproducible with palpation. She also endorses L neck and shoulder pain. The patient also states that she has been coughing up yellow-green sputum and has been sneezing today. Review of Systems All systems reviewed & are unremarkable except as noted in HPI and below PFSH All Active Problems (Updated 12/22/22 @ 17:21 by Lety Pope MD) QT prolongation (Acute) Discharge planning issues (Acute) DVT prophylaxis (Acute) (HFpEF) heart failure with preserved ejection fraction (Acute) Anemia (Chronic) Respiratory failure (Acute) Chest pain (Acute) Hypokalemia (Acute) Heart failure (Acute) Hypertension (Chronic) Elevated BPs, with Hx HTN. Hx Rx per pt rpt? Starting lisinopril. Hypertensive retinopathy (Acute ~02/19/22) early, both Eyes Chest wall muscle strain (Acute) Ejection fraction < 50% (Acute) Ankle edema, bilateral (Acute) new onset Atypical chest pain (Acute) Neuropathy (Chronic) vs fibro? myalgias? Fibromyalgia muscle pain (Chronic) Anemia (Chronic) Incontinence in female (Acute) Complicated grief (Acute) Shoulder pain, right (Acute) Acute on chronic pain, injury? Depressive disorder, not elsewhere classified (Chronic 08/04/11) Stress due to illness of family member (Acute) Bro w/ lung CA; Sister with CAD, recent PM/Bypass); Sis w/ ut cancer... Seasonal affective disorder (Acute) Arthritis (Acute 09/12/13) Hallux valgus with bunions (Acute 10/24/13) Headache (Acute 08/31/12) Spondylosis of cervical spine (Acute 07/06/14) Toxic effect of venom (Acute 08/04/11) Sleep disorder (Acute 02/01/13) fpc ambien use Rheumatoid arthritis (Acute 09/20/13) R 2&3 MCP & TMP; Rheum Dr Bautista [facility] [place] (09/[place]) Primary osteoarthritis involving multiple joints (Acute 08/04/11) s/p bilateral TKA, following with Ortho (09/09/17) Obesity, Class III, BMI 40-49.9 (morbid obesity) (Acute 08/04/11) Weight goal: 190 Myalgia and myositis, unspecified (Acute 08/04/11) Fibromyalgia Migraine (Acute 12/06/12) SINCE PUBERTY; ANTONIO-MENSTRUAL UNTIL MENOPAUSE; WORSE SINCE ~05/2011; Topirimate helps, Dr Fuller, Dr Cooper 2012 Please evaluate for BOTOX for worsening migraines Localized adiposity of lower extremity (Acute 10/16/17) [facility] [place] Dr Carlos Veras, Plastic surgery of bilateral legs, fullness surrounding knees. Surgical removal suggested Hyperlipidemia (Chronic 08/04/11) LDL GOAL 130; CV risk 5.1% 05/2016 Hirsutism (Acute 08/04/11) Dr Clyde astudillo Headache (Acute 08/31/12) Dr Fuller 09/2012; chronic; [place] 03/22/13 Hallux abductovalgus with bunions (Acute 10/24/13) bilat Gastroesophageal reflux disease (Acute 08/04/11) + ON BA SWALLOW 11/2011; Omeprazole effective Familial tremor (Acute 09/08/16) similar to her two sisters Degenerative joint disease of cervical spine (Acute 07/06/14) Cervicalgia (Acute 08/04/11) WORK INJURY 2004 shoulder injury Atrophic vaginitis (Acute 12/26/14) Arthritis (Acute 09/12/13) R hand index middle MCP; R foot 2 3 MTP Allergic rhinitis (Acute 12/26/13) year round, sarah goldenrod & milkweed, rx OTC Loratadine Surgical History (Updated 02/28/22 @ 14:59 by Maude Rice RN) Abdominal hysterectomy (07/11/98) Dr Arellano, [facility] Appendectomy (07/11/98) Dr Arellano, along with hysterectomy section (05/06/75) Dr Grant, [facility] Cholecystectomy (02/10/12) Dr Funes Ligation of fallopian tube (11/12/75) Dr Castro, [facility] Replacement of total knee joint (05/25/06) R Knee Dr Ted Spicer R Knee revsion Dr Hernandez [facility] [place] L knee Dr Hernandez [facility] [place] Replacement of total knee joint (07/25/09) R Knee Dr Ted Spicer R Knee revsion Dr Hernandez [facility] [place] L knee Dr Hernandez [facility] [place] Replacement of total knee joint (09/02/11) R Knee Dr Ted Spicer R Knee revsion Dr Hernandez [facility] [place] L knee Dr Hernandez [facility] [place] S/P excision of lipoma (12/2018) [facility] [place]thigh tumor excision Family History Mother , breast ca at age 47. Tobacco dependence Breast cancer Lung cancer COPD (chronic obstructive pulmonary disease) Father , renal failure at age 62. Tobacco dependence COPD (chronic obstructive pulmonary disease) Atrial fibrillation Renal failure Sister Age: 67 Tobacco dependence Lung cancer COPD (chronic obstructive pulmonary disease) Bladder cancer Sister Age: 69 Tobacco dependence Diabetes Brother Age: 67 Tobacco dependence COPD (chronic obstructive pulmonary disease) Heart disease Paternal Grandmother Diabetes Social History Smoking/Tobacco Use Status: Never Smoking risk assessment performed?: Yes Alcohol Intake: current Alcohol Intake frequency: holidays/special occasions only Drug use: Never Substance use type: does not use Adopted: No Caregiver/Support person: No Foster care: No Household members: none Housing: house Number of Children: 1 number of grandchildren: 1 Education Level: master's degree Do you need help understanding health information?: Rarely current occupation: retired Pets and animals: Yes Sexually active: No Do you think of yourself as: straight/heterosexual Current gender identity: female What is your relationship status?: How often do you talk on the phone with friends or family?: three or more times per week How often do you get together with friends or relatives?: three or more times per week Do you belong to any clubs or organized social groups?: yes Panel score (0-1 are the most socially isolated patients): 2 What type of physical activity do you participate in: walking Duration: 30-45 minutes/day Frequency: 3-4 times per week Ellen/Latter Day: Yazidism Special ellen needs: No Seatbelt use: always Helmet use: Yes Helmet use: never Drive intox or ride w/intox service parts driver: No Do you feel safe at home: Yes Do you feel safe in your relationship?: Yes Meds Allergies and Home Medications Allergies Allergy/AdvReac Type Severity Reaction Status Date / Time Penicillins Allergy Severe HOSPITALIZE Verified 12/22/22 13:01 D venom-honey bee Allergy Severe ANAPHYLAXSI Verified 12/22/22 13:01 S oxycodone AdvReac Severe HEART Verified 12/22/22 13:01 ATTACK LIKE SYMPTOMS amitriptyline AdvReac Intermediate WEIGHT Verified 12/22/22 13:01 GAIN ON 50 MG aspirin AdvReac Intermediate GI Verified 12/22/22 13:01 INTOLERANCE bupropion [From Wellbutrin] AdvReac Intermediate depression Verified 12/22/22 13:01 hydrocodone AdvReac Intermediate NAUSEA, Verified 12/22/22 13:01 CONFUSION hydroxychloroquine AdvReac Intermediate blurred Verified 12/22/22 13:01 vision and headache Home Medications Medication Instructions Recorded Confirmed Type multivitamin (Once Daily tablet) 1 ea PO DAILY 07/27/12 12/22/22 History vitamin B comp with C no.4 150 mg 1 tab PO DAILY 03/03/18 12/22/22 History tablet (Super B Complex + C) cholecalciferol (vitamin D3) 50 50 mcg PO DAILY 12/13/20 12/22/22 History mcg (2,000 unit) capsule Incontinence pads #150 ea 01/11/21 08/13/22 Rx sennosides 8.6 mg-docusate sodium 1 tab-cap PO DAILY #90 tabs 09/24/21 12/22/22 Rx 50 mg tablet (Senna-S) prevagen See Rx Instructions .Route 01/28/22 12/22/22 Rx .COMPLEX #90 ea rimegepant 75 mg disintegrating 75 mg PO ONCE PRN migraine 01/28/22 12/22/22 Rx tablet (Nurtec ODT) headache #30 tabs cetirizine 10 mg capsule (Zyrtec) 10 mg PO DAILY #90 caps 04/18/22 12/22/22 Rx magnesium oxide 400 mg PO DAILY hypokal #90 05/01/22 12/22/22 Rx tab-caps omeprazole 40 mg capsule,delayed 40 mg PO BID #180 caps 07/18/22 12/22/22 Rx release epinephrine 0.3 mg/0.3 mL 0.3 mg (0.3 mL) IM PRN bee sting 08/13/22 12/22/22 Rx injection, auto-injector (EpiPen #2 multiple units 2-Leon) fluticasone propionate 50 1 spray intranasal .COMPLEX #16 mL 08/13/22 12/22/22 Rx mcg/actuation nasal spray,suspension lisinopril 10 mg tablet 10 mg PO BID #180 tabs 08/13/22 12/22/22 Rx diclofenac sodium 1 % topical gel 4 g topical QID acute 08/21/22 12/22/22 Rx musculo-skeletal pain #100 grams acetaminophen 650 mg 650 mg PO .once a day PRN fever 09/19/22 12/22/22 Rx tablet,extended release (Arthritis #90 tabs Pain Relief (acetaminophen) ER) citalopram 10 mg tablet 10 mg PO DAILY #90 tabs 10/09/22 12/22/22 Rx citalopram 20 mg tablet 20 mg PO DAILY #90 tabs 10/09/22 12/22/22 Rx naproxen 500 mg tablet See Rx Instructions .Route 10/09/22 12/22/22 Rx .COMPLEX #60 tabs Lipoedema Pedal Machine #1 ea 11/04/22 11/04/22 Rx cholecalciferol (vitamin D3) 250 250 mcg PO QWEEK #10 caps 11/09/22 12/22/22 Rx mcg (10,000 unit) capsule ibuprofen 800 mg tablet 800 mg PO Q8H PRN fever or pain 11/09/22 12/22/22 Rx #100 tab-caps pregabalin 100 mg capsule 100 mg PO BID #180 caps 11/09/22 12/22/22 Rx Exam Narrative Exam Narrative: General: Anxious obese female who is quite talkative on RA, speaking in lengthy sentences without evidence of dyspnea/tachypnea, A&Ox3 Neurological: A&Ox3, no focal deficits Psychiatric: Anxious, approrpiate speech pattern/content Skin: Visible skin intact HEENT: Atraumatic, normocephalic, EOMI, dry MM, clear oropharynx, no submandibular or cervicaly lymphadenopathy, no goiter or JVD Cardiovascular: RRR, no m/r/g Lungs: CTAB Gastrointestinal: soft, nontender, nondistended Genitourinary: deferred Extremities: nonpitting edema BLEs, symmetric, no c/c. Results Imaging Additional studies: CXR: No acute pulmonary findings on this single AP portable view of the chest. EKG: NSR, HR 60, poor quality EKG, diffuse ST-T changes, which appear unchanged from prior; prolonged QTc of 536 ms EKG #2: NSR, HR 62, again diffuse ST-T changes, unchanged from prior, QTc of 530 ms. Echo 12/18/22: Normal left ventricular wall thickness and chamber size.? Ejection fraction is 60%.? Wall motion is normal.? Diastolic function is normal Normal right ventricular size and systolic function Both atria are normal in size There is no structural or hemodynamically significant valvular disease Right ventricular systolic pressure could not be estimated Labs 12/22/22 13:22 12/22/22 13:22 Labs: Laboratory Results - last 24 hr 12/22/22 12/22/22 12/22/22 13:22 13:22 13:22 WBC 4.89 RBC 3.57 L Hgb 9.5 L Hct 30.4 L MCV 85 MCH 26.6 L MCHC 31.3 L RDW 14.3 Plt Count 327 MPV 10.3 Immature Gran % 0.4 Neutrophils % 65.7 Lymphocytes % 19.4 Monocytes % 9.8 Eosinophils % 3.9 Basophils % 0.8 Nucleated RBC % 0.0 Absolute Neutrophils 3.21 Absolute Lymphocytes 0.95 L Absolute Monocytes 0.48 Absolute Eosinophils 0.19 Absolute Basophils 0.04 PT INR APTT Sodium 140 Potassium 4.2 Chloride 103 Carbon Dioxide 27.6 Anion Gap 9.4 BUN 15 Creatinine 0.8 Est GFR (CKD-EPI 2020) 78.24 Glucose 95 Calcium 9.3 Magnesium 2.1 Total Bilirubin 0.3 AST 18 ALT 11 L Alkaline Phosphatase 96 Troponin I < 50 NT-Pro-B Natriuret Pep 2128 H Total Protein 8.0 Albumin 3.1 L TSH 2.10 Cancelled 12/22/22 13:22 WBC RBC Hgb Hct MCV MCH MCHC RDW Plt Count MPV Immature Gran % Neutrophils % Lymphocytes % Monocytes % Eosinophils % Basophils % Nucleated RBC % Absolute Neutrophils Absolute Lymphocytes Absolute Monocytes Absolute Eosinophils Absolute Basophils PT 9.9 INR 1.0 APTT 32.1 H Sodium Potassium Chloride Carbon Dioxide Anion Gap BUN Creatinine Est GFR (CKD-EPI 2020) Glucose Calcium Magnesium Total Bilirubin AST ALT Alkaline Phosphatase Troponin I NT-Pro-B Natriuret Pep Total Protein Albumin TSH Last Vital Signs Temp 36.8 C 12/22/22 15:38 Pulse 62 12/22/22 15:38 Resp 16 12/22/22 13:48 BP 169/79 H 12/22/22 15:38 Pulse Ox 98 12/22/22 15:38 Time Spent Time spent with Patient: 55-74 minutes Time was spent: preparing to see the patient(eg.review tests), obtaining and/or reviewing separately otained hiistory, ordering medications,tests, procedures, referring, communicating with other health health care analyst, indepentently interpreting results, counseling the patient and care coordination
[2022-12-22 17:43] LABS: Troponin I < 50 ng/L (<or=60)
[2022-12-22 18:23] LABS: Source Nasal/Nares
[2022-12-22 18:53] LABS: COVID-19 PCR Negative (Negative)
[2022-12-22 19:41] LABS: Procalcitonin < 0.1 ng/mL
[2022-12-22 20:02] LABS: Lab Add On Test DONE
[2022-12-22] MEDS: Lisinopril 10 MG TAB PO (21:23)
[2022-12-22] MEDS: Lidocaine 5% Patch 2 PATCH TP (21:23)
[2022-12-22] MEDS: Omeprazole 20 MG CAPCR 40 MG PO (21:24)
[2022-12-22] MEDS: Sucralfate 1 GM TAB PO (21:24)
[2022-12-22] MEDS: Pregabalin 100 MG CAP PO (21:24)
[2022-12-23] VITALS (10 sets, daily range): BP systolic 131–166; BP diastolic 70–76; PULSE 54–70; RESP 16–19; TEMP 35.9–36.8; O2SAT 98–100
[2022-12-23 07:30] LABS: Abs Immature Grans 0.01 10^3/uL (0.0-0.06); Absolute Basophil Count 0.04 10^3/uL (0.0-0.2); Absolute Eosinophil Count 0.18 10^3/uL (0.0-0.7); Absolute Lymphocyte Count 1.13 10^3/uL (1.2-3.4); Absolute Monocyte Count 0.39 10^3/uL (0.1-0.8); Absolute Neutrophil Count 3.11 10^3/uL (1.2-6.7); Basophils % 0.8; Eosinophils % 3.7; HGB 9.9 g/dL (11.2-15.7); Immature Grans % 0.2; Lymphocytes % 23.3; MCHC 31.9 % (32.0-36.0); MCV 85 fL (80-95); Platelet Count 333 10^3/uL (130-400); RBC 3.66 10^6/uL (3.93-5.22); RDW 14.4 % (11.7-14.6); RDW-SD 44.4 fL; WBC 4.86 10^3/uL (4.4-10.8)
[2022-12-23 07:43] LABS: Anion Gap 5.8 mmol/L (3-11); BUN 14 mg/dL (7-18); CO2 29.2 mmol/L (21.0-32.0); CREATININE 0.8 mg/dL (0.55-1.02); Calcium 9.5 mg/dL (8.5-10.1); Calculated LDL 149 mg/dL (<100); Chloride 104 mmol/L (98-107); Cholesterol 228 mg/dL (<200); Estimated GFR 78.24 (mL/min/1.73m2); Glucose 96 mg/dL (74-106); HDL Cholesterol 53 mg/dL (40-60); Magnesium 2.1 mg/dL (1.8-2.4); Potassium 4.1 mmol/L (3.5-5.1); Sodium 139 mmol/L (136-145); Triglyceride 132 mg/dL (<150); Troponin I < 50 ng/L (<or=60)
--- NOTE | 2022-12-23 08:00 | DI.NM_ITS ---
APPROVED REPORT Exam: Pharmacologic Patient Location: In-Patient Room/Bed: 229 Stress Nurse: Kanika Hewitt RN Ordering Provider:RADHA MATA, Contact Number: [phone] BMI: 33.62 Baseline Rhythm: Sinus Bradycardia Comment: PAC's - diffuse T wave abnormalities/inversions Indications: Chest pain Medical History Medical History: heart failure, HTN, HLD, total knee replacements, fibromyalgia, headaches, GERD, mere ropathy, stress/depression, SAD, arthritis, RA, OA, obesity Cardiac Medications: Magnesium, Omeprazole, Lisinopril, Fluticasone Allergies: Penicillins, bee's, oxycodone, amitriptyline, ASA, Wellbutrin, Hydrocodone, hydroxychloroq uine Cardiac Risk Factors: +family history, HTN, HLD, obesity Previous Cardiac Procedures: None Pretest Chest Pain Characteristics: None Exercise History: Sedentary Physical Disabilities: unsteady gait Lung Sounds: Mostly clear with very fine crackles in bilateral bases Heart Sounds: Regular, s1/s2 Stress Test Details Test: Pharmacologic stress testing performed using 0.4 mg of regadenoson per 5 mL given IV over 10 s econds. Reason for pharmacologic stress test: physical limitation. Nuclear Acquisition: Rest Tc-99m/Stress Tc-99m 1 day Rest Isotope: Tc-99m Sestamibi. Dose: 9.0 Date: 12/23/2022 Injection Time: 11:45 Stress Isotope: Tc-99m Sestamibi. Dose: 30.0 Date: 12/23/2022 Injection Time: 13:46 HR Resting HR Supine: 57 bpm Max Heart Rate (APMHR): 148.620645 bpm Target HR (85% APMHR): 125.240804 bpm Max HR Achieved: 83 bpm % of APMHR: 56.08 Recovery HR: 74 bpm BP Resting BP Supine: 148/62 mmHg Max BP: 162/58 mmHg Recovery BP: 142/58 mmHg ECG Resting ECG: Sinus Bradycardia, diffuse T wave inversions/abnormalities at rest Ectopy: PAC's Stress ECG: Sinus Rhythm, diffuse T wave inversions/abnormalities ST Change: No significant ST segment changes noted Arrhythmia: None Recovery ECG: Sinus Rhythm, diffuse T wave inversions/abnormalities Recovery ST Change: No significant ST segment changes noted Recovery Arrhythmia: None Clinical Stress Symptoms: slightly woozy per patient Rate Pressure Product: 97611 Stress ECG Conclusion 1. Resting electrocardiogram showed diffuse T wave abnormalities 2. Patient underwent testing using regadenoson 3. Peak heart rate achieved was 56% of predicted for age 4. The electrocardiographic portion of the test was nondiagnostic 5. See MPI report Stress Test Summary STAGE HR BP SpO2 Symptoms NOTES Supine 57 148/62 1 min post Lexiscan injection 72 162/58 3 min post Lexiscan injection 78 128/62 6 min post Lexiscan injection 74 142/58 MPI Conclusion Myocardial perfusion is normal. There is no significant ischemia or evidence of prior infarction Ejection fraction is 49%, wall motion is normal Radiologist Interpretation Radiologist agrees with Multiple Resaw Operator's Interpretation. Radiologist Interpretation by: Noemi Velez MD Interpretation Date/Time: 12/23/2022 16:43:44
[2022-12-23] MEDS: Patch Removal 1 EACH TP (08:15)
[2022-12-23] MEDS: Pregabalin 100 MG CAP PO ×2 (08:30→20:57)
[2022-12-23] MEDS: Omeprazole 20 MG CAPCR 40 MG PO ×2 (08:30→20:57)
[2022-12-23] MEDS: Citalopram 20 MG TAB PO (08:30)
[2022-12-23] MEDS: Lisinopril 10 MG TAB PO ×2 (08:30→20:57)
[2022-12-23] MEDS: Cetirizine 10 MG TAB PO (08:31)
[2022-12-23] MEDS: Citalopram 10 MG TAB PO (08:31)
[2022-12-23 08:41] LABS: Hemoglobin A1C 5.8 % (<5.7)
--- NOTE | 2022-12-23 09:20 | PT.INDS ---
PT Notes Visit Reasons: Chest pain Inpatient Physical Therapy Discharge Summary Treatment Dates: 12/16/2022 - 12/18/2022 Referring Doctor: Domonique Dao PT Orders: PT CONSULT: mobility evaluation Precautions: Fall Risk, standard This document serves as a summary of care. No PT services were provided on this date. Patient Profile/Admitting Diagnosis: Patient admitted for management of CHF. She has hx of RA, weakness of left UE/LE of unknown etiology. She participated in skilled PT intervention over the course of 3 days and demonstrated sufficient safety and independence to allow for safe transition home with no new services. Social History/Home Situation: Lives alone in apartment with neighbors nearby, usually wears call button, has a dog and cat, 13 stairs to bedroom with railing, uses cane at baseline outside and furniture walks Current Functional Limitations: unsteady balance, increased falling Equipment Owned/DME:O2 n/c 1 L, cane, will need RW Subjective: none obtained Objective: ROM: Right Upper Extremity:WFL Left Upper Extremity: 50% limited Right Lower Extremity: WFL Left Lower Extremity: 10-110 Strength: Right Upper Extremity: 4/5 Left Upper Extremity: shoulder elevation 3/5 bicep 4/5, tricep 4/5 Right Lower Extremity: 4/5 Left Lower Extremity: quad 3/5, ham 4/5, hip flex 3/5 reports inc LBP Sensation: dec. sensation both feet, neuropathy BED MOBILITY/TRANSFERS? Sit-stand: independent ? Stand-sit: independent ? Bed-Chair: independent ? Chair-bed: independent ? GAIT? Assistive Device: FWW? Weight bearing: full Assist: SBA ? Distance:? 150 feet? Deviation: no LOB, no SOB reported. Balance: Static Sitting: good Dynamic Sitting: good Static Standing: fair Dynamic Standing: fair Informed Consent/Education: Patient instructed in purpose of PT consult and plan of care. Assessment: Patient is a 72 year old female referred to physical therapy services with the diagnosis of CHF . She participated in skilled PT intervention over the course of 3 days and demonstrated sufficient safety and independence to allow for safe transition home with no new services. Goals: Goals X1 week 1. Supine-Sit I (MET) 2. Sit-Supine I(MET) 3. Sit-Stand I(MET) 4. Stand-Sit I (MET) 5. Bed-Chair I(MET) 6. Chair-Bed I(MET) 7. Gait Amb with least AD, walker likely but has been using cane at home(MET) 8. Stairs I with rail(MET) 9. Independent with home exercise program (MET) 10. Balance fair dynamic balance(MET) Plan of Care/Treatment Plan: D/C home with no new services DISCHARGE RECOMMENDATIONS: Home with no services TREATMENT CODE/TIME: none Nataliia Ayers, PT, DPT [facility]
[2022-12-23] MEDS: Regadenoson 0.4 MG/5 ML SYR IVP (14:26)
[2022-12-23] MEDS: Multivitamin TAB 1 TAB PO (16:17)
[2022-12-23] MEDS: Sennosides/Docusate Sodium TAB 1 TAB PO (16:17)
[2022-12-23] MEDS: Sucralfate 1 GM TAB PO ×2 (16:17→20:57)
[2022-12-23] MEDS: Cholecalciferol (Vitamin D3) 1,000 UNIT TAB 2000 UNITS PO (16:18)
[2022-12-23] MEDS: Enoxaparin 40 MG/0.4 ML SYR SC (16:18)
[2022-12-23] MEDS: Vitamins B Comp w/C TAB 1 TAB PO (16:18)
[2022-12-23] MEDS: Diclofenac 1% Gel 100 GM TUBE TP ×2 (16:19→20:56)
--- NOTE | 2022-12-23 16:41 | INITIAL_ITS ---
Date of service: 12/23/22 Time of Service: 16:41 Care Management Initial Assmt Initial Assessment REASON FOR HOSPITALIZATION:: Chest Pain PREVIOUS FUNCTIONAL STATUS/SOCIAL/FAMILY SUPPORTS:: Bibi lives at [facility] in [place], [place]. Her son and grand daughter live locally, and are supportive, as well as her sister and brother. 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 She is retired now, and is independent at baseline. CURRENT FUNCTIONAL STATUS:: Bibi was out of her room having a stress test when CM attempted to meet with her. Awaiting results of stress test to determine her discharge plan. If it is negative, she will likely return home with no new services. CM will continue to follow. ADVANCE DIRECTIVES:: On file, Shahid Julio listed as HCA. Diana Fox listed as alternate HCA. Has patient been provided with info about the portal/API?: Yes Did the patient sign up for the portal?: No CODE STATUS:: Full Code INSURANCE COVERAGE / FINANCIAL ISSUES:: [employer], [facility] CURRENT HOME/COMMUNITY SERVICES/EQUIPMENT:: No current services or equipment. PRIMARY CARE PHYSICIAN:: Tameka Baptiste POTENTIAL DISCHARGE NEEDS:: Evaluations for further needs, follow up appointments. PATIENT/FAMILY EDUCATION NEEDS:: Review discharge instructions and limitations, discussion of self care needs including ask me three. ANTICIPATED BARRIERS TO DISCHARGE:: None identified. TRANSPORTATION:: Via private vehicle by family/friends PLAN:: Anticipate Bibi will return home once medically cleared. She will transport via private vehicle and will follow up with her PCP and discharge plan of care. CM will continue to follow. PFSH All Active Problems (Updated 12/22/22 @ 17:21 by Lety Pope MD) QT prolongation (Acute) Discharge planning issues (Acute) DVT prophylaxis (Acute) (HFpEF) heart failure with preserved ejection fraction (Acute) Anemia (Chronic) Respiratory failure (Acute) Chest pain (Acute) Hypokalemia (Acute) Heart failure (Acute) Hypertension (Chronic) Elevated BPs, with Hx HTN. Hx Rx per pt rpt? Starting lisinopril. Hypertensive retinopathy (Acute ~02/19/22) early, both Eyes Chest wall muscle strain (Acute) Ejection fraction < 50% (Acute) Ankle edema, bilateral (Acute) new onset Atypical chest pain (Acute) Neuropathy (Chronic) vs fibro? myalgias? Fibromyalgia muscle pain (Chronic) Anemia (Chronic) Incontinence in female (Acute) Complicated grief (Acute) Shoulder pain, right (Acute) Acute on chronic pain, injury? Depressive disorder, not elsewhere classified (Chronic 08/04/11) Stress due to illness of family member (Acute) Bro w/ lung CA; Sister with CAD, recent PM/Bypass); Sis w/ ut cancer... 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 Rheumatoid arthritis (Acute 09/20/13) R 2&3 MCP & TMP; Rheum Dr Bautista [facility] [place] (09/2014) Primary osteoarthritis involving multiple joints (Acute 08/04/11) s/p bilateral TKA, following with Ortho (09/09/17) Obesity, Class III, BMI 40-49.9 (morbid obesity) (Acute 08/04/11) Weight goal: 190 Myalgia and myositis, unspecified (Acute 08/04/11) Fibromyalgia Migraine (Acute 12/06/12) SINCE PUBERTY; ANTONIO-MENSTRUAL UNTIL MENOPAUSE; WORSE SINCE ~05/2011; Topirimate helps, Dr Fuller, Dr Cooper 2012 Please evaluate for BOTOX for worsening migraines Localized adiposity of lower extremity (Acute 10/16/17) [facility] [place] Carlos Veras, Plastic surgery of bilateral legs, fullness surrounding knees. Surgical removal suggested Hyperlipidemia (Chronic 08/04/11) LDL GOAL 130; CV risk 5.1% 05/2016 Hirsutism (Acute 08/04/11) Dr Clyde astudillo Headache (Acute 08/31/12) Dr Fuller 09/2012; chronic; Allison 03/22/13 Hallux abductovalgus with bunions (Acute 10/24/13) bilat Gastroesophageal reflux disease (Acute 08/04/11) + ON BA SWALLOW 11/2011; Omeprazole effective Familial tremor (Acute 09/08/16) similar to her two sisters Degenerative joint disease of cervical spine (Acute 07/06/14) Cervicalgia (Acute 08/04/11) WORK INJURY 2004 shoulder injury Atrophic vaginitis (Acute 12/26/14) Arthritis (Acute 09/12/13) R hand index middle MCP; R foot 2 3 MTP Allergic rhinitis (Acute 12/26/13) year round, sarah goldenrod & milkweed, rx OTC Loratadine Surgical History (Updated 02/28/22 @ 14:59 by Maude Rice RN) Abdominal hysterectomy (07/11/98) Dr Arellano, [facility] Appendectomy (07/11/98) Dr Arellano, along with hysterectomy section (05/06/75) Dr Grant, [facility] Cholecystectomy (02/10/12) Dr Funes Ligation of fallopian tube (11/12/75) Dr Castro, [facility] Replacement of total knee joint (05/25/06) R Knee Dr Ted Spicer R Knee revsion Dr Hernandez [facility] [place] [facility] L knee Dr Hernandez [facility] [place] [facility] Replacement of total knee joint (07/25/09) R Knee Dr Ted Spicer R Knee revsion Dr Hernandez [facility] [place] [facility] L knee Dr Hernandez [facility] [place] [facility] Replacement of total knee joint (09/02/11) R Knee Dr Ted Spicer R Knee revsion Dr Hernandez [facility] [place] [facility] L knee Dr Hernandez [facility] [place] [facility] S/P excision of lipoma (12/2018) [facility] [place]-thigh tumor excision Family History Mother , breast ca at age 47. Tobacco dependence Breast cancer Lung cancer COPD (chronic obstructive pulmonary disease) Father , renal failure at age 62. Tobacco dependence COPD (chronic obstructive pulmonary disease) Atrial fibrillation Renal failure Sister Age: 67 Tobacco dependence Lung cancer COPD (chronic obstructive pulmonary disease) Bladder cancer Sister Age: 69 Tobacco dependence Diabetes Brother Age: 67 Tobacco dependence COPD (chronic obstructive pulmonary disease) Heart disease Paternal Grandmother Diabetes Social History Smoking/Tobacco Use Status: Never Smoking risk assessment performed?: Yes Alcohol Intake: current Alcohol Intake frequency: holidays/special occasions only Drug use: Never Substance use type: does not use Adopted: No Caregiver/Support person: No Foster care: No Household members: none Housing: house Number of Children: 1 number of grandchildren: 1 Education Level: master's degree Do you need help understanding health information?: Rarely current occupation: retired Pets and animals: Yes Sexually active: No Do you think of yourself as: straight/heterosexual Current gender identity: female What is your relationship status?: How often do you talk on the phone with friends or family?: three or more times per week How often do you get together with friends or relatives?: three or more times per week Do you belong to any clubs or organized social groups?: yes Panel score (0-1 are the most socially isolated patients): 2 What type of physical activity do you participate in: walking Duration: 30-45 minutes/day Frequency: 3-4 times per week Ellen/Lutheran: Jainism Special ellen needs: No Seatbelt use: always Helmet use: Yes Helmet use: never Drive intox or ride w/intox transit bus driver: No Do you feel safe at home: Yes Do you feel safe in your relationship?: Yes Readmission Within the Past 30 Days Yes or No: Yes Date of First Admission Date of 1st Admission: 12/17/22 Date of this Admission Date of Admission: 12/22/22 Office Visit Since 1st Admission Have you seen your PCP in the office since discharge?: No Had an appointment Been Scheduled?: No ED visits How many ED visits in the past 12 months: 2 Assessment for Readmission Summary of readmission circumstances, based upon interviews: Bibi was discharged home last week with a new diagnosis of CHF; CM ensured that Bibi was provided with education on new diagnosis from nursing. She presented to the ED yesterday with chest pain, and was held in observation status for a stress test, which was completed this afternoon. Awaiting results; if negative, she will likely return home with no new services. CM will discuss educational resources provided on last admission to determine the patient's understanding of this condition, and will discuss this with nursing in order for additional education to be provided if needed. CM will continue to follow.
--- NOTE | 2022-12-23 17:50 | PGE_ITS ---
Date of Service Date of service: 12/23/22 Time of Service: 17:50 Assessment and Plan Assessment and plan (1) Chest pain: Status: Resolved Assessment and plan: Continue tele. Stress test completed and negative Covid neg (2) (HFpEF) heart failure with preserved ejection fraction: Status: Acute Assessment and plan: Monitor volume status. Avoid NSADS. (3) Hypertension: Status: Chronic Assessment and plan: Continue lisinopril. (4) Hyperlipidemia: Status: Chronic Assessment and plan: Check Fasting lipid panel Elevated cholesterol started on Atorvastatin 20 mg nightly (5) Fibromyalgia muscle pain: Status: Chronic Assessment and plan: Continue lyrica, tylenol; avoid NSAIDS (6) QT prolongation: Assessment and plan: Electrolytes ok. On citalopram. Continue tele (7) DVT prophylaxis: Status: Deleted Assessment and plan: SC enoxaparin (8) Discharge planning issues: Status: Deleted Assessment and plan: Full code Discussed with Dr Pope Subjective Subjective Patient reports: no new complaints, tolerating a regular diet, voiding w/o difficulty and bowel movement; denies diarrhea, vomiting or fever Interval history since last seen: Awake alert, states she does not have a ride home, she is off of oxygen, she states she is feeling a little anxious about going home and having to return because she has chest pain or gets short of breath again. Reassured her labs look good, her lungs are clear and she does not require oxygen. Exam Narrative Exam Narrative: General: Anxious obese CA&Ox3, conversant, pleasant. Neurological: A&Ox3, no focal deficits Psychiatric: Anxious, approrpiate speech pattern/content Skin: Visible skin intact HEENT: Atraumatic, normocephalic, EOMI, dry MM, clear oropharynx, no submandibular or cervical lymphadenopathy, no goiter or JVD Cardiovascular: RRR, no m/r/g Lungs: CTAB Gastrointestinal: soft, nontender, nondistended Genitourinary: deferred Extremities: nonpitting edema BLEs, symmetric, no c/c. Psych Mental Status: mental status grossly normal Speech and Movement: speech and movement normal Mood: congruent mood Affect: normal affect Objective Last Vital Signs Temp 36.5 C 12/23/22 16:28 Pulse 54 L 12/23/22 16:28 Resp 16 12/23/22 16:28 BP 159/74 H 12/23/22 16:28 Pulse Ox 98 12/23/22 16:28 Laboratory Results - last 24 hr 12/22/22 12/22/22 12/22/22 17:19 17:19 18:20 WBC RBC Hgb Hct MCV MCH MCHC RDW Plt Count MPV Immature Gran % Neutrophils % Lymphocytes % Monocytes % Eosinophils % Basophils % Nucleated RBC % Absolute Neutrophils Absolute Lymphocytes Absolute Monocytes Absolute Eosinophils Absolute Basophils Sodium Potassium Chloride Carbon Dioxide Anion Gap BUN Creatinine Est GFR (CKD-EPI 2020) Glucose Hemoglobin A1c Calcium Magnesium Troponin I Triglycerides Total Cholesterol LDL Cholesterol, Calc HDL Cholesterol Procalcitonin < 0.1 COVID-19 Source Nasal/Nares SARS-CoV-2 (PCR) Negative Add-On Test Request DONE 12/23/22 12/23/22 12/23/22 06:55 06:55 06:55 WBC 4.86 RBC 3.66 L Hgb 9.9 L Hct 31.0 L MCV 85 MCH 27.0 MCHC 31.9 L RDW 14.4 Plt Count 333 MPV 11.0 Immature Gran % 0.2 Neutrophils % 64.0 Lymphocytes % 23.3 Monocytes % 8.0 Eosinophils % 3.7 Basophils % 0.8 Nucleated RBC % 0.0 Absolute Neutrophils 3.11 Absolute Lymphocytes 1.13 L Absolute Monocytes 0.39 Absolute Eosinophils 0.18 Absolute Basophils 0.04 Sodium 139 Potassium 4.1 Chloride 104 Carbon Dioxide 29.2 Anion Gap 5.8 BUN 14 Creatinine 0.8 Est GFR (CKD-EPI 2020) 78.24 Glucose 96 Hemoglobin A1c 5.8 H Calcium 9.5 Magnesium 2.1 Troponin I < 50 Triglycerides 132 Total Cholesterol 228 H LDL Cholesterol, Calc 149 H HDL Cholesterol 53 Procalcitonin COVID-19 Source SARS-CoV-2 (PCR) Add-On Test Request Time Spent with Patient Time Spent with Patient: 35-49 minutes Time was spent: preparing to see the patient(eg.review tests), ordering medications,tests, procedures, referring, communicating with other health direct care specialist, indepentently interpreting results, counseling the patient and care coordination
[2022-12-23] MEDS: Lidocaine 5% Patch 2 PATCH TP (20:57)
[2022-12-24 04:15] VITALS: BP 135/70; PULSE 64; RESP 18; TEMP 36.1; O2SAT 95
[2022-12-24 07:27] VITALS: BP 146/75; PULSE 69; RESP 16; TEMP 36.3; O2SAT 100
[2022-12-24 08:00] VITALS: BP 146/75; PULSE 63; O2SAT 100
[2022-12-24] MEDS: Cetirizine 10 MG TAB PO (08:12)
[2022-12-24] MEDS: Lisinopril 10 MG TAB PO (08:12)
[2022-12-24] MEDS: Omeprazole 20 MG CAPCR 40 MG PO (08:12)
[2022-12-24] MEDS: Citalopram 20 MG TAB PO (08:12)
[2022-12-24] MEDS: Pregabalin 100 MG CAP PO (08:12)
[2022-12-24] MEDS: Sucralfate 1 GM TAB PO ×2 (08:12→11:02)
[2022-12-24] MEDS: Sennosides/Docusate Sodium TAB 1 TAB PO (08:12)
[2022-12-24] MEDS: Multivitamin TAB 1 TAB PO (08:12)
[2022-12-24] MEDS: Citalopram 10 MG TAB PO (08:12)
[2022-12-24] MEDS: Cholecalciferol (Vitamin D3) 1,000 UNIT TAB 2000 UNITS PO (08:12)
[2022-12-24] MEDS: Magnesium Oxide 400 MG TAB PO (08:12)
[2022-12-24] MEDS: Vitamins B Comp w/C TAB 1 TAB PO (08:12)
[2022-12-24] MEDS: Patch Removal 1 EACH TP (08:17)
--- NOTE | 2022-12-24 10:47 | DSE_ITS ---
Date of service: 12/24/22 Time of Service: 10:47 DS: Diagnosis Discharge Diagnosis (1) Chest pain: Status: Acute (2) (HFpEF) heart failure with preserved ejection fraction: Status: Acute (3) Hypertension: Status: Chronic (4) Hyperlipidemia: Status: Chronic (5) Fibromyalgia muscle pain: Status: Chronic (6) QT prolongation: Status: Acute (7) DVT prophylaxis: Status: Acute (8) Discharge planning issues: Status: Acute Discharge Plan Disposition Patient Disposition: Home Condition: Good Discharge Details Reason For Visit: Chest Pain Admit Date/Time: 12/22/22 14:34 Admit Provider: Lety Pope Attending Provider: Lety Pope Primary Care Provider: Tameka Ware Hospital Course Hospital Course: This is a 72 year old female patient with PMHx of hypertension, hyperlipidemia, chronic headaches for which she was taking NSAIDS, and GERD, who was a patient at [facility] from 12/16/22 until 12/18/22 for new diagnosis of CHFpEF, who at that time had very mildly elevated troponins. She was discharged to home and returned to [facility] ED 12/22/22 with complaint of sudden onset of chest pain. The pain was reproducible. In the ED, nitroglycerin relieved her chest pain. Her first troponin was negative and her EKG was non-ischemic. Patient was placed on observation status on the hospitalist service for an MPI stress test. Following two troponins were negative. ProBNP 2128, down from last admission that was 57 93. She did have an echo on her last admission; ejection fraction is 60%.? Wall motion is normal.?Myocardial perfusion scan read by rad as negative, cardiology read is pending at time of discharge. Chest xray no acute pulmonary findings, she did not have pulmonary edema during this hospitalization. Labs were unremarkable except for elevated cholesterol. Patient was started on Atorvastatin 20 mg nightly and will follow up with PCP to follow cholesterol and adjust accordingly. Patient had no further chest pain. She did ask to have lasix to braun off CHF. She was not discharged with lasix as she had no symptoms of CHF during this hospitalization and it was explained to her it is not benign and can cause harm if not used correctly. Patient instructed not to take NSAIDS. Patient was started on Sucralfate which is continued and she will continue previously prescribed PPI twice a day. She was encouraged to discuss this with her PCP. Patient was discharged to home. She declined home health services. She was given education and a booklet regarding CHF and chest pain. She was discharged to home stable. Home Meds and New Rx's Prescriptions: New atorvastatin 20 mg tablet 20 mg PO QHS Qty: 30 0RF sucralfate 1 gram tablet 1 g PO QACHS Qty: 90 0RF Continued cholecalciferol (vitamin D3) 50 mcg (2,000 unit) capsule 50 mcg PO DAILY Hold Instructions: Home Medication placed on hold at Doctor's office (DME) Incontinence pads MED See Rx Instructions .Route .MEDSUPPLY Qty: 150 0RF Rx Instructions: As directed sennosides-docusate sodium [Senna-S] 8.6-50 mg tablet 1 tab-cap PO DAILY Qty: 90 3RF prevagen See Rx Instructions .ROUTE .COMPLEX Qty: 90 1RF Rx Instructions: Supplement Trial, as recommended by pharmacist; Supplement Trial Nurtec ODT 75 mg tablet,disintegrating 75 mg PO ONCE PRN (Reason: migraine headache) Qty: 30 1RF Rx Instructions: Continue epinephrine [EpiPen 2-Leon] 0.3 mg/0.3 mL auto-injector 0.3 mg IM PRN Qty: 2 1RF Rx Instructions: for allergic reaction fluticasone propionate 50 mcg/actuation spray,suspension 1 spray intranasal .COMPLEX Qty: 16 1RF Rx Instructions: 1 spray intranasal; lisinopril 10 mg tablet 10 mg PO BID Qty: 180 3RF Rx Instructions: Continue once a day, with BP checks (possible need for afternoon tab if BP fluctuates) Zyrtec 10 mg capsule 10 mg PO DAILY Qty: 90 3RF Rx Instructions: OTC, taking daily now vs just seasonally (DME) Lipoedema Pedal Machine See Rx Instructions .Route .MEDSUPPLY Qty: 1 0RF Rx Instructions: As discussed with [facility] cholecalciferol (vitamin D3) 250 mcg (10,000 unit) capsule 250 mcg PO QWEEK Qty: 10 0RF Rx Instructions: High dose WEEKLY, then return to 1,000 units/daily pregabalin 100 mg capsule 100 mg PO BID Qty: 180 1RF Rx Instructions: Trial 2/day, add to morning pills; Goal of 150mg BID multivitamin [Once Daily] 1 EACH tablet 1 ea PO DAILY Rx Instructions: every other day. Super B Complex + C 150 mg tablet 1 tab PO DAILY Rx Instructions: every other day magnesium oxide 400 mg magnesium capsule 400 mg PO DAILY Qty: 90 3RF Rx Instructions: Take (1) every evening .. helps with the low potassium, and may help with headache, muscle pains omeprazole 40 mg capsule,delayed release(DR/EC) 40 mg PO BID Qty: 180 3RF Rx Instructions: BID per GI diclofenac sodium 1 % gel 4 g topical QID Qty: 100 2RF Rx Instructions: apply to single foot, @ top of foot @ around ankles acetaminophen [Arthritis Pain Relief (acetam)] 650 mg tablet extended release 650 mg PO .once a day PRN (Reason: fever) Qty: 90 1RF citalopram 10 mg tablet 10 mg PO DAILY Qty: 90 3RF Rx Instructions: Take with 20mg tablet for a total of 30mg daily. 09/24/21 citalopram 20 mg tablet 20 mg PO DAILY Qty: 90 3RF Rx Instructions: Take with 10mg tablet for a total of 30mg daily. 09/24/21 Discontinued ibuprofen 800 mg tablet 800 mg PO Q8H MDD 2400mg PRN (Reason: fever or pain) Qty: 100 3RF Rx Instructions: sparingly for arthritic pain WITH FOOD (no longer taking celebrex) naproxen 500 mg tablet See Rx Instructions .ROUTE .COMPLEX Qty: 60 0RF Dose Instruction: TAKE ONE TABLET BY MOUTH TWICE A DAY NEEDED FOR PAIN ( DO NOT TAKE WITH IBUPROFEN/ ADVIL) Rx Instructions: TAKE ONE TABLET BY MOUTH TWICE A DAY NEEDED FOR PAIN ( DO NOT TAKE WITH IBUPROFEN/ ADVIL) Discharge Instructions Instructions: Hyperlipidemia (DC) Additional Instructions: Start Atorvastatin 20 mg orally every night for your cholesterol. Take Sucralfate before meals and at bedtime, this chest pain could have been referred pain from your throat, continue Omeprazole. Stand Alone Forms: Nursing Discharge Form Referrals: Tameka Ware DO [Primary Care Provider] - 01/09/23 10:45 am (Patient was started on Atorvastatin 20 mg orally at night for hypercholesterolemia and requires follow up in the coming months as well. Started on Sucralfate as CP may be referred esophageal. Patient was admitted earlier in the week for CHF - echo-Ejection fraction is 60%. Wall motion is normal. Myocardial perfusion scan nuc med results read by rad as neg, pending cards read. Patient was not discharged on diuretics; will need follow up.) Activity:: Activity as Tolerated Equipment/Supplies:: No Equipment Needed Diet:: Low Sodium Discharge Orders Discharge Orders: Discharge Order (Routine); Ordered 12/24/22 Ordered By: Bibi Vu Discharge Data Discharge Date/Time-TO BE ENTERED AT DEPARTURE: 12/24/22 15:32 DS: Summary Time Spent with Patient providing and/or coordinating discharge services: Greater than 30 minutes Status at Discharge Functional status at discharge: uses cane/walker Overall status at discharge: patient is back to baseline Mental Status: mental status grossly normal Speech and Movement: speech and movement normal Mood: congruent mood Affect: normal affect Exam Narrative Exam Narrative: General: Anxious obese CA&Ox3 Neurological: A&Ox3, no focal deficits Psychiatric: Anxious, approrpiate speech pattern/content Skin: Visible skin intact HEENT: Atraumatic, normocephalic, EOMI, dry MM, clear oropharynx, no submandibular or cervical lymphadenopathy, no goiter or JVD Cardiovascular: RRR, no m/r/g Lungs: CTAB Gastrointestinal: soft, nontender, nondistended Genitourinary: deferred Extremities: nonpitting edema BLEs, symmetric, no c/c. Psych Mental Status: mental status grossly normal Speech and Movement: speech and movement normal Mood: congruent mood Affect: normal affect DS: Data Vitals/I&O Vitals and I&O: Vital Signs Temperature 36.3 C L 12/24/22 07:27 Temperature Source Tympanic 12/24/22 07:27 Pulse 63 12/24/22 08:00 Pulse Rhythm Regular 12/24/22 08:00 Respiratory Rate 16 12/24/22 07:27 Respiratory Effort Normal, Non-Labored 12/24/22 08:00 Respiratory Depth Normal 12/24/22 08:00 Respiratory Pattern Normal 12/24/22 08:00 Blood Pressure 146/75 H 12/24/22 08:00 Blood Pressure Position Sitting 12/22/22 12:58 Pulse Oximetry 100 12/24/22 08:00 Oxygen Delivery Method Room Air 12/24/22 07:27 Oxygen Flow Rate 0 12/24/22 07:27 Pain Level 5 12/24/22 08:00 Comment BP called over radio 12/23/22 15:36 Intake & Output 12/23/22 12/23/22 12/24/22 11:59 23:59 11:59 Intake Total 410 / 410 Output Total 400 / 400 400 / 400 Balance -390 / -390 Intake: IV Oral 400 / 400 Output: Urine 400 / 400 400 / 400 Other: Urine Color Yellow Yellow Yellow Urine Appearance Clear Clear Clear Stool Size Large Stool Characteristics Soft Formed Brown Voiding Methods Bedside Commode PFS All Active Problems (Updated 12/22/22 @ 17:21 by Lety Pope MD) QT prolongation (Acute) Discharge planning issues (Acute) DVT prophylaxis (Acute) (HFpEF) heart failure with preserved ejection fraction (Acute) Anemia (Chronic) Respiratory failure (Acute) Chest pain (Acute) Hypokalemia (Acute) Heart failure (Acute) Hypertension (Chronic) Elevated BPs, with Hx HTN. Hx Rx per pt rpt? Starting lisinopril. Hypertensive retinopathy (Acute ~02/19/22) early, both Eyes Chest wall muscle strain (Acute) Ejection fraction < 50% (Acute) Ankle edema, bilateral (Acute) new onset Atypical chest pain (Acute) Neuropathy (Chronic) vs fibro? myalgias? Fibromyalgia muscle pain (Chronic) Anemia (Chronic) Incontinence in female (Acute) Complicated grief (Acute) Shoulder pain, right (Acute) Acute on chronic pain, injury? Depressive disorder, not elsewhere classified (Chronic 08/04/11) Stress due to illness of family member (Acute) Bro w/ lung CA; Sister with CAD, recent PM/Bypass); Sis w/ ut cancer... Seasonal affective disorder (Acute) Arthritis (Acute 09/12/13) Hallux valgus with bunions (Acute 10/24/13) Headache (Acute 08/31/12) Spondylosis of cervical spine (Acute 07/06/14) Toxic effect of venom (Acute 08/04/11) Sleep disorder (Acute 02/01/13) [facility] ambien use Rheumatoid arthritis (Acute 09/20/13) R 2&3 MCP & TMP; [place] [facility] [place] Primary osteoarthritis involving multiple joints (Acute 08/04/11) s/p bilateral TKA, following with Ortho (09/09/17) Obesity, Class III, BMI 40-49.9 (morbid obesity) (Acute 08/04/11) Weight goal: 190 Myalgia and myositis, unspecified (Acute 08/04/11) Fibromyalgia Migraine (Acute 12/06/12) SINCE PUBERTY; ANTONIO-MENSTRUAL UNTIL MENOPAUSE; WORSE SINCE ~05/2011; Topirimate helps, Dr Fuller, Dr Cooper 2012 Please evaluate for BOTOX for worsening migraines Localized adiposity of lower extremity (Acute 10/16/17) [facility] [place] Dr Carlos Veras, Plastic surgery of bilateral legs, fullness surrounding knees. Surgical removal suggested Hyperlipidemia (Chronic 08/04/11) LDL GOAL 130; CV risk 5.1% 05/2016 Hirsutism (Acute 08/04/11) Dr Clyde astudillo Headache (Acute 08/31/12) Dr Fuller 09/2012; chronic; [place] 03/22/13 Hallux abductovalgus with bunions (Acute 10/24/13) bilat Gastroesophageal reflux disease (Acute 08/04/11) + ON BA SWALLOW 11/2011; Omeprazole effective Familial tremor (Acute 09/08/16) similar to her two sisters Degenerative joint disease of cervical spine (Acute 07/06/14) Cervicalgia (Acute 08/04/11) WORK INJURY 2004 shoulder injury Atrophic vaginitis (Acute 12/26/14) Arthritis (Acute 09/12/13) R hand index middle MCP; R foot 2 3 MTP Allergic rhinitis (Acute 12/26/13) year round, sarah goldenrod & milkweed, rx OTC Loratadine Surgical History (Updated 02/28/22 @ 14:59 by Maude Rice RN) Abdominal hysterectomy (07/11/98) Dr Arellano, [facility] Appendectomy (07/11/98) Dr Arellano, along with hysterectomy section (05/06/75) Dr Grant, [facility] Cholecystectomy (02/10/12) Dr Funes Ligation of fallopian tube (11/12/75) Dr Castro, [facility] Replacement of total knee joint (05/25/06) R Knee Dr Ted Spicer R Knee revsion Dr [place] [facility] [place] [facility] [place] Replacement of total knee joint (07/25/09) R Knee Dr Ted Spicer R Knee revsion Dr [place] [facility] [place] [facility] [place] Replacement of total knee joint (09/02/11) R Knee Dr Ted Spicer R Knee revsion Dr [place] [facility] [place] [facility] [place]P excision of lipoma (12/2018[place] [facility] [place] Family History Mother , breast ca at age 47. Tobacco dependence Breast cancer Lung cancer COPD (chronic obstructive pulmonary disease) Father , renal failure at age 62. Tobacco dependence COPD (chronic obstructive pulmonary disease) Atrial fibrillation Renal failure Sister Age: 67 Tobacco dependence Lung cancer COPD (chronic obstructive pulmonary disease) Bladder cancer Sister Age: 69 Tobacco dependence Diabetes Brother Age: 67 Tobacco dependence COPD (chronic obstructive pulmonary disease) Heart disease Paternal Grandmother Diabetes Social History Smoking/Tobacco Use Status: Never Smoking risk assessment performed?: Yes Alcohol Intake: current Alcohol Intake frequency: holidays/special occasions only Drug use: Never Substance use type: does not use Adopted: No Caregiver/Support person: No Foster care: No Household members: none Housing: house Number of Children: 1 number of grandchildren: 1 Education Level: master's degree Do you need help understanding health information?: Rarely current occupation: retired Pets and animals: Yes Sexually active: No Do you think of yourself as: straight/heterosexual Current gender identity: female What is your relationship status?: How often do you talk on the phone with friends or family?: three or more times per week How often do you get together with friends or relatives?: three or more times per week Do you belong to any clubs or organized social groups?: yes Panel score (0-1 are the most socially isolated patients): 2 What type of physical activity do you participate in: walking Duration: 30-45 minutes/day Frequency: 3-4 times per week Ellen/Congregational: Tenriism Special ellen needs: No Seatbelt use: always Helmet use: Yes Helmet use: never Drive intox or ride w/intox cryogenic transport driver: No Do you feel safe at home: Yes Do you feel safe in your relationship?: Yes Time Spent with Patient Time Spent with Patient: 45-69 minutes Time was spent: preparing to see the patient(eg.review tests), ordering medications,tests, procedures, referring, communicating with other health live in caregiver, indepentently interpreting results, counseling the patient and care coordination
--- NOTE | 2022-12-24 14:54 | PDOC.CMDIS ---
Date of service: 12/24/22 Time of Service: 14:54 LACE Index Scoring Tool Questions: Length of Stay (in days): 2 Was the patient admitted via the E.D.?: Yes Comorbidities: Congestive Heart Failure E.D. Visits: 1 Answers: Total Score: 8 Risk of Readmission: Low Risk Care Management Discharge Plan Reason for Hospitalization: Chest Pain Discharge Plan: Bibi will return home today with no new services. CM discussed services, which she declined. Her friend will drive her home via private vehicle. She will follow up with her PCP and discharge plan of care. She is happy to be going home. Patient/Family Education Needs: Review discharge instructions and limitations, discussion of self care needs including ask me three.
== END 2022-12-24 15:32 | disposition home or self-care (01) ==
LOC: ER 14:59 → MS 15:24
PROVIDERS: Admitting Provider Internal Medicine; Emergency Provider Emergency Medicine; PCP Student in an Organized Health Care Education/Training Program; Visit Provider Internal Medicine
DX: I11.0 Hypertensive heart disease with heart failure (principal); R07.9 Chest pain, unspecified; I50.31 Acute diastolic (congestive) heart failure; M79.7 Fibromyalgia; E78.5 Hyperlipidemia, unspecified; G44.89 Other headache syndrome; D64.9 Anemia, unspecified; E87.6 Hypokalemia; H35.033 Hypertensive retinopathy, bilateral; F32.A Depression, unspecified; R32 Unspecified urinary incontinence; Z79.899 Other long term (current) drug therapy; M06.9 Rheumatoid arthritis, unspecified; M15.9 Polyosteoarthritis, unspecified; Z96.653 Presence of artificial knee joint, bilateral; K21.9 Gastro-esophageal reflux disease without esophagitis; G25.0 Essential tremor; E66.9 Obesity, unspecified; Z68.33 Body mass index [BMI] 33.0-33.9, adult; R00.1 Bradycardia, unspecified; I45.81 Long QT syndrome
CPT/HCPCS: 36415; 78452; 80048; 80053; 80061; 84145; 87635; 93005; 96374; 99285; J1650; 71045; 83036; 83735; 83880; 84443; 84484; 85025; 85610; 85730; 93010; 93017; 99223; 99232; 99239; G0378; J2785; J3490

== ENCOUNTER 2023-01-05 18:44 | Outpatient (REF) | payer OTHER, MEDICAID, SELFPAY ==
[2023-01-05 18:29] LABS: NT-proBNP 442 pg/mL (<300)
== END 2023-01-05 18:45 | disposition home or self-care (01) ==
LOC: LBN 18:44
PROVIDERS: PCP Student in an Organized Health Care Education/Training Program; Visit Provider Student in an Organized Health Care Education/Training Program
DX: I50.30 Unspecified diastolic (congestive) heart failure (principal)
CPT/HCPCS: 83880

== ENCOUNTER 2023-01-09 19:24 | Outpatient (REF) | payer OTHER, MEDICAID, SELFPAY ==
[2023-01-09 19:54] LABS: HGB 9.5 g/dL (11.2-15.7)
[2023-01-09 20:11] LABS: Iron 18 ug/dL (50-170); Total Iron Binding Capacity 240 ug/dL (250-450); Transferrin Sat 8 % (15-50)
[2023-01-09 20:29] LABS: Ferritin 111 ng/mL (8-252)
[2023-01-09 20:51] LABS: NT-proBNP 404 pg/mL (<300)
== END 2023-01-09 19:25 | disposition home or self-care (01) ==
LOC: LBN 19:24
PROVIDERS: PCP Student in an Organized Health Care Education/Training Program; Visit Provider Student in an Organized Health Care Education/Training Program
DX: D50.9 Iron deficiency anemia, unspecified; M25.511 Pain in right shoulder
CPT/HCPCS: 82728; 83540; 83550; 83880; 85018

== ENCOUNTER 2023-01-23 14:31 | Outpatient (CLI) | payer OTHER, MEDICAID, SELFPAY ==
[2023-01-23 14:37] LABS: Anion Gap 11.8 mmol/L (3-11); BUN 13 mg/dL (7-18); CO2 27.2 mmol/L (21.0-32.0); CREATININE 0.9 mg/dL (0.55-1.02); Calcium 9.9 mg/dL (8.5-10.1); Chloride 98 mmol/L (98-107); Estimated GFR 67.92 (mL/min/1.73m2); Glucose 114 mg/dL (74-106); Potassium 3.6 mmol/L (3.5-5.1); Sodium 137 mmol/L (136-145)
[2023-01-23 14:50] LABS: NT-proBNP 259 pg/mL (<300)
[2023-01-23 16:53] LABS: Vitamin D 25 Total 36.5 ng/mL (30-100)
== END 2023-01-23 14:32 | disposition home or self-care (01) ==
LOC: LBO 14:31
PROVIDERS: PCP Student in an Organized Health Care Education/Training Program; Visit Provider Nurse Practitioner Adult Health
DX: E56.9 Vitamin deficiency, unspecified (principal); I50.9 Heart failure, unspecified; R06.02 Shortness of breath; R63.5 Abnormal weight gain
CPT/HCPCS: 36415; 80048; 80061; 82306; 83735; 83880

== ENCOUNTER 2023-02-18 02:00 | Outpatient (RCR) | payer OTHER, MEDICAID, SELFPAY ==
[2023-02-04] MEDS: Normal Saline Flush 10 ML SYR IVP (12:55)
[2023-02-04] MEDS: IRON SUCROSE COMPLEX 200 MG in Normal Saline 100 ML 440 MG IVPB (13:12)
[2023-02-18] MEDS: Normal Saline Flush 10 ML SYR IVP (12:32)
[2023-02-18] MEDS: IRON SUCROSE COMPLEX 200 MG in Normal Saline 100 ML 440 MG IVPB (13:14)
== END 2023-02-21 23:59 | disposition home or self-care (01) ==
LOC: INF 02:00
PROVIDERS: PCP Student in an Organized Health Care Education/Training Program; Visit Provider Student in an Organized Health Care Education/Training Program
DX: E61.1 Iron deficiency (principal); D64.9 Anemia, unspecified; I50.30 Unspecified diastolic (congestive) heart failure
CPT/HCPCS: 96365; J1756

== ENCOUNTER 2023-03-18 03:12 | Outpatient (RCR) | payer OTHER, MEDICAID, SELFPAY ==
[2023-02-25] MEDS: IRON SUCROSE COMPLEX 200 MG in Normal Saline 100 ML 440 MG IVPB (13:15)
[2023-02-25] MEDS: Normal Saline Flush 10 ML SYR IVP (13:16)
[2023-03-18] MEDS: IRON SUCROSE COMPLEX 200 MG in Normal Saline 100 ML 440 MG IVPB (12:51)
[2023-03-18] MEDS: Normal Saline Flush 10 ML SYR IVP (12:52)
== END 2023-03-24 23:59 | disposition home or self-care (01) ==
LOC: INF 03:12
PROVIDERS: PCP Student in an Organized Health Care Education/Training Program; Visit Provider Student in an Organized Health Care Education/Training Program
DX: E61.1 Iron deficiency (principal); D64.9 Anemia, unspecified; I50.30 Unspecified diastolic (congestive) heart failure
CPT/HCPCS: 96365; J1756

== ENCOUNTER 2023-03-25 04:49 | Outpatient (RCR) | payer OTHER, MEDICAID, SELFPAY ==
[2023-03-25] MEDS: Normal Saline Flush 10 ML SYR IVP (12:14)
[2023-03-25] MEDS: IRON SUCROSE COMPLEX 200 MG in Normal Saline 100 ML 440 MG IVPB (12:24)
== END 2023-04-23 23:59 | disposition home or self-care (01) ==
LOC: INF 04:49
PROVIDERS: PCP Student in an Organized Health Care Education/Training Program; Visit Provider Student in an Organized Health Care Education/Training Program
DX: E61.1 Iron deficiency (principal); D64.9 Anemia, unspecified; I50.30 Unspecified diastolic (congestive) heart failure
CPT/HCPCS: 96365; J1756

== ENCOUNTER 2023-09-18 01:14 | Outpatient (CLI) | payer OTHER, MEDICAID, SELFPAY ==
[2023-09-18 11:58] LABS: Anion Gap 11.6 mmol/L (3-11); BUN 19 mg/dL (7-18); CO2 25.4 mmol/L (21.0-32.0); CREATININE 1.1 mg/dL (0.55-1.02); Calcium 9.5 mg/dL (8.5-10.1); Calculated LDL 132 mg/dL (<100); Chloride 105 mmol/L (98-107); Cholesterol 210 mg/dL (<200); Estimated GFR 53.39 (mL/min/1.73m2); Glucose 101 mg/dL (74-106); HDL Cholesterol 63 mg/dL (40-60); Potassium 4.2 mmol/L (3.5-5.1); Sodium 142 mmol/L (136-145); Triglyceride 77 mg/dL (<150)
[2023-09-18 12:20] LABS: Iron 83 ug/dL (50-170); Total Iron Binding Capacity 242 ug/dL (250-450); Transferrin Sat 34 % (15-50)
== END 2023-09-18 01:15 | disposition home or self-care (01) ==
LOC: LBO 01:14
PROVIDERS: PCP Student in an Organized Health Care Education/Training Program; Referring Provider Student in an Organized Health Care Education/Training Program; Visit Provider Student in an Organized Health Care Education/Training Program
DX: E61.1 Iron deficiency (principal); E87.6 Hypokalemia; I10 Essential (primary) hypertension
CPT/HCPCS: 36415; 80048; 80061; 83540; 83550; 83735

== ENCOUNTER 2023-10-29 05:49 | Emergency (ER) | payer OTHER, MEDICAID, SELFPAY ==
[2023-10-29] VITALS (32 sets, daily range): BP systolic 130–176; BP diastolic 41–122; PULSE 48–69; RESP 10–25; TEMP 36.9; O2SAT 94–99
--- NOTE | 2023-10-29 05:30 | RT.EKG_ITS ---
APPROVED REPORT Exam: Resting ECG Reason for Exam: chest pain Patient Location: E HR:52 bpm ECG Measurements Heart Rate 52 AXIS VA 148 P 23 QRSd 103 QRS 9 QT 473 T 29 QTc 441 Conclusion Sinus bradycardia...rate< 60 PHysician: no stemi
--- NOTE | 2023-10-29 05:45 | DI.RAD_ITS ---
Exam(s) XR PORTABLE CHEST AP EXAM: XR PORTABLE CHEST AP CLINICAL HISTORY: left sided chest pain. TECHNIQUE: 2D digital imaging was performed. COMPARISON: CR XR PORTABLE CHEST AP from 12/22/2022 FINDINGS: Single AP portable view. Heart size is upper normal. The mediastinum is not widened. Lungs are clear. No infiltrates nor obvious pleural effusions. IMPRESSION: No acute pulmonary findings on this single AP portable view of the chest. DATA REPOSITORY: RADIATION DOSE DELIVERED:
[2023-10-29 06:04] LABS: Abs Immature Grans 0.02 10^3/uL (0.0-0.06); Absolute Basophil Count 0.05 10^3/uL (0.0-0.2); Absolute Lymphocyte Count 1.41 10^3/uL (1.2-3.4); Absolute Monocyte Count 0.66 10^3/uL (0.1-0.8); Absolute Neutrophil Count 4.52 10^3/uL (1.2-6.7); Basophils % 0.7 %; Eosinophils % 2.9 %; HCT 30.1 % (36.0-46.0); HGB 9.7 g/dL (11.2-15.7); Immature Grans % 0.3 %; Lymphocytes % 20.6 %; MCH 28.8 pg (27.0-33.0); MCHC 32.2 % (32.0-36.0); MCV 89 fL (80-95); MPV 9.9 fL (8.0-11.0); Monocytes % 9.6 %; Neutrophils % 65.9 %; Platelet Count 306 10^3/uL (130-400); RBC 3.37 10^6/uL (3.93-5.22); RDW 13.5 % (11.7-14.6); RDW-SD 44.2 fL; WBC 6.86 10^3/uL (4.4-10.8)
--- NOTE | 2023-10-29 06:04 | W.ED.GENAD ---
Discharge Plan Discharge Details Chief Complaint: Chest Pain Clinical Impression: Chest discomfort Primary Care Provider: Tameka Ware ED Provider: Zachary Boo Home Meds and New Rx's Prescriptions: No Action (DME) Incontinence pads MED See Rx Instructions .Route .MEDSUPPLY Qty: 150 0RF Rx Instructions: As directed sennosides-docusate sodium [Senna-S] 8.6-50 mg tablet 1 tab-cap PO DAILY Qty: 90 3RF (DME) RSV & Shingles See Rx Instructions .Route .MEDSUPPLY Qty: 1 0RF Rx Instructions: Can you please call patient? She has not internet to get online to schedule. epinephrine [EpiPen 2-Leon] 0.3 mg/0.3 mL auto-injector 0.3 mg IM PRN Qty: 2 1RF Rx Instructions: for allergic reaction fluticasone propionate 50 mcg/actuation spray,suspension 1 spray intranasal .COMPLEX Qty: 16 1RF Rx Instructions: 1 spray intranasal; nitroglycerin 0.3 mg tablet, sublingual 0.3 mg sublingual Q5-15M PRN (Reason: chest pain) Qty: 30 1RF Rx Instructions: As best dispensed (#); Call 911 if > 3 doses per episode pregabalin 150 mg capsule 150 mg PO BID Qty: 60 1RF Rx Instructions: Increase to 150mg twice/day prevagen See Rx Instructions .ROUTE .COMPLEX Qty: 90 1RF Rx Instructions: Supplement Trial, as recommended by pharmacist; Supplement Trial Zyrtec 10 mg capsule 10 mg PO DAILY Qty: 90 3RF Rx Instructions: OTC, taking daily now vs just seasonally naproxen sodium 220 mg capsule 220 mg PO HS Hold Instructions: holding qHS 01/08/23 Patient Comments: Pt reports taking, has one left. Unclear if supposed to be taking NSAIDS, may need education.HE (DME) Lipoedema Pedal Machine See Rx Instructions .Route .MEDSUPPLY Qty: 1 0RF Rx Instructions: As discussed with [facility] cholecalciferol (vitamin D3) 250 mcg (10,000 unit) capsule 250 mcg PO QWEEK Qty: 10 0RF Rx Instructions: High dose WEEKLY, then return to 1,000 units/daily multivitamin [Once Daily] 1 EACH tablet 1 ea PO DAILY Rx Instructions: every other day. Super B Complex + C 150 mg tablet 1 tab PO DAILY Rx Instructions: every other day magnesium oxide 400 mg magnesium capsule 400 mg PO DAILY Qty: 90 3RF Rx Instructions: Take (1) every evening .. helps with the low potassium, and may help with headache, muscle pains acetaminophen [Arthritis Pain Relief (acetam)] 650 mg tablet extended release 650 mg PO .once a day PRN (Reason: fever) Qty: 90 1RF diclofenac sodium 1 % gel 4 g topical QID Qty: 100 2RF Rx Instructions: apply to single foot, @ top of foot @ around ankles omeprazole 40 mg capsule,delayed release(DR/EC) 40 mg PO BID Qty: 180 3RF Rx Instructions: BID per GI ibuprofen 800 mg tablet 800 mg PO Q8H MDD 2400mg PRN (Reason: fever or pain) Qty: 100 3RF Rx Instructions: Use sparingly for arthritic pain WITH FOOD (instead of Calebrex) ibuprofen 800 mg tablet 800 mg PO Q8H MDD 2400mg PRN (Reason: fever or pain) Qty: 100 3RF Rx Instructions: sparingly for arthritic pain WITH FOOD (no longer taking celebrex) furosemide 20 mg tablet 20 mg PO DAILY Qty: 90 3RF Rx Instructions: daily PRN wt gain > 3 lb per disc w/ pcp/cc lisinopril 10 mg tablet 10 mg PO BID Qty: 180 3RF Rx Instructions: Continue once a day, with BP checks (possible need for afternoon tab if BP fluctuates) Nurtec ODT 75 mg tablet,disintegrating 75 mg PO ONCE PRN (Reason: migraine headache) Qty: 30 1RF Rx Instructions: Continue atorvastatin 20 mg tablet 20 mg PO QHS Qty: 90 1RF Rx Instructions: Re-check Lipid Panel citalopram 10 mg tablet 10 mg PO DAILY Qty: 90 3RF Rx Instructions: Take with 20mg tablet for a total of 30mg daily. 09/24/21 citalopram 20 mg tablet 20 mg PO DAILY Qty: 90 3RF Rx Instructions: Take with 10mg tablet for a total of 30mg daily. 09/24/21 albuterol sulfate 90 mcg/actuation aerosol powdr breath activated 2 inh inhalation Q6H PRN (Reason: shortness of breath or wheezing) Qty: 1 1RF Rx Instructions: As per insurance coverage (DME) Leg-XR CISER-PRO Delux See Rx Instructions .Route .[facility] Qty: 1 0RF Rx Instructions: As directed HPI General Date/Time Provider Initiated Documentation: 10/29/23 05:56. HPI Narrative: This is a 72-year-old female with a past medical history of fibromyalgia, hypertension, neuropathy, rheumatoid arthritis, cholesterol, obesity, who takes a daily aspirin, and has never smoked, with a family history positive for cardiac disease presents today for evaluation of chest pain. Patient states that she has some chronic achiness in her chest on a regular basis, today her chest hurt slightly more than normal she felt somewhat fatigued throughout the day. However at 3 AM she noticed that she had more chest pain than normal when she woke up, pain continued till 5 AM and she took a nitroglycerin with no improvement. EMS was called, and she was given 325 of aspirin and brought to the ER for further assessment. She describes the pain as sharp in the left chest radiating to her left shoulder. She denies any falls or trauma. She admits to pleuritic chest pain with deep breathing, but denies any long trips surgeries or procedures. She denies having pain like this before. No other complaints at this time. No other modifying factors. Related Data Home Medications Medication Instructions Recorded Confirmed multivitamin (Once Daily tablet) 1 ea PO DAILY 07/27/12 10/29/23 vitamin B comp with C no.4 150 mg 1 tab PO DAILY 03/03/18 10/29/23 tablet (Super B Complex + C) Incontinence pads #150 ea 01/11/21 10/29/23 sennosides 8.6 mg-docusate sodium 1 tab-cap PO DAILY #90 tabs 09/24/21 10/29/23 50 mg tablet (Senna-S) prevagen See Rx Instructions .Route 01/28/22 10/29/23 .COMPLEX #90 ea cetirizine 10 mg capsule (Zyrtec) 10 mg PO DAILY #90 caps 04/18/22 10/29/23 magnesium oxide 400 mg PO DAILY hypokal #90 05/01/22 10/29/23 tab-caps acetaminophen 650 mg 650 mg PO .once a day PRN fever 09/19/22 10/29/23 tablet,extended release (Arthritis #90 tabs Pain Relief (acetaminophen) ER) Lipoedema Pedal Machine #1 ea 11/04/22 10/29/23 cholecalciferol (vitamin D3) 250 250 mcg PO QWEEK #10 caps 11/09/22 10/29/23 mcg (10,000 unit) capsule naproxen sodium 220 mg capsule 220 mg PO HS 01/09/23 10/29/23 diclofenac sodium 1 % topical gel 4 g topical QID acute 01/13/23 10/29/23 musculo-skeletal pain #100 grams RSV & Shingles #1 ea 03/26/23 10/29/23 omeprazole 40 mg capsule,delayed 40 mg PO BID #180 caps 06/15/23 10/29/23 release ibuprofen 800 mg tablet 800 mg PO Q8H PRN fever or pain 06/28/23 10/29/23 #100 tab-caps ibuprofen 800 mg tablet 800 mg PO Q8H PRN fever or pain 06/28/23 10/29/23 #100 tab-caps furosemide 20 mg tablet 20 mg PO DAILY #90 tabs 07/17/23 10/29/23 lisinopril 10 mg tablet 10 mg PO BID #180 tabs 08/25/23 10/29/23 albuterol sulfate 90 mcg/actuation 2 inh inhalation Q6H PRN shortness 09/04/23 10/29/23 breath activated powder inhaler of breath or wheezing #1 ea atorvastatin 20 mg tablet 20 mg PO QHS #90 tabs 09/04/23 10/29/23 citalopram 10 mg tablet 10 mg PO DAILY #90 tabs 09/04/23 10/29/23 citalopram 20 mg tablet 20 mg PO DAILY #90 tabs 09/04/23 10/29/23 rimegepant 75 mg disintegrating 75 mg PO ONCE PRN migraine 09/04/23 10/29/23 tablet (Nurtec ODT) headache #30 tabs epinephrine 0.3 mg/0.3 mL 0.3 mg (0.3 mL) IM PRN bee sting 09/22/23 10/29/23 injection, auto-injector (EpiPen #2 multiple units 2-Leon) fluticasone propionate 50 1 spray intranasal .COMPLEX #16 mL 09/22/23 10/29/23 mcg/actuation nasal spray,suspension nitroglycerin 0.3 mg sublingual 0.3 mg sublingual Q5-15M PRN chest 09/22/23 10/29/23 tablet pain #30 tabs pregabalin 150 mg capsule 150 mg PO BID #60 caps 09/22/23 10/29/23 Leg-XR CISER-PRO Delux #1 ea 10/21/23 10/29/23 Previous Rx's Medication Instructions Recorded Incontinence pads #150 ea 01/11/21 sennosides 8.6 mg-docusate sodium 1 tab-cap PO DAILY #90 tabs 09/24/21 50 mg tablet (Senna-S) prevagen See Rx Instructions .Route 01/28/22 .COMPLEX #90 ea cetirizine 10 mg capsule (Zyrtec) 10 mg PO DAILY #90 caps 04/18/22 magnesium oxide 400 mg PO DAILY hypokal #90 05/01/22 tab-caps acetaminophen 650 mg 650 mg PO .once a day PRN fever 09/19/22 tablet,extended release (Arthritis #90 tabs Pain Relief (acetaminophen) ER) Lipoedema Pedal Machine #1 ea 11/04/22 cholecalciferol (vitamin D3) 250 250 mcg PO QWEEK #10 caps 11/09/22 mcg (10,000 unit) capsule diclofenac sodium 1 % topical gel 4 g topical QID acute 01/13/23 musculo-skeletal pain #100 grams RSV & Shingles #1 ea 03/26/23 omeprazole 40 mg capsule,delayed 40 mg PO BID #180 caps 06/15/23 release ibuprofen 800 mg tablet 800 mg PO Q8H PRN fever or pain 06/28/23 #100 tab-caps ibuprofen 800 mg tablet 800 mg PO Q8H PRN fever or pain 06/28/23 #100 tab-caps furosemide 20 mg tablet 20 mg PO DAILY #90 tabs 07/17/23 lisinopril 10 mg tablet 10 mg PO BID #180 tabs 08/25/23 albuterol sulfate 90 mcg/actuation 2 inh inhalation Q6H PRN shortness 09/04/23 breath activated powder inhaler of breath or wheezing #1 ea atorvastatin 20 mg tablet 20 mg PO QHS #90 tabs 09/04/23 citalopram 10 mg tablet 10 mg PO DAILY #90 tabs 09/04/23 citalopram 20 mg tablet 20 mg PO DAILY #90 tabs 09/04/23 rimegepant 75 mg disintegrating 75 mg PO ONCE PRN migraine 09/04/23 tablet (Nurtec ODT) headache #30 tabs epinephrine 0.3 mg/0.3 mL 0.3 mg (0.3 mL) IM PRN bee sting 09/22/23 injection, auto-injector (EpiPen #2 multiple units 2-Leon) fluticasone propionate 50 1 spray intranasal .COMPLEX #16 mL 09/22/23 mcg/actuation nasal spray,suspension nitroglycerin 0.3 mg sublingual 0.3 mg sublingual Q5-15M PRN chest 09/22/23 tablet pain #30 tabs pregabalin 150 mg capsule 150 mg PO BID #60 caps 09/22/23 Leg-XR CISER-PRO Delux #1 ea 10/21/23 Allergies Allergy/AdvReac Type Severity Reaction Status Date / Time Penicillins Allergy Severe HOSPITALIZE Verified 10/29/23 06:03 D venom-honey bee Allergy Severe ANAPHYLAXSI Verified 10/29/23 06:03 S oxycodone AdvReac Severe HEART Verified 10/29/23 06:03 ATTACK LIKE SYMPTOMS amitriptyline AdvReac Intermediate WEIGHT Verified 10/29/23 06:03 GAIN ON 50 MG aspirin AdvReac Intermediate GI Verified 10/29/23 06:03 INTOLERANCE bupropion [From Wellbutrin] AdvReac Intermediate depression Verified 10/29/23 06:03 hydrocodone AdvReac Intermediate NAUSEA, Verified 10/29/23 06:03 CONFUSION hydroxychloroquine AdvReac Intermediate blurred Verified 10/29/23 06:03 vision and headache All Bees! Allergy Severe Anaphylaxis Uncoded 10/29/23 06:03 General Stated Complaint: Chest Pain SILVERIO: 2 Review of Systems All systems reviewed & are unremarkable except as noted in HPI and below Exam Narrative Exam Narrative: 1.Const: Well-nourished, Well-developed, appearing stated age 2.Eyes: PERRL, no conjunctival injection, and symmetrical lids. 3.ENT: Atraumatic external nose and ears. Moist MM. Neck: Symmetric, trachea midline, No thyromegaly. 4.CVS: +S1/S2, No murmurs or gallops. Peripheral pulses 2+ and equal in all extremities. Brisk capillary refill in all extremities. 5.RESP: Unlabored respiratory effort. Clear to auscultation bilaterally. No wheezes rales or rhonchi. Reproducible left-sided chest wall tenderness on the anterior aspect. No rash. No bruising. 6.GI: Soft, Nontender/Nondistended, No hepatosplenomegaly. No guarding or rebound. 7.MSK: Normocephalic/Atraumatic, Extremities w/o deformity or ttp No cyanosis or clubbing, Normal movement of all extremities. Minimal trace pitting edema on the right pretibial space, no edema on the left. No calf tenderness. 8.Skin: Warm, Dry. No rashes or lesions. 9.Neuro: integrity specialist II-XII grossly intact. Sensation grossly intact, no focal neurologic deficits. 10.Psych: (AAO) x3. Appropriate mood and affect Course Vital Signs Vital signs: Vital Signs Temperature 36.9 C 10/29/23 05:46 Pulse 58 L 10/29/23 05:46 Respiratory Rate 14 10/29/23 05:46 Blood Pressure 163/57 H 10/29/23 05:46 Pulse Oximetry 98 10/29/23 05:46 Temperature 36.9 C 10/29/23 05:46 Temperature Source Oral 10/29/23 05:46 Pulse 58 L 10/29/23 05:46 Respiratory Rate 16 10/29/23 05:56 Respiratory Effort Normal, Non-Labored 10/29/23 05:56 Respiratory Depth Normal 10/29/23 05:56 Respiratory Pattern Normal 10/29/23 05:56 Blood Pressure 163/57 H 10/29/23 05:46 Blood Pressure Position Supine 10/29/23 05:46 Pulse Oximetry 98 10/29/23 05:46 Oxygen Delivery Method Room Air 10/29/23 05:46 Oxygen Flow Rate 0 10/29/23 05:46 Medical Decision Making This is a 72-year-old female with a past medical history of fibromyalgia, hypertension, neuropathy, rheumatoid arthritis, cholesterol, obesity, who takes a daily aspirin, and has never smoked, with a family history positive for cardiac disease presents today for evaluation of chest pain. Patient states that she has some chronic achiness in her chest on a regular basis, today her chest hurt slightly more than normal she felt somewhat fatigued throughout the day. However at 3 AM she noticed that she had more chest pain than normal when she woke up, pain continued till 5 AM and she took a nitroglycerin with no improvement. EMS was called, and she was given 325 of aspirin and brought to the ER for further assessment. She describes the pain as sharp in the left chest radiating to her left shoulder. She denies any falls or trauma. She admits to pleuritic chest pain with deep breathing, but denies any long trips surgeries or procedures. She denies having pain like this before. No other complaints at this time. No other modifying factors. Exam demonstrates reproducible left-sided chest wall anterior tenderness. No bruising or signs of trauma or rash. No calf tenderness. Differential includes cardiac etiology/ACS, dissection seems clinically unlikely. Pulses are equal bilaterally. Musculoskeletal etiology is definitely on the differential with the reproducibility of her left-sided chest pain. PE is also of concern, however she does not have many risk factors. And certainly exacerbation of fibromyalgia may also be a component of her current symptomatology. Will get a D-dimer, chest x-ray, no need for additional nitro as the initial nitroglycerin did not make any change. Full dose aspirin has already been given. Will evaluate for these etiologies, monitor closely and reassess. Of note bedside echo shows no evidence of pericardial tamponade, severe heart failure, or major wall motion abnormalities. 6:43 AM Laboratory workup has returned, no white count, hemoglobin is 9.7, electrolytes and renal function normal. Troponin normal. proBNP normal. D-dimer is greater than 7500. This is certainly concerning. Will add a CTA for PE rule out. Patient remains hemodynamically stable. 7:[address] imaging. Patient will be signed out to my colleague Dr. Cheek for follow-up on imaging. Quality:[facility] Health Related Social Needs: No Data to Display PFSH All Active Problems (Updated 10/29/23 @ 07:31 by Zachary Boo DO) Chest discomfort (Acute) Takes dietary supplements (Acute) Costochondral pain (Acute) Fibromyalgia (Acute) COVID (Acute ~02/27/23) SOB (shortness of breath) on exertion (Acute) Sent to ED 12/18 by [facility] staff 2' SOB while talking! (then Dx with CP?) Impaired ambulation (Acute) Iron deficiency (Acute) 8/18/23 (8%), 06/2022 (13%), 08/2021 (5%) ..(Transf-Sat) Hx of epistaxis (Acute) (HFpEF) heart failure with preserved ejection fraction (Acute) per [facility] #1 (November-Dec 2022) .. but unclear Dx per #2 () ... Anemia (Chronic) iron infusions Respiratory failure (Acute) Hypokalemia (Acute) Hypertension (Chronic) Elevated BPs, with Hx HTN. Hx Rx per pt rpt? Starting lisinopril. Hypertensive retinopathy (Acute ~02/19/22) early, both Eyes Chest wall muscle strain (Acute) Ejection fraction < 50% (Acute) Ankle edema, bilateral (Acute) new onset Atypical chest pain (Acute) Neuropathy (Chronic) vs fibro? myalgias? Fibromyalgia muscle pain (Chronic) Incontinence in female (Acute) Complicated grief (Acute) Shoulder pain, right (Acute) Acute on chronic pain, injury? Depressive disorder, not elsewhere classified (Chronic 08/04/11) Stress due to illness of family member (Acute) Bro w/ lung CA; Sister with CAD, recent PM/Bypass); Sis w/ ut cancer... 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 Rheumatoid arthritis (Acute 09/20/13) R 2&3 MCP & TMP; Rheum Dr Bautista [facility] [place] [facility] (09/2014) Primary osteoarthritis involving multiple joints (Acute 08/04/11) s/p bilateral TKA, following with Ortho (09/09/17) Obesity, Class III, BMI 40-49.9 (morbid obesity) (Acute 08/04/11) Weight goal: 190 Myalgia and myositis, unspecified (Acute 08/04/11) Fibromyalgia Migraine (Acute 12/06/12) SINCE PUBERTY; ANTONIO-MENSTRUAL UNTIL MENOPAUSE; WORSE SINCE ~05/2011; Topirimate helps, Dr Fuller, Dr Cooper 2013 Please evaluate for BOTOX for worsening migraines Localized adiposity of lower extremity (Acute 10/16/17) [facility] Dr Carlos Veras, Plastic surgery of bilateral legs, fullness surrounding knees. 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) similar to her two sisters Cervicalgia (08/04/11) WORK INJURY 2004 shoulder injury Atrophic vaginitis (12/26/14) Arthritis (09/12/13) R hand index middle MCP; R foot 2 3 MTP Allergic rhinitis (12/26/13) year round, sarah goldenrod & milkweed, rx OTC Loratadine Surgical History S/P excision of lipoma (12/2018) [facility] [place]-thigh tumor excision Ligation of fallopian tube (11/12/75) Dr Castro, [facility] Replacement of total knee joint (09/02/11) R Knee Dr Ted Spicer R Knee revsion Dr Hernandez [facility] L knee Dr Hernandez [facility] Replacement of total knee joint (07/25/09) R Knee Dr Ted Spicer R Knee revsion Dr Hernandez [facility] L knee Dr Hernandez [facility] Replacement of total knee joint (05/25/06) R Knee Dr Ted Spicer R Knee revsion Dr Hernandez [facility] [facility] L knee Dr Hernandez [facility] section (05/06/75) Dr Grant, [facility] Abdominal hysterectomy (07/11/98) Dr Arellano, [facility] Cholecystectomy (02/10/12) Dr Funes Appendectomy (07/11/98) Dr Arellano, along with hysterectomy Family History Mother , breast ca at age 47. Tobacco dependence Breast cancer Lung cancer COPD (chronic obstructive pulmonary disease) Father , renal failure at age 62. Tobacco dependence COPD (chronic obstructive pulmonary disease) Atrial fibrillation Renal failure Sister Age: 69 Tobacco dependence Lung cancer COPD (chronic obstructive pulmonary disease) Bladder cancer Sister Age: 71 Tobacco dependence Diabetes Brother Age: 69 Tobacco dependence COPD (chronic obstructive pulmonary disease) Heart disease Paternal Grandmother Diabetes Social History Smoking/Tobacco Use Status: Never Smoking risk assessment performed?: Yes Alcohol Intake: current Alcohol Intake frequency: holidays/special occasions only Drug use: Never Substance use type: does not use Adopted: No Caregiver/Support person: No Foster care: No Household members: none Housing: house Number of Children: 1 number of grandchildren: 1 Education Level: master's degree Do you need help understanding health information?: Rarely current occupation: retired Pets and animals: Yes Sexually active: No Do you think of yourself as: straight/heterosexual Current gender identity: female What is your relationship status?: How often do you talk on the phone with friends or family?: three or more times per week How often do you get together with friends or relatives?: three or more times per week Do you belong to any clubs or organized social groups?: yes Panel score (0-1 are the most socially isolated patients): 2 What type of physical activity do you participate in: walking Duration: 30-45 minutes/day Frequency: 3-4 times per week Ellen/Mosque: Christian Special ellen needs: No Seatbelt use: always Helmet use: Yes Helmet use: never Drive intox or ride w/intox 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
[2023-10-29] MEDS: ACETAMINOPHEN 1,000 MG/100 ML BTL 400 MG IVPB (06:12)
[2023-10-29] MEDS: Lidocaine 5% Patch 1 PATCH TP (06:13)
[2023-10-29 06:20] LABS: PTT Activated 30.4 sec (23.6-32.8); Prothrombin Time 10.1 sec (9.1-11.1)
[2023-10-29 06:27] LABS: ALT 14 U/L (14-59); AST 16 U/L (15-37); Albumin 3.1 g/dL (3.4-5.0); Alkaline Phosphatase 74 U/L (46-116); Anion Gap 8.6 mmol/L (3-11); BUN 13 mg/dL (7-18); Bilirubin, Total 0.3 mg/dL (0.2-1.0); CO2 27.4 mmol/L (21.0-32.0); CREATININE 0.9 mg/dL (0.55-1.02); Calcium 9.3 mg/dL (8.5-10.1); Chloride 104 mmol/L (98-107); Estimated GFR 67.92 (mL/min/1.73m2); Glucose 106 mg/dL (74-106); NT-proBNP 276 pg/mL (<300); Sodium 140 mmol/L (136-145); Total Protein 7.8 g/dL (6.4-8.2); Troponin I < 50 ng/L (< or =60)
[2023-10-29 06:41] LABS: D-Dimer > 7500 ng/mlFEU (<500)
--- NOTE | 2023-10-29 07:58 | DI.CT_ITS ---
Exam(s) CT CHEST PE CTA EXAM: CT CHEST PE CTA CLINICAL HISTORY: left sided chest pain, elevated dimer. TECHNIQUE: Imaging Protocol: CT angiography of the chest was performed using pulmonary embolus torey col. Multi planar reconstructions were performed. CONTRAST MATERIAL: Intravenous: Omnipaque 350 Contrast volume: 100 cc COMPARISON: CR XR PORTABLE CHEST AP from 10/29/[address] scan of 12/16/[address] scan 10/08/2016 FINDINGS: CHEST: PULMONARY ARTERIES: There are no intraluminal filling defects to suggest acute pulmonary emboli.No ev idence of pulmonary infarction. LUNGS: There is a pleural based mass in the medial right lung apex which measures 2 cm wide by 2.1 cm AP by 1.7 cm craniocaudal. This noncalcified well-defined mass is not associated with adjacent rib destruction. Its border is non spiculated. There otherwise a few tiny 2-3 millimeter nodules in the right lung, specifically in the right middle lobe. No nodule seen in the opposite-left lung and the re are no confluent infiltrates nor pleural effusions. No findings in the trachea and mainstem bronc hi. MEDIASTINUM: There is no hilar nor mediastinal adenopathy. Right thyroid lobe unremarkable. There i s a nodule in the anterior aspect of the left thyroid lobe measuring approximately 1.2 x 1.2 cm.. No supraclavicular adenopathy. CARDIAC: Heart size is upper normal. There is no pericardial effusion.Caliber of the thoracic aorta is within normal limits. No evidence of aortic dissection. There is no significant shift of the inte rventricular septum. PARTIALLY VISUALIZED UPPERMOST ABDOMEN: There is a subtle 1 cm density in the upper right hepatic lob e which is probably cyst or hemangioma but cannot be assessed accurately on this type of study. Neve rtheless, unchanged from 12/16/2022 as well as 2017 CT scan and therefore most probably benign. Gall bladder again noted be surgically absent.. OSSEOUS: No significant osseous lesions.. IMPRESSION: 1. No evidence of acute pulmonary emboli. No evidence of pulmonary infarction.No pleural effusions a t this time, as were evident on the CT scan of 12/16/2022. 2. However, there is now evident a 2 x 2.1 x 1.7 cm pleural based mass in the medial right lung apex, suspicious for neoplasm. There is no associated overlying rib destruction. No supraclavicular nor adjacent mediastinal nor hilar adenopathy. 3. No evidence of aortic dissection nor pericardial effusion. 4. Other findings as above. Report called by myself to the ER physician. RADIATION DOSE DELIVERED: 454.02mGy.cm Total DLP DATA REPOSITORY: All CT scans at this facility are submitted to the National Radiology Data Registry (NRDR) Dose Index Registry (DIR) with the [employer] (ACR). RADIATION OPTIMIZATION: All CT scans at this facility use at least one of these dose optimization te chniques: automated exposure control; mA and/or kV adjustment per patient size (includes targeted exa ms where dose is matched to clinical indication); or iterative reconstruction.
[2023-10-29] MEDS: Normal Saline - Diluent 50 ML VIAL IJ (07:59)
[2023-10-29] MEDS: Omnipaque 350 MG/ML 100 ML BTL IJ (07:59)
--- NOTE | 2023-10-29 08:25 | DI.VRAD_ITS ---
PROCEDURE INFORMATION: Exam: XR Chest Exam date and time: 10/29/2023 6:37 AM Age: 72 years old Clinical indication: Pain; Left-sided; Additional info: Left sided chest pain TECHNIQUE: Imaging protocol: Radiologic exam of the chest. Views: 1 view. COMPARISON: CR XR PORTABLE CHEST AP 12/22/2022 2:13 PM FINDINGS: Lungs: Unremarkable. No consolidation. Pleural spaces: Unremarkable. No pleural effusion. No pneumothorax. Heart/Mediastinum: The cardiomediastinal silhouette is fairly stable in appearance. Bones/joints: Degenerative changes again involve the spine. IMPRESSION: No evidence for acute pulmonary disease. Dictated and Authenticated by: Darrell Hilario MD. Ordering:DONNELL Sharma MD
--- NOTE | 2023-10-29 08:32 | DI.VRAD_ITS ---
PROCEDURE INFORMATION: Exam: CTA Chest With Contrast Exam date and time: 10/29/2023 7:35 AM Age: 72 years old Clinical indication: Other: Left sided chest pain, elevated ddimer; Patient HX: History of dvt TECHNIQUE: Imaging protocol: Computed tomographic angiography of the chest with contrast. Exam focused on the arteries. 3D rendering (Not supervised by radiologist): MIP and/or 3D reconstructed images were created by the technologist. Contrast material: OMNIPAQUE 350; Contrast volume: 100 ml; Contrast route: INTRAVENOUS (IV); COMPARISON: CT CHEST PE ABD PELVIS W 12/16/2022 10:08 AM FINDINGS: Pulmonary arteries: No pulmonary embolus is identified. Aorta: The thoracic aorta is nonaneurysmal. Other arteries: Atherosclerotic vascular calcifications are again present. Lungs: There is a similar 3 mm right middle lobe nodule (image 4:29). Minor atelectasis and scarring is scattered bilaterally. The lungs are otherwise clear. The central airways appear patent. Pleural spaces: Unremarkable. No pneumothorax. No pleural effusion. Heart: Unremarkable. No cardiomegaly. No pericardial effusion. Coronary arteries: No coronary artery calcification is visualized. Lymph nodes: Unremarkable. No enlarged lymph nodes. Liver: The liver again contains 2 small hypodense lesions. Gallbladder and bile ducts: Cholecystectomy clips are again present. Bones/joints: Degenerative changes again involve the spine. Degenerative changes again involve the spine. Soft tissues: Unremarkable. IMPRESSION: No pulmonary embolus or other acute thoracic disease identified. Dictated and Authenticated by: Darrell Hilario MD. Ordering:DONNELL Sharma MD
[2023-10-29 09:15] LABS: Troponin I < 50 ng/L (< or =60)
--- NOTE | 2023-10-29 09:35 | ED.PROG_ITS ---
Date of service: 10/29/23 Time of Service: 09:[address] of the chest was interpreted by radiology: FINDINGS: Pulmonary arteries: No pulmonary embolus is identified. Aorta: The thoracic aorta is nonaneurysmal. Other arteries: Atherosclerotic vascular calcifications are again present. Lungs: There is a similar 3 mm right middle lobe nodule (image 4:29). Minor atelectasis and scarring is scattered bilaterally. The lungs are otherwise clear. The central airways appear patent. Pleural spaces: Unremarkable. No pneumothorax. No pleural effusion. Heart: Unremarkable. No cardiomegaly. No pericardial effusion. Coronary arteries: No coronary artery calcification is visualized. Lymph nodes: Unremarkable. No enlarged lymph nodes. Liver: The liver again contains 2 small hypodense lesions. Gallbladder and bile ducts: Cholecystectomy clips are again present. Bones/joints: Degenerative changes again involve the spine. Degenerative changes again involve the spine. Soft tissues: Unremarkable. IMPRESSION: 1. No evidence of acute pulmonary emboli. No evidence of pulmonary infarction.No pleural effusions at this time, as were evident on the CT scan of 12/16/2022. 2. However, there is now evident a 2 x 2.1 x 1.7 cm pleural based mass in the medial right lung apex, suspicious for neoplasm. There is no associated overlying rib destruction. No supraclavicular nor adjacent mediastinal nor hilar adenopathy. 3. No evidence of aortic dissection nor pericardial effusion. 4. Other findings as above. Initial troponin and delta troponin negative. Given pleuritic nature, reproducibility, and negative troponin, presentation is not consistent with ACS. Suspect musculoskeletal etiology. Patient will require close follow-up of pulmonary mass. I called and spoke with the patient's PCP, Dr. Urbina, discussed ED course including diagnostics, she will arrange for outpatient follow-up and further diagnostics regarding pulmonary mass. All results and discharge instructions discussed with the patient. Lab Data Lab results reviewed: Yes I reviewed the patient's lab results. Labs: Laboratory Tests Range/Units 10/29/23 10/29/23 06:00 08:55 WBC (4.4-10.8) 10^3/uL 6.86 RBC (3.93-5.22) 10^6/uL 3.37 L Hgb (11.2-15.7) g/dL 9.7 L Hct (36.0-46.0) % 30.1 L MCV (80-95) fL 89 MCH (27.0-33.0) pg 28.8 MCHC (32.0-36.0) % 32.2 RDW (11.7-14.6) % 13.5 Plt Count (130-400) 10^3/uL 306 MPV (8.0-11.0) fL 9.9 Immature Gran % % 0.3 Neutrophils % % 65.9 Lymphocytes % % 20.6 Monocytes % % 9.6 Eosinophils % % 2.9 Basophils % % 0.7 Nucleated RBC % (0.0-0.3) % 0.0 Absolute Neutrophils (1.2-6.7) 10^3/uL 4.52 Absolute Lymphocytes (1.2-3.4) 10^3/uL 1.41 Absolute Monocytes (0.1-0.8) 10^3/uL 0.66 Absolute Eosinophils (0.0-0.7) 10^3/uL 0.20 Absolute Basophils (0.0-0.2) 10^3/uL 0.05 PT (9.1-11.1) sec 10.1 INR (0.9-1.1) 1.0 APTT (23.6-32.8) sec 30.4 D-Dimer (<500) ng/mlFEU > 7500 H Sodium (136-145) mmol/L 140 Potassium (3.5-5.1) mmol/L 4.0 Chloride (98-107) mmol/L 104 Carbon Dioxide (21.0-32.0) mmol/L 27.4 Anion Gap (3-11) mmol/L 8.6 BUN (7-18) mg/dL 13 Creatinine (0.55-1.02) mg/dL 0.9 Est GFR (CKD-EPI 2020) (mL/min/1.73m2) 67.92 Glucose (74-106) mg/dL 106 Calcium (8.5-10.1) mg/dL 9.3 Total Bilirubin (0.2-1.0) mg/dL 0.3 AST (15-37) U/L 16 ALT (14-59) U/L 14 Alkaline Phosphatase (46-116) U/L 74 Troponin I (< or =60) ng/L < 50 < 50 NT-Pro-B Natriuret Pep (<300) pg/mL 276 Total Protein (6.4-8.2) g/dL 7.8 Albumin (3.4-5.0) g/dL 3.1 L Quality:SDOH Health Related Social Needs: No Data to Display Sign Out Sign Out Data: Sign Out Comment: Chest pain, notably elevated D-dimer. Follow-up on delta troponin and CTA Last updated by Zachary Boo DO at 10/29/23 07:33 Discharge Plan Disposition Patient Disposition: Home Condition: Stable Discharge Details Clinical Impression: Chest discomfort, Anemia, Mass of right lung Primary Care Provider: Tameka Ware ED Provider: Colby Cheek Home Meds and New Rx's Prescriptions: Continued (DME) Incontinence pads MED See Rx Instructions .Route .MEDSUPPLY Qty: 150 0RF Rx Instructions: As directed sennosides-docusate sodium [Senna-S] 8.6-50 mg tablet 1 tab-cap PO DAILY Qty: 90 3RF (DME) RSV & Shingles See Rx Instructions .Route .MEDSUPPLY Qty: 1 0RF Rx Instructions: Can you please call patient? She has not internet to get online to schedule. epinephrine [EpiPen 2-Leon] 0.3 mg/0.3 mL auto-injector 0.3 mg IM PRN Qty: 2 1RF Rx Instructions: for allergic reaction fluticasone propionate 50 mcg/actuation spray,suspension 1 spray intranasal .COMPLEX Qty: 16 1RF Rx Instructions: 1 spray intranasal; nitroglycerin 0.3 mg tablet, sublingual 0.3 mg sublingual Q5-15M PRN (Reason: chest pain) Qty: 30 1RF Rx Instructions: As best dispensed (#); Call 911 if > 3 doses per episode pregabalin 150 mg capsule 150 mg PO BID Qty: 60 1RF Rx Instructions: Increase to 150mg twice/day prevagen See Rx Instructions .ROUTE .COMPLEX Qty: 90 1RF Rx Instructions: Supplement Trial, as recommended by pharmacist; Supplement Trial Zyrtec 10 mg capsule 10 mg PO DAILY Qty: 90 3RF Rx Instructions: OTC, taking daily now vs just seasonally naproxen sodium 220 mg capsule 220 mg PO HS Hold Instructions: holding qHS 01/08/23 Patient Comments: Pt reports taking, has one left. Unclear if supposed to be taking NSAIDS, may need education.HE (DME) Lipoedema Pedal Machine See Rx Instructions .Route .MEDSUPPLY Qty: 1 0RF Rx Instructions: As discussed with [facility] cholecalciferol (vitamin D3) 250 mcg (10,000 unit) capsule 250 mcg PO QWEEK Qty: 10 0RF Rx Instructions: High dose WEEKLY, then return to 1,000 units/daily multivitamin [Once Daily] 1 EACH tablet 1 ea PO DAILY Rx Instructions: every other day. Super B Complex + C 150 mg tablet 1 tab PO DAILY Rx Instructions: every other day magnesium oxide 400 mg magnesium capsule 400 mg PO DAILY Qty: 90 3RF Rx Instructions: Take (1) every evening .. helps with the low potassium, and may help with headache, muscle pains acetaminophen [Arthritis Pain Relief (acetam)] 650 mg tablet extended release 650 mg PO .once a day PRN (Reason: fever) Qty: 90 1RF diclofenac sodium 1 % gel 4 g topical QID Qty: 100 2RF Rx Instructions: apply to single foot, @ top of foot @ around ankles omeprazole 40 mg capsule,delayed release(DR/EC) 40 mg PO BID Qty: 180 3RF Rx Instructions: BID per GI ibuprofen 800 mg tablet 800 mg PO Q8H MDD 2400mg PRN (Reason: fever or pain) Qty: 100 3RF Rx Instructions: Use sparingly for arthritic pain WITH FOOD (instead of Calebrex) ibuprofen 800 mg tablet 800 mg PO Q8H MDD 2400mg PRN (Reason: fever or pain) Qty: 100 3RF Rx Instructions: sparingly for arthritic pain WITH FOOD (no longer taking celebrex) furosemide 20 mg tablet 20 mg PO DAILY Qty: 90 3RF Rx Instructions: daily PRN wt gain > 3 lb per disc w/ pcp/cc lisinopril 10 mg tablet 10 mg PO BID Qty: 180 3RF Rx Instructions: Continue once a day, with BP checks (possible need for afternoon tab if BP fluctuates) Nurtec ODT 75 mg tablet,disintegrating 75 mg PO ONCE PRN (Reason: migraine headache) Qty: 30 1RF Rx Instructions: Continue atorvastatin 20 mg tablet 20 mg PO QHS Qty: 90 1RF Rx Instructions: Re-check Lipid Panel citalopram 10 mg tablet 10 mg PO DAILY Qty: 90 3RF Rx Instructions: Take with 20mg tablet for a total of 30mg daily. 09/24/21 citalopram 20 mg tablet 20 mg PO DAILY Qty: 90 3RF Rx Instructions: Take with 10mg tablet for a total of 30mg daily. 09/24/21 albuterol sulfate 90 mcg/actuation aerosol powdr breath activated 2 inh inhalation Q6H PRN (Reason: shortness of breath or wheezing) Qty: 1 1RF Rx Instructions: As per insurance coverage (DME) Leg-XR CISER-PRO Delux See Rx Instructions .Route .MEDSUPPLY Qty: 1 0RF Rx Instructions: As directed Discharge Instructions Instructions: Chest Pain (ED) Additional Instructions: CT of your chest revealed a right lung mass that will require outpatient follow- up. This has been communicated to your primary care physician who will help arrange timely follow-up. Please call your PCP to schedule an appointment. Return to the ER immediately for any worsening or new concerning symptoms. Referrals: Tameka Ware DO [Primary Care Provider] - Discharge Data Discharge Date/Time-TO BE ENTERED AT DEPARTURE: 10/29/23 10:09
== END 2023-10-29 10:09 | disposition home or self-care (01) ==
PROVIDERS: Student in an Organized Health Care Education/Training Program; Emergency Provider Student in an Organized Health Care Education/Training Program; PCP Student in an Organized Health Care Education/Training Program
DX: R07.89 Other chest pain (principal); R91.8 Other nonspecific abnormal finding of lung field; I10 Essential (primary) hypertension; D64.9 Anemia, unspecified
CPT/HCPCS: 00123; 36415; 71275; 80053; 93005; 93308; 96365; 99285; 71045; 83880; 84484; 85025; 85379; 85610; 85730; 93010; 99283; J0131; J3490

== ENCOUNTER 2024-01-21 11:02 | Outpatient (CLI) | payer OTHER, MEDICAID, SELFPAY | END 2024-01-21 11:03 | disposition home or self-care (01) | PROVIDERS: PCP Student in an Organized Health Care Education/Training Program; Visit Provider Student in an Organized Health Care Education/Training Program | DX: R00.1 Bradycardia, unspecified (principal); R06.09 Other forms of dyspnea; R07.89 Other chest pain; R55 Syncope and collapse | CPT/HCPCS: 93246 ==

== ENCOUNTER 2024-02-11 08:41 | Outpatient (CLI) | payer OTHER, MEDICAID, SELFPAY ==
--- NOTE | 2024-02-11 09:36 | W.CARDEVENT ---
Date of service: 02/11/24 Time of Service: 09:42 Cardiac Event Recorder Referring Provider:: Tameka Ware Indications:: Bradycardia syncope chest pain Cardiac Event Note: This is a cardiac event monitor. Patient was monitored for 12 days and 51 minutes Rhythm throughout was sinus with an average heart rate of 58. Minimum was 39, maximum 100 There were rare ventricular ectopic beats There were frequent atrial premature beats Self-limited atrial runs occurred. The longest of these was 12 beats in duration. There was no atrial fibrillation, no high-grade AV block, no pauses greater than 3 seconds . No symptoms were reported and was listed
== END 2024-02-11 08:42 | disposition home or self-care (01) ==
LOC: CARDOPNVT 08:41
PROVIDERS: PCP Student in an Organized Health Care Education/Training Program; Visit Provider Internal Medicine Cardiovascular Disease
DX: I49.1 Atrial premature depolarization (principal); R55 Syncope and collapse
CPT/HCPCS: 93248

== ENCOUNTER 2024-02-25 15:14 | Outpatient (REF) | payer OTHER, MEDICAID, SELFPAY ==
[2024-02-25 19:06] LABS: HCT 31.9 % (36.0-46.0); MCH 28.4 pg (27.0-33.0); MCHC 31.3 % (32.0-36.0); MCV 91 fL (80-95); MPV 10.8 fL (8.0-11.0); Platelet Count 362 10^3/uL (130-400); RBC 3.52 10^6/uL (3.93-5.22); RDW 13.3 % (11.7-14.6); RDW-SD 43.8 fL; WBC 6.48 10^3/uL (4.4-10.8)
[2024-02-25 19:15] LABS: Iron 28 ug/dL (50-170); Total Iron Binding Capacity 286 ug/dL (250-450); Transferrin Sat 10 % (15-50)
[2024-02-25 19:27] LABS: Anion Gap 8.7 mmol/L (3-11); BUN 9 mg/dL (7-18); CO2 27.3 mmol/L (21.0-32.0); CREATININE 0.9 mg/dL (0.55-1.02); Calcium 9.4 mg/dL (8.5-10.1); Chloride 103 mmol/L (98-107); Ferritin 144 ng/mL (8-252); Glucose 113 mg/dL (74-106); Sodium 139 mmol/L (136-145)
[2024-02-25 21:27] LABS: Lab Add On Test DONE
[2024-02-25 22:38] LABS: Vitamin B12 310 pg/mL (193-986)
[2024-02-25 22:39] LABS: Folate > 20.0 ng/mL (8.6-20.0)
[2024-02-25 23:00] LABS: Hemoglobin A1C 5.7 % (<5.7)
== END 2024-02-25 15:15 | disposition home or self-care (01) ==
LOC: LBN 15:14
PROVIDERS: PCP Student in an Organized Health Care Education/Training Program; Visit Provider Student in an Organized Health Care Education/Training Program
DX: R06.02 Shortness of breath (principal); I50.30 Unspecified diastolic (congestive) heart failure; D64.9 Anemia, unspecified; E61.1 Iron deficiency; I10 Essential (primary) hypertension; R73.09 Other abnormal glucose; Z76.89 Persons encountering health services in other specified circumstances
CPT/HCPCS: 80048; 85027; 82607; 82728; 82746; 83036; 83540; 83550

== ENCOUNTER 2024-02-29 01:05 | Outpatient (CLI) | payer OTHER, MEDICAID, SELFPAY ==
--- NOTE | 2024-02-29 07:45 | DI.US_ITS ---
Exam(s) US THYROID EXAM: US THYROID CLINICAL HISTORY: evaluate left THYROID AVIDITY,thyroid disorder,e07.9. TECHNIQUE: Ultrasound thyroid performed using standard protocol. COMPARISON: US POCUS EXAM from 10/29/[address] CHEST PE CTA from 10/29/2023 FINDINGS: RIGHT THYROID LOBE: Measures 2.0 cm AP x 1.7 cm wide x 3.2 cm craniocaudal There are no nodules in the right thyroid lobe. ISTHMUS: Normal thickness. There are no nodules in the isthmus. LEFT THYROID LOBE: Measures 2.6 cm AP x 2.1 wide x 3.3 cm craniocaudal There is a single nodule in the left lobe which corresponds to finding on recent CT scan. This nodul e is located anteriorly and measures 2.1 x 1.0 x 1.2 cm. Grading characteristics of this nodule are as follows Composition: Solid-2 points Echogenicity: Mildly hypoechoic compared to surrounding gland-2 points Shape: Wider than taller-0 points Margin: Smooth-0 points Echogenic Foci: None-0 points Total points for this nodule: 4 ACR Ti-Rads Category: 4 This TR 4 level nodule requires ultrasound-guided FNA as it measures greater than 1.5 cm LYMPH NODES: Small benign-appearing lymph nodes noted in both sides the neck. There is no significan t adenopathy. IMPRESSION: 1. There is a 2.1 x 1.0 x 1.2 cm solid nodule in the left thyroid lobe, this corresponding to what is seen incidentally on recent CT scan. This is a TR 4 level nodule. It requires biopsy as it measure s greater than 1.5 cm 2. No other thyroid nodules identified 3. There is no significant lymphadenopathy. DATA REPOSITORY:
== END 2024-02-29 01:25 ==
LOC: DI 01:05
PROVIDERS: PCP Student in an Organized Health Care Education/Training Program; Visit Provider Student in an Organized Health Care Education/Training Program
DX: E04.1 Nontoxic single thyroid nodule (principal)
CPT/HCPCS: 76536

== ENCOUNTER 2024-10-21 00:55 | Outpatient (CLI) | payer MEDICARE, MEDICAID, SELFPAY ==
[2024-10-21 08:53] LABS: HCT 32.1 % (36.0-46.0); HGB 10.3 g/dL (11.2-15.7); MCH 28.6 pg (27.0-33.0); MCHC 32.1 % (32.0-36.0); MCV 89 fL (80-95); MPV 10.7 fL (8.0-11.0); Platelet Count 284 10^3/uL (130-400); RDW 13.8 % (11.7-14.6); RDW-SD 45.4 fL
[2024-10-21 09:47] LABS: ALT 12 U/L (14-59); AST 20 U/L (15-37); Albumin 3.2 g/dL (3.4-5.0); Alkaline Phosphatase 86 U/L (46-116); Anion Gap 8.9 mmol/L (3-11); BUN 21 mg/dL (7-18); Bilirubin, Total 0.2 mg/dL (0.2-1.0); CO2 25.1 mmol/L (21.0-32.0); CREATININE 0.9 mg/dL (0.55-1.02); Calcium 9.4 mg/dL (8.5-10.1); Calculated LDL 160 mg/dL (<100); Chloride 105 mmol/L (98-107); Cholesterol 240 mg/dL (<200); Ferritin 105 ng/mL (8-252); Glucose 101 mg/dL (74-106); HDL Cholesterol 60 mg/dL (>or=50); Potassium 4.3 mmol/L (3.5-5.1); Sodium 139 mmol/L (136-145); TSH (W/Ref FT4) 3.21 uIU/mL (0.36-3.74); Total Protein 7.8 g/dL (6.4-8.2); Triglyceride 102 mg/dL (<150); Vitamin B12 253 pg/mL (193-986)
[2024-10-21 17:19] LABS: Lab Add On Test DONE
== END 2024-10-21 00:56 | disposition home or self-care (01) ==
LOC: LBO 00:55
PROVIDERS: PCP Nurse Practitioner Family; Visit Provider Nurse Practitioner Family
DX: E78.5 Hyperlipidemia, unspecified (principal); I10 Essential (primary) hypertension; E61.1 Iron deficiency; E07.9 Disorder of thyroid, unspecified; D64.9 Anemia, unspecified
CPT/HCPCS: 36415; 80053; 80061; 85027; 82607; 82728; 84443

== ENCOUNTER 2024-10-23 16:52 | Emergency (ER) | payer MEDICARE, MEDICAID, SELFPAY ==
[2024-10-23] VITALS (11 sets, daily range): BP systolic 89–160; BP diastolic 29–109; PULSE 43–55; RESP 8–19; TEMP 36.9; O2SAT 97–100
--- NOTE | 2024-10-23 16:30 | RT.EKG_ITS ---
APPROVED REPORT Exam: Resting ECG Reason for Exam: Chest Pain Patient Location: E HR:57 bpm ECG Measurements Heart Rate 57 AXIS WI 153 P 34 QRSd 96 QRS 25 QT 442 T 27 QTc 419 Conclusion Sinus bradycardia at a rate of 57 with PACs without acute ischemic change
--- NOTE | 2024-10-23 17:00 | DI.RAD_ITS ---
Exam(s) XR SHOULDER LT COMPLETE 2+V EXAM: XR SHOULDER LT COMPLETE 2+V CLINICAL HISTORY: pain after fall from syncope. TECHNIQUE: 2D digital imaging was performed. COMPARISON: No exams were available for comparison FINDINGS: Four views No evidence of acute fracture nor dislocation nor abnormal soft tissue calcifications. No obvious de generative changes in the glenohumeral joint. Moderate degenerative changes in the AC joint. No cla vicle fracture. No osseous lesions. IMPRESSION: No fractures. Degenerative changes in the left AC joint noted. DATA REPOSITORY: RADIATION DOSE DELIVERED:
--- NOTE | 2024-10-23 17:00 | DI.CT_ITS ---
Exam(s) CT HEAD CERVICAL SPINE WO EXAM: CT HEAD CERVICAL SPINE WO CLINICAL HISTORY: pain after a fall from syncope. TECHNIQUE: Imaging Protocol: Axial computed tomography images with coronal and sagittal reformatted images were created and reviewed COMPARISON: CT CT HEAD CERVICAL SPINE WO from 12/16/2022 FINDINGS: BRAIN: There are no skull fractures nor fluid in the visualized paranasal sinuses. There is no evidence of intracranial hemorrhage, mass effect, or shift of midline structures. There are no extra-axial fluid collections. The ventricles are not enlarged or shifted and there is no blo od within the ventricular system nor within the basal cisterns. CERVICAL SPINE: There is no evidence of fracture nor listhesis. No significant prevertebral soft tissue swelling. Multilevel advanced chronic degenerative disc disease space narrowing. No listhesis. Mild-moderate facet arthropathy. There is no significant facet joint malalignment. No significant osseous lesions evident. IMPRESSION: No acute intracranial findings on this noninfused CT scan of the brain. No evidence of cervical spine fracture, malalignment, nor acute compromise of the cervical spinal can al. Multilevel chronic degenerative disc disease. Report called by myself to ER physician 10/23/2024 at 5:34 p.m. RADIATION DOSE DELIVERED: 1,203.38mGy.cm Total DLP DATA REPOSITORY: All CT scans at this facility are submitted to the National Radiology Data Registry (NRDR) Dose Index Registry (DIR) with the [employer] (A[employer]). RADIATION OPTIMIZATION: All CT scans at this facility use at least one of these dose optimization te chniques: automated exposure control; mA and/or kV adjustment per patient size (includes targeted exa ms where dose is matched to clinical indication); or iterative reconstruction.
--- NOTE | 2024-10-23 17:00 | DI.RAD_ITS ---
Exam(s) XR CHEST 2V PA LATERAL EXAM: XR CHEST 2V PA LATERAL CLINICAL HISTORY: pain after fall, syncope. TECHNIQUE: 2D digital imaging was performed. CR,XR XR PORTABLE CHEST AP from 10/29/[address] HEAD CERVICAL SPINE WO from 10/23/2024 FINDINGS: 2 views: Heart size is upper normal. There is a mass density in the right paratracheal region, this correspon ding to incidental finding on cervical spine CT scan today. Requires further investigation. Left lung is clear. No pleural effusions. No obvious fractures. IMPRESSION: Abnormal right paratracheal density measuring approximately 4.5 x 3 cm. Follow-up CT scan recommende d to rule out neoplasm. DATA REPOSITORY: RADIATION DOSE DELIVERED:
[2024-10-23 17:09] LABS: Abs Immature Grans 0.01 10^3/uL (0.0-0.06); Absolute Basophil Count 0.04 10^3/uL (0.0-0.2); Absolute Eosinophil Count 0.18 10^3/uL (0.0-0.7); Absolute Lymphocyte Count 1.01 10^3/uL (1.2-3.4); Absolute Monocyte Count 0.54 10^3/uL (0.1-0.8); Absolute Neutrophil Count 4.15 10^3/uL (1.2-6.7); Basophils % 0.7 %; HCT 32.4 % (36.0-46.0); HGB 10.2 g/dL (11.2-15.7); Immature Grans % 0.2 %; MCH 27.9 pg (27.0-33.0); MCHC 31.5 % (32.0-36.0); MCV 89 fL (80-95); MPV 10.6 fL (8.0-11.0); Monocytes % 9.1 %; Platelet Count 294 10^3/uL (130-400); RBC 3.65 10^6/uL (3.93-5.22); RDW 13.8 % (11.7-14.6); RDW-SD 45.2 fL; WBC 5.93 10^3/uL (4.4-10.8)
--- NOTE | 2024-10-23 17:11 | W.ED.GENAD ---
Discharge Plan Disposition Patient Disposition: Home Condition: Stable Discharge Details Clinical Impression: Syncope and collapse, Contusion of shoulder, Chest wall contusion Primary Care Provider: Mayda Rockwell ED Provider: Christina Santana Home Meds and New Rx's Prescriptions: No Action (DME) Incontinence pads MED See Rx Instructions .Route .MEDSUPPLY Qty: 150 0RF Rx Instructions: As directed sennosides-docusate sodium [Senna-S] 8.6-50 mg tablet 1 tab-cap PO DAILY Qty: 90 3RF (DME) RSV & Shingles See Rx Instructions .Route .MEDSUPPLY Qty: 1 0RF Rx Instructions: Can you please call patient? She has not internet to get online to schedule. Zyrtec 10 mg capsule 10 mg PO DAILY Qty: 90 3RF atorvastatin 20 mg tablet See Rx Instructions .ROUTE .COMPLEX Qty: 90 1RF Dose Instruction: TAKE ONE TABLET BY MOUTH AT BEDTIME RE-CHECK LIPID PANEL Rx Instructions: TAKE ONE TABLET BY MOUTH AT BEDTIME RE-CHECK LIPID PANEL naproxen sodium 220 mg capsule 220 mg PO HS Qty: 30 1RF Rx Instructions: Take with food, monitor for gastritis, reflux, elevated blood pressure. nitroglycerin 0.3 mg tablet, sublingual 0.3 mg sublingual Q5-15M PRN (Reason: chest pain) Qty: 30 1RF Rx Instructions: As best dispensed (#); Call 911 if > 3 doses per episode ferrous sulfate 325 mg (65 mg iron) tablet,delayed release (DR/EC) 325 mg PO Q OTHER DAY Qty: 45 3RF (DME) Lipoedema Pedal Machine See Rx Instructions .Route .MEDSUPPLY Qty: 1 0RF Rx Instructions: As discussed with [facility] budesonide-formoterol 160-4.5 mcg/actuation HFA aerosol inhaler 2 puff inhalation BID Patient Comments: [facility] Pulmonology note 02/23/24, RX'd BREYNA d/t insurance wouldn't cover Symbicort.HE cholecalciferol (vitamin D3) 250 mcg (10,000 unit) capsule 250 mcg PO QWEEK Qty: 10 0RF Rx Instructions: High dose WEEKLY, then return to 1,000 units/daily pregabalin 150 mg capsule 150 mg PO BID Qty: 60 1RF Rx Instructions: Increase to 150mg twice/day multivitamin [Once Daily] 1 EACH tablet 1 ea PO DAILY Rx Instructions: every other day. Super B Complex + C 150 mg tablet 1 tab PO DAILY Rx Instructions: every other day magnesium oxide 400 mg magnesium capsule 400 mg PO DAILY Qty: 90 3RF Rx Instructions: Take (1) every evening .. helps with the low potassium, and may help with headache, muscle pains diclofenac sodium 1 % gel 4 g topical QID Qty: 100 2RF Rx Instructions: apply to single foot, @ top of foot @ around ankles Nurtec ODT 75 mg tablet,disintegrating 75 mg PO ONCE PRN (Reason: migraine headache) Qty: 30 1RF Rx Instructions: Continue albuterol sulfate 90 mcg/actuation aerosol powdr breath activated 2 inh inhalation Q6H PRN (Reason: shortness of breath or wheezing) Qty: 1 1RF Rx Instructions: As per insurance coverage (DME) Leg-XR CISER-PRO Delux See Rx Instructions .Route .MEDSUPPLY Qty: 1 0RF Rx Instructions: As directed fluticasone propionate 50 mcg/actuation spray,suspension 1 spray intranasal QHS Qty: 16 1RF Rx Instructions: ! spray, each nostril isosorbide mononitrate 30 mg tablet extended release 24 hr 30 mg PO DAILY Patient Comments: Started in 04/14/2024 by [facility] Cardiology omeprazole 40 mg capsule,delayed release(DR/EC) 40 mg PO BID Qty: 180 3RF Rx Instructions: BID per GI furosemide 20 mg tablet 20 mg PO DAILY Qty: 90 3RF Rx Instructions: daily PRN wt gain > 3 lb per disc w/ pcp/cc citalopram 10 mg tablet 10 mg PO DAILY Qty: 90 3RF Rx Instructions: Take with 20mg tablet for a total of 30mg daily. 09/24/21 citalopram 20 mg tablet 20 mg PO DAILY Qty: 90 3RF Rx Instructions: Take with 10mg tablet for a total of 30mg daily. 09/24/21 ibuprofen 800 mg tablet 800 mg PO Q8H MDD 2400mg PRN (Reason: fever or pain) Qty: 100 3RF Rx Instructions: Use sparingly for arthritic pain WITH FOOD (instead of Calebrex) lisinopril 10 mg tablet See Rx Instructions .ROUTE .COMPLEX Qty: 180 3RF Dose Instruction: TAKE ONE TABLET BY MOUTH TWICE A DAY CONTINUE ONCE A DAY WITH FOR BLOOD PRESSURE CHECKES (POSSIBLE NEED FOR AFTERNOON TABLET IF FOR BLOOD PRESSURE FLUCTUATES) Rx Instructions: TAKE ONE TABLET BY MOUTH TWICE A DAY CONTINUE ONCE A DAY WITH FOR BLOOD PRESSURE CHECKES (POSSIBLE NEED FOR AFTERNOON TABLET IF FOR BLOOD PRESSURE FLUCTUATES) epinephrine 0.3 mg/0.3 mL auto-injector See Rx Instructions .ROUTE .COMPLEX Qty: 2 1RF Dose Instruction: INJECT 0.3ML INTRAMUSCULARLY NEEDED FOR BEE STING FOR ALLERGIC REACTION Rx Instructions: INJECT 0.3ML INTRAMUSCULARLY NEEDED FOR BEE STING FOR ALLERGIC REACTION (DME) Life Alert GPS Necklace L kit See Rx Instructions .Route .MEDSUPPLY Qty: 1 0RF Rx Instructions: . Discharge Instructions Instructions: Minor Contusion ED, Fainting, Adult ED Additional Instructions: Please follow-up with your primary care provider and research center partner. In the meantime if you do get worse or develop any new or concerning symptoms please return to the emergency department. HPI General Date/Time Provider Initiated Documentation: 10/23/24 16:59. HPI Narrative: The patient is a 75-year-old female with a history of arthritis, CVA with left-sided weakness, recurrent syncopal episodes since May who comes the emergency department for syncopal episode. Reports around 4:00 this afternoon she was getting food out of the microwave. Reports she put it on the shelf by the sink and step toward the shelf by the sink when she suddenly blacked out. Reports this is how her syncopal episodes have been occurring since May. 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 Reports that she was unconscious which she thinks may be a couple minutes. Reports that because of her left-sided weakness she had a hard time getting up so EMS was called. Denies taking any blood thinning medication. Reports that since she had syncopal episode her chest hurts in the middle, left shoulder, left side of her neck. Reports she was at her baseline health prior. Admits to normal appetite without any nausea or vomiting. Denies changes in bowel habits. Denies urinary symptoms. Denies any fevers or chills with this. Related Data Home Medications ?Medication ?Instructions ?Recorded ?Confirmed multivitamin (Once Daily tablet) 1 ea PO DAILY 07/27/12 10/23/24 vitamin B comp with C no.4 150 mg 1 tab PO DAILY 03/03/18 10/23/24 tablet (Super B Complex + C) Incontinence pads #150 ea 01/11/21 10/23/24 sennosides 8.6 mg-docusate sodium 1 tab-cap PO DAILY #90 tabs 09/24/21 10/23/24 50 mg tablet (Senna-S) magnesium oxide 400 mg PO DAILY hypokal #90 05/01/22 10/23/24 tab-caps Lipoedema Pedal Machine #1 ea 11/04/22 10/23/24 diclofenac sodium 1 % topical gel 4 g topical QID acute 01/13/23 10/23/24 musculo-skeletal pain #100 grams RSV & Shingles #1 ea 03/26/23 10/23/24 albuterol sulfate 90 mcg/actuation 2 inh inhalation Q6H PRN shortness 09/04/23 10/23/24 breath activated powder inhaler of breath or wheezing #1 ea rimegepant 75 mg disintegrating 75 mg PO ONCE PRN migraine 09/04/23 10/23/24 tablet (Nurtec ODT) headache #30 tabs Leg-XR CISER-PRO Delux #1 ea 10/21/23 10/23/24 budesonide-formoterol HFA 160 2 puff inhalation BID 02/25/24 10/23/24 mcg-4.5 mcg/actuation aerosol inhaler cholecalciferol (vitamin D3) 250 250 mcg PO QWEEK #10 caps 03/09/24 10/23/24 mcg (10,000 unit) capsule pregabalin 150 mg capsule 150 mg PO BID #60 caps 03/09/24 10/23/24 fluticasone propionate 50 1 spray intranasal QHS #16 mL 04/22/24 10/23/24 mcg/actuation nasal spray,suspension isosorbide mononitrate 30 mg 30 mg PO DAILY 05/03/24 10/23/24 tablet,extended release 24 hr naproxen sodium 220 mg capsule 220 mg PO HS #30 caps 05/03/24 10/23/24 omeprazole 40 mg capsule,delayed 40 mg PO BID #180 caps 12/14/24 06/01/25 release furosemide 20 mg tablet 20 mg PO DAILY #90 tabs 05/24/24 10/23/24 citalopram 10 mg tablet 10 mg PO DAILY #90 tabs 06/02/24 10/23/24 citalopram 20 mg tablet 20 mg PO DAILY #90 tabs 06/02/24 10/23/24 ibuprofen 800 mg tablet 800 mg PO Q8H PRN fever or pain 06/30/24 10/23/24 #100 tab-caps lisinopril 10 mg tablet See Rx Instructions .Route 07/29/24 10/23/24 .COMPLEX #180 tabs ferrous sulfate 325 mg (65 mg 325 mg PO Q OTHER DAY anemia #45 08/26/24 10/23/24 iron) tablet,delayed release tabs nitroglycerin 0.3 mg sublingual 0.3 mg sublingual Q5-15M PRN chest 08/26/24 10/23/24 tablet pain #30 tabs epinephrine 0.3 mg/0.3 mL See Rx Instructions .Route 10/18/24 10/23/24 injection, auto-injector .COMPLEX #2 mL Life Alert GPS Necklace #1 ea 10/21/24 10/23/24 atorvastatin 20 mg tablet See Rx Instructions .Route 10/21/24 10/23/24 .COMPLEX #90 tabs cetirizine 10 mg capsule (Zyrtec) 10 mg PO DAILY #90 caps 10/21/24 10/23/24 Previous Rx's ?Medication ?Instructions ?Recorded Incontinence pads #150 ea 01/11/21 sennosides 8.6 mg-docusate sodium 1 tab-cap PO DAILY #90 tabs 09/24/21 50 mg tablet (Senna-S) magnesium oxide 400 mg PO DAILY hypokal #90 05/01/22 tab-caps Lipoedema Pedal Machine #1 ea 11/04/22 diclofenac sodium 1 % topical gel 4 g topical QID acute 01/13/23 musculo-skeletal pain #100 grams RSV & Shingles #1 ea 03/26/23 albuterol sulfate 90 mcg/actuation 2 inh inhalation Q6H PRN shortness 09/04/23 breath activated powder inhaler of breath or wheezing #1 ea rimegepant 75 mg disintegrating 75 mg PO ONCE PRN migraine 09/04/23 tablet (Nurtec ODT) headache #30 tabs Leg-XR CISER-PRO Delux #1 ea 10/21/23 cholecalciferol (vitamin D3) 250 250 mcg PO QWEEK #10 caps 03/09/24 mcg (10,000 unit) capsule pregabalin 150 mg capsule 150 mg PO BID #60 caps 03/09/24 fluticasone propionate 50 1 spray intranasal QHS #16 mL 04/22/24 mcg/actuation nasal spray,suspension naproxen sodium 220 mg capsule 220 mg PO HS #30 caps 05/03/24 omeprazole 40 mg capsule,delayed 40 mg PO BID #180 caps 05/07/24 release furosemide 20 mg tablet 20 mg PO DAILY #90 tabs 05/24/24 citalopram 10 mg tablet 10 mg PO DAILY #90 tabs 06/02/24 citalopram 20 mg tablet 20 mg PO DAILY #90 tabs 06/02/24 ibuprofen 800 mg tablet 800 mg PO Q8H PRN fever or pain 06/30/24 #100 tab-caps lisinopril 10 mg tablet See Rx Instructions .Route 07/29/24 .COMPLEX #180 tabs ferrous sulfate 325 mg (65 mg 325 mg PO Q OTHER DAY anemia #45 08/26/24 iron) tablet,delayed release tabs nitroglycerin 0.3 mg sublingual 0.3 mg sublingual Q5-15M PRN chest 08/26/24 tablet pain #30 tabs epinephrine 0.3 mg/0.3 mL See Rx Instructions .Route 10/18/24 injection, auto-injector .COMPLEX #2 mL Life Alert GPS Necklace #1 ea 10/21/24 atorvastatin 20 mg tablet See Rx Instructions .Route 10/21/24 .COMPLEX #90 tabs cetirizine 10 mg capsule (Zyrtec) 10 mg PO DAILY #90 caps 10/21/24 Allergies Allergy/AdvReac Type Severity Reaction Status Date / Time Penicillins Allergy Severe HOSPITALIZE Verified 10/21/24 09:28 D venom-honey bee Allergy Severe ANAPHYLAXSI Verified 10/21/24 09:28 S oxycodone AdvReac Severe HEART Verified 10/21/24 09:28 ATTACK LIKE SYMPTOMS amitriptyline AdvReac Intermediate WEIGHT Verified 10/21/24 09:28 GAIN ON 50 MG aspirin AdvReac Intermediate GI Verified 10/21/24 09:28 INTOLERANCE bupropion (From Wellbutrin) AdvReac Intermediate depression Verified 10/21/24 09:28 hydrocodone AdvReac Intermediate NAUSEA, Verified 10/21/24 09:28 CONFUSION hydroxychloroquine AdvReac Intermediate blurred Verified 10/21/24 09:28 vision and headache All Bees! Allergy Severe Anaphylaxis Uncoded 10/21/24 09:28 General Stated Complaint: Chest Pain SILVERIO: 2 Review of Systems Narrative: Review of systems are negative except as mentioned. Exam Narrative Exam Narrative: General appearance: The patient is alert, has no immediate need for airway protection and no signs of toxicity. Eyes: Pupils are round, equal and reactive. Mouth: Oral mucosal membranes are moist. Neck: The patient has left-sided paraspinal tenderness on palpation without midline cervical spine tenderness on palpation. Respiratory: There are no retractions, lung are clear to auscultation bilaterally. Cardiovascular: Regular in rate and rhythm. Radial pulses are intact and equal. Gastrointestinal: Abdomen is soft and non-tender to palpation throughout with normal bowel sounds. Neurologic: The patient is alert, awake and oriented to time, person and place. Musculoskeletal strength is intact and equal to bilateral upper and lower extremities. Sensation to light touch is intact and equal to bilateral upper and lower and extremities. Speech is clear. No facial asymmetry. Cranial nerves 2-12 motor function are intact and equal. Skin: Warm and dry. No scalp laceration or hematoma noted. Musculoskeletal: The patient has tenderness to palpation along the mid sternum without crepitus. The rest of her ribs bilaterally are nontender to palpation. She has tenderness palpation along the left shoulder without obvious deformity. No tenderness is noted to palpation of left humerus, elbow, forearm or wrist. She has intact sensation to light touch throughout the entire left upper extremity with intact extrusion die corrector strength on the left hand. She has equal radial pulses. Bilateral lower extremities are nontender to palpation and range of motion testing. The right upper extremity is nontender to palpation. Course Vital Signs Vital signs: Vital Signs Temperature 36.9 C 10/23/24 16:54 Pulse 54 L 10/23/24 16:54 Respiratory Rate 18 10/23/24 16:54 Blood Pressure 89/53 L 10/23/24 16:54 Pulse Oximetry 99 10/23/24 16:54 Temperature 36.9 C 10/23/24 16:54 Pulse 54 L 10/23/24 16:54 Respiratory Rate 18 10/23/24 16:54 Respiratory Effort Normal 10/23/24 17:06 Blood Pressure 89/53 L 10/23/24 16:54 Pulse Oximetry 99 10/23/24 16:54 Pain Level 7 10/23/24 16:54 Medical Decision Making Cardiac workup has been started on this patient however I have also ordered imaging study in the form of CAT scan of her head and neck given potential head trauma and complaint of neck pain after syncopal episode. I ordered x-ray of her shoulder also. The patient's lower back and they are baseline in comparison to prior. Her EKG is nondiagnostic. Imaging studies are back. CT head is unremarkable. C-spine is benign but she is found to have incidental finding and need outpatient follow-up. I did explain this to the patient, she voiced understanding of the plan and agreed. Chest x-ray showed the same incidental finding with nothing acute and the shoulder was benign as well. She has requested pain medication. I ordered Tylenol and ibuprofen. I updated the patient on workup result thus far and plan for repeat troponin x 1. She is willing to wait. I did a repeat EKG and she continues to be in sinus bradycardia. Second troponin is back and it continues to be unremarkable. I have spoken with the patient and his son and granddaughter regarding workup results thus far. I told him that her workup did not yield any particular explanation to her recurrent syncopal episode for the past 6 months now. I told him the workup is reassuring. I told him of recommendation for close follow-up with her research center partner and primary care doctor. I told her in the meantime if she does get worse or develop any new or concerning symptoms return to the emergency department immediately otherwise follow-up on outpatient basis. Prior to departure the patient was ambulated in the emergency department and did so without any issues. Imaging Data Radiologic Study: Imaging: X-Ray (Chest) Radiologist's impression: Abnormal right paratracheal density measuring approximately 4.5 x 3 cm. Follow-up CT scan recommended to rule out neoplasm. Radiologic Study #2: Imaging: X-Ray (Left shoulder) Radiologist's impression: No fractures. Degenerative changes in the left AC joint noted. Radiologic Study #3: Imaging: CT Scan (C-spine ) Radiologist's impression: No acute intracranial findings on this noninfused CT scan of the brain. No evidence of cervical spine fracture, malalignment, nor acute compromise of the cervical spinal canal. Multilevel chronic degenerative disc disease. Radiologic Study #4: Imaging: CT Scan (Head) Radiologist's impression: There are no skull fractures nor fluid in the visualized paranasal sinuses. There is no evidence of intracranial hemorrhage, mass effect, or shift of midline structures. There are no extra-axial fluid collections. The ventricles are not enlarged or shifted and there is no blood within the ventricular system nor within the basal cisterns. Lab Data Lab results reviewed: Yes I reviewed the patient's lab results. ECG Data Attestation: I personally reviewed and interpreted this ECG (s) as follows: (Sinus bradycardia at a rate of 57 with PACs without acute ischemic change) Interpretation: 2nd EKG from 185: Sinus bradycardia rate of 49 without acute ischemic change Quality:SDOH Health Related Social Needs: No Data to Display PFSH All Active Problems (Updated 10/23/24 @ 19:11 by Christina Santana DO) Chest wall contusion (Acute) Contusion of shoulder (Acute) Syncope and collapse (Acute) Syncope and collapse (Acute) History of rheumatoid arthritis (Acute) Chronic obstructive pulmonary disease, unspecified (Chronic) Lung nodule (Acute) Asthma (Chronic) Thyroid nodule (Acute) QT prolongation (Acute) Pleural mass (Acute) per CT (10/29/23), 2x2.1x1.7 cm in med rt lung apex [Breast Bx vs Lung Bx, 03/07/24] Thyroid disorder (Acute) left thyroid avidity per PET, [ ] US Lymphadenopathy (Acute) (-) for malignancy per 03/24/24 Pulm [facility].HE Chest pain at rest (Acute ~02/19/24) [facility] note 02/19/[address] imaging demonstrates avidity to enlarged lymph nodes above & below the diaphragm including, L chest wall lesion, & R upper mediastinal lesion. Plan for IR bx of her PET avid L chest wall lesion.HE Slow heart rate (Acute) Takes dietary supplements (Acute) Costochondral pain (Acute) Fibromyalgia (Acute) SOB (shortness of breath) on exertion (Acute) Sent to ED 12/18 by [facility] staff 2' SOB while talking! (then Dx with CP?) Impaired ambulation (Acute) Iron deficiency (Acute) 01/09/23 (8%), 06/2022 (13%), 08/2021 (5%) ..(Transf-Sat) (HFpEF) heart failure with preserved ejection fraction (Acute) per [facility] #1 (November-Dec 2022) .. but unclear Dx per #2 () ... Anemia (Chronic) iron infusions Hypokalemia (Acute) Hypertension (Chronic) Elevated BPs, with Hx HTN. Hx Rx per pt rpt? Starting lisinopril. Hypertensive retinopathy (Acute ~02/19/22) early, both Eyes Chest wall muscle strain (Acute) Ejection fraction < 50% (Acute) Ankle edema, bilateral (Acute) new onset Atypical chest pain (Acute) Neuropathy (Chronic) vs fibro? myalgias? Incontinence in female (Acute) Complicated grief (Acute) Shoulder pain, right (Acute) Acute on chronic pain, injury? Depressive disorder, not elsewhere classified (Chronic 08/04/11) Stress due to illness of family member (Acute) Bro w/ lung CA; Sister with CAD, recent PM/Bypass); Sis w/ ut cancer... Seasonal affective disorder (Acute) Arthritis (Acute 09/12/13) Hallux valgus with bunions (Acute 10/24/13) Headache (Acute 08/31/12) Spondylosis of cervical spine (Acute 07/06/14) Sleep disorder (Acute 02/01/13) care home ambien use Rheumatoid arthritis (Acute 09/20/13) R 2&3 MCP & TMP; Rheum Dr Bautista [facility] (09/2014) Primary osteoarthritis involving multiple joints (Acute 08/04/11) s/p bilateral TKA, following with Ortho (09/09/17) Myalgia and myositis, unspecified (Acute 08/04/11) Fibromyalgia Migraine (Acute 12/06/12) SINCE PUBERTY; ANTONIO-MENSTRUAL UNTIL 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; WORSE SINCE ~05/2011; Topirimate helps, Dr Fuller, Dr Cooper 2012 Please evaluate for BOTOX for worsening migraines Hyperlipidemia (Chronic 08/04/11) LDL GOAL 130; CV risk 5.1% 05/2016 Gastroesophageal reflux disease (Acute 08/04/11) + ON BA SWALLOW 11/2011; Omeprazole effective Degenerative joint disease of cervical spine (Acute 07/06/14) Medical History (Updated 10/23/24 @ 19:11 by Christina Santana DO) COVID (~02/27/23) Hx of epistaxis Respiratory failure Toxic effect of venom (08/04/11) Obesity, Class III, BMI 40-49.9 (morbid obesity) (08/04/11) Weight goal: 190 Localized adiposity of lower extremity (10/16/17) [facility] Dr Carlos Veras, Plastic surgery of bilateral legs, fullness surrounding knees. 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 Lymph node, fx: Lymph node w/ reactive follicular hyperplasia. Negative for metastatic carcinoma. F/U RHEUM ? RA or another autoimmune or inflammatory disorder for Lymphadenopathy.HE @ [facility] IR (?) awaiting notes and Bx .. S/P excision of lipoma (12/2018) [facility]-thigh tumor excision Ligation of fallopian tube (11/12/75) Dr Castro, [facility] Replacement of total knee joint (09/02/11) R Knee Dr Ted Spicer R Knee revsion Dr Hernandez [facility] L knee Dr Hernandez [facility] Replacement of total knee joint (07/25/09) R Knee Dr Ted Spicer R Knee revsion Dr Hernandez [facility] L knee Dr Hernandez [facility] Replacement of total knee joint (05/25/06) R Knee Dr Ted Spicer R Knee revsion Dr Hernandez [facility] L knee Dr Hernandez [facility] section (05/06/75) Dr Grant, [facility] Abdominal hysterectomy (07/11/98) Dr Arellano, [facility] Cholecystectomy (02/10/12) Dr Funes Appendectomy (07/11/98) Dr Arellano, along with hysterectomy Family History Mother , breast ca at age 47. Tobacco dependence Breast cancer Lung cancer COPD (chronic obstructive pulmonary disease) Father , renal failure at age 62. Tobacco dependence COPD (chronic obstructive pulmonary disease) Atrial fibrillation Renal failure Sister Age: 69 Tobacco dependence Lung cancer COPD (chronic obstructive pulmonary disease) Bladder cancer Sister Age: 71 Tobacco dependence Diabetes Brother Age: 69 Tobacco dependence COPD (chronic obstructive pulmonary disease) Heart disease Paternal Grandmother Diabetes Social History Smoking/Tobacco Use Status: Never Smoking risk assessment performed?: Yes Alcohol Intake: current Alcohol Intake frequency: holidays/special occasions only Drug use: Never Substance use type: does not use Adopted: No Caregiver/Support person: No Foster care: No Household members: none Housing: house Number of Children: 1 number of grandchildren: 1 Education Level: master's degree Do you need help understanding health information?: Rarely current occupation: retired Pets and animals: Yes Sexually active: No Do you think of yourself as: straight/heterosexual Current gender identity: female What is your relationship status?: How often do you talk on the phone with friends or family?: three or more times per week How often do you get together with friends or relatives?: three or more times per week Do you belong to any clubs or organized social groups?: yes Panel score (0-1 are the most socially isolated patients): 2 What type of physical activity do you participate in: walking Duration: 30-45 minutes/day Frequency: 3-4 times per week Ellen/Sabianist: Caodaism Special ellen needs: No Seatbelt use: always Helmet use: Yes Helmet use: never Drive intox or ride w/intox tour bus driver/guide: No Do you feel safe at home: Yes Do you feel safe in your relationship?: Yes
[2024-10-23 17:30] LABS: ALT 12 U/L (14-59); AST 18 U/L (15-37); Albumin 3.3 g/dL (3.4-5.0); Alkaline Phosphatase 82 U/L (46-116); BUN 21 mg/dL (7-18); Bilirubin, Total 0.3 mg/dL (0.2-1.0); CREATININE 1.1 mg/dL (0.55-1.02); Calcium 9.1 mg/dL (8.5-10.1); Chloride 103 mmol/L (98-107); Estimated GFR 53.06 (mL/min/1.73m2); Glucose 120 mg/dL (74-106); Potassium 3.7 mmol/L (3.5-5.1); Sodium 140 mmol/L (136-145); Total Protein 7.8 g/dL (6.4-8.2); Troponin I 9 ng/L (<or=51)
[2024-10-23] MEDS: Acetaminophen 500 MG TAB 1000 MG PO (17:57)
[2024-10-23] MEDS: Ibuprofen 800 MG TAB PO (18:11)
--- NOTE | 2024-10-23 18:45 | RT.EKG_ITS ---
APPROVED REPORT Exam: Resting ECG Reason for Exam: repeat EKG Patient Location: E HR:49 bpm ECG Measurements Heart Rate 49 AXIS SC 167 P 38 QRSd 96 QRS 3 QT 470 T 26 QTc 424 Conclusion Sinus bradycardia rate of 49 without acute ischemic change
[2024-10-23 18:59] LABS: Troponin I 8 ng/L (<or=51)
[2024-10-25 09:06] LABS: Iron 34 ug/dL (50-170); Total Iron Binding Capacity 276 ug/dL (250-450); Transferrin Sat 12 % (15-50)
[2024-10-25 14:33] LABS: Lab Add On Test DONE
== END 2024-10-23 19:26 | disposition home or self-care (01) ==
PROVIDERS: Emergency Provider Emergency Medicine; PCP Nurse Practitioner Family
DX: R55 Syncope and collapse (principal); S40.012A Contusion of left shoulder, initial encounter; S20.212A Contusion of left front wall of thorax, initial encounter; I11.0 Hypertensive heart disease with heart failure; I50.32 Chronic diastolic (congestive) heart failure; E78.5 Hyperlipidemia, unspecified; J44.9 Chronic obstructive pulmonary disease, unspecified; I69.354 Hemiplegia and hemiparesis following cerebral infarction affecting left non-dominant side; R00.1 Bradycardia, unspecified; W18.39XA Other fall on same level, initial encounter; Y93.89 Activity, other specified; Y92.018 Other place in single-family (private) house as the place of occurrence of the external cause
CPT/HCPCS: 36415; 80053; 93005; 99285; 70450; 71046; 72125; 73030; 83540; 83550; 84484; 85025; 93010

== ENCOUNTER 2024-12-07 02:26 | Outpatient (RCR) | payer MEDICARE, MEDICAID, SELFPAY ==
[2024-11-30] MEDS: IRON SUCROSE COMPLEX 200 MG in Normal Saline 100 ML 440 MG IVPB (12:58)
[2024-11-30] MEDS: Normal Saline Flush 10 ML SYR IVP (13:26)
[2024-12-07] MEDS: IRON SUCROSE COMPLEX 200 MG in Normal Saline 100 ML 440 MG IVPB (12:54)
[2024-12-07] MEDS: Normal Saline Flush 10 ML SYR IVP (12:55)
== END 2024-12-22 23:59 | disposition home or self-care (01) ==
LOC: INF 02:26
PROVIDERS: PCP Nurse Practitioner Family; Visit Provider Nurse Practitioner Family
DX: D50.9 Iron deficiency anemia, unspecified (principal)
CPT/HCPCS: 96365; J1756

== ENCOUNTER 2025-03-01 12:28 | Outpatient (CLI) | payer MEDICARE, MEDICAID, SELFPAY | END 2025-03-01 12:29 | disposition home or self-care (01) | LOC: LBO 12:32 | PROVIDERS: PCP Nurse Practitioner Family; Visit Provider Nurse Practitioner Family | DX: Z87.39 Personal history of other diseases of the musculoskeletal system and connective tissue (principal) | CPT/HCPCS: 36415; 86200; 86038; 86431 ==

== ENCOUNTER 2025-03-10 05:08 | Outpatient (CLI) | payer MEDICARE, MEDICAID, SELFPAY ==
--- NOTE | 2025-03-10 07:00 | DI.RAD_ITS ---
Exam(s) XR WRIST RT COMPLETE EXAM: XR WRIST RT COMPLETE CLINICAL HISTORY: rt wrist pain/swelling,m25.531. TECHNIQUE: 2D digital imaging was performed. Three views. COMPARISON: CR RIGHT HAND LIMITED from 09/15/2013 CR XR HAND RT COMPLETE from 07/06/2019 FINDINGS: BONES: No gross evidence of fracture. There has been significant interval aggression previously noted changes in the right wrist. There is now fusion between the distal carpal row. There severe erosions involving the distal radius and ulna causing severe deformity with loss of a large portion of the distal ulna and distal radius. Severe joint space narrowing. There is also deformity and erosions of the bones of the proximal carpal row. SOFT TISSUE: Marked soft tissue swelling. IMPRESSION: Severe bony erosions involving the distal radius and ulna as well as proximal carpal row with surrounding soft tissue swelling. Findings are consistent with severe rheumatoid arthritis. DATA REPOSITORY: RADIATION DOSE DELIVERED:
--- NOTE | 2025-03-10 07:00 | DI.RAD_ITS ---
Exam(s) XR WRIST LT COMPLETE EXAM: XR WRIST LT COMPLETE CLINICAL HISTORY: lt wrist pain/swelling,m25.532. TECHNIQUE: 2D digital imaging was performed. Three views. COMPARISON: CR RIGHT HAND LIMITED from 09/15/2013 CR XR WRIST RT COMPLETE from 03/10/2025 FINDINGS: BONES: No acute fracture is present. There is severe narrowing of the radial carpal joint. There are large erosions involving the distal radius near the articular surface. There is also widening and erosion at the distal radial ulnar joint. There are mild erosions of the ulnar styloid. There are severe degenerative changes of the intercarpal region as well as carpal metacarpal joints. There is abnormal widening of the scapholunate distance. This proximal migration of the capitate. SOFT TISSUE: Soft tissue swelling surrounding the wrist. IMPRESSION: Severe erosions and soft tissue swelling at the around the distal radius and ulna, consistent with rheumatoid arthritis.. DATA REPOSITORY: RADIATION DOSE DELIVERED:
--- NOTE | 2025-03-10 07:00 | DI.RAD_ITS ---
Exam(s) XR HIP LT COMPLETE AP PELVIS EXAM: XR HIP LT COMPLETE AP PELVIS CLINICAL HISTORY: ? OA, RA,LT HIP PAIN, M25.552. TECHNIQUE: 2D digital imaging was performed. Two views. COMPARISON: CT CT CHEST PE ABD PELVIS W from 12/16/2022 FINDINGS: BONES: There is severe narrowing of the left hip joint space, greater medially. There are multiple subchondral cysts as well as a and prominent periarticular spurring. There is also moderate to severe narrowing of the medial right hip joint space and periarticular spurring. No acute fracture is present. No bony destructive lesion is seen. JOINTS: No dislocation present. The SI joints and pubic symphysis show mild spurring.. No significant degenerative changes. SOFT TISSUE: Normal. IMPRESSION: Severe degenerative changes of the left hip. Moderate degenerative changes of right hip. DATA REPOSITORY: RADIATION DOSE DELIVERED:
== END 2025-03-10 05:28 ==
LOC: DI 05:08
PROVIDERS: PCP Nurse Practitioner Family; Visit Provider Nurse Practitioner Family
DX: M25.531 Pain in right wrist (principal); M25.532 Pain in left wrist; M25.552 Pain in left hip
CPT/HCPCS: 73110; 73502